=== PATIENT | female | born 1930 | race Caucasian/White ===

== ENCOUNTER 2017-12-16 02:53 | Emergency (ER) | payer OTHER ==
[~2017-12-16] VITALS: Ht 157.5 cm; Wt 58.1 kg
--- NOTE | 2017-12-16 03:31 | ED HEAD/FACIAL INJ COMPLAINT ---
History of Present Illness General Chief Complaint: Fall Stated Complaint: DIZZINESS,NOSE BLEEDING S/P FALL Source: patient, family, old records Exam Limitations: no limitations Vital Signs & Intake/Output Vital Signs & Intake/Output Vital Signs Date Time Temp Pulse Resp B/P B/P Pulse O2 O2 Flow FiO2 Mean Ox Delivery Rate 12/16 0600 97.3 82 18 122/70 97 Room Air 12/16 0303 98.2 97 18 155/74 Allergies Coded Allergies: NO KNOWN ALLERGIES (04/10/11) Reconcile Medications Meclizine HCl 25 MG TABLET 1 TAB PO Q8P PRN DIZZINESS Ondansetron (Zofran Odt) 4 MG TAB.RAPDIS 1 TAB SL TID PRN NAUSEA Triage Nurses Notes Reviewed? yes HPI: Patient got out of bed to go to the bathroom when she lost her balance and fell forward. Patient denies loss of consciousness. Patient hit her head on the floor. Positive nosebleed. Bleeding resolved prior to arrival. The patient went back to bed she began to develop room spinning dizziness with nausea. Patient comes in for evaluation. Patient denies any hip pain. Patient is able to ambulate without difficulty. There is no shoulder pain. There is no chest or abdominal pain. There is no shortness of breath. Past History Travel History Traveled to [place] past 21 day No Medical History Any Pertinent Medical History? see below for history Cardiovascular: hypertension, hyperlipidemia Musculoskeletal: osteoarthritis Surgical History Surgical History: non-contributory Psychosocial History Tobacco Use: Never used ETOH Use: denies use Illicit Drug Use: denies illicit drug use Family History Hx Contributory? No Review of Systems Review of Systems Constitutional: Reports: no symptoms. EENTM: Reports: see HPI, epistaxis. Respiratory: Reports: no symptoms. Cardiovascular: Reports: no symptoms. GI: Reports: no symptoms. Genitourinary: Reports: no symptoms. Musculoskeletal: Reports: no symptoms. Skin: Reports: no symptoms. Neurological/Psychological: Reports: no symptoms. Hematologic/Endocrine: Reports: no symptoms. Immunologic/Allergic: Reports: no symptoms. All Other Systems: Reviewed and Negative Physical Exam Physical Exam General Appearance: well developed/nourished, mild distress Head: normal appearance Eyes: Bilateral: PERRL, EOMI. Ears, Nose, Throat: normal pharynx, normal ENT inspection, hearing grossly normal, NO SEPTAL HEMATOMA Neck: normal inspection, supple Respiratory: normal breath sounds Cardiovascular: regular rate/rhythm Gastrointestinal: soft, non-tender Back: normal inspection Extremities: normal inspection, normal range of motion, no edema Psychiatric: awake, alert, oriented x 3 Cranial Nerves: normal hearing, normal speech, PERRL Coordination/Gait: normal gait Motor/Sensory: no motor/sensory deficits Skin: intact, normal color, warm/dry Lymphatic: no anterior cervical harvey Progress Differential Diagnosis: c-spine injury, facial fracture, ICH, skull fracture Plan of Care: Current Medications Sig/Rose Marie Start time Last Medication Dose Stop Time Status Admin Meclizine HCl 12.5 MG ONCE ONE 12/16 399 UNVr (Antivert) 12/16 400 Diagnostic Imaging: Viewed by Me: CT Scan. Discussed w/RAD: CT Scan. Radiology Impression: PATIENT: DORIS RESENDEZ PRESENT AGE: 87 PATIENT ACCOUNT NO: [id number] : 30 LOCATION: [facility] ORDERING PHYSICIAN: Morgan Castillo MD SERVICE DATE: 12/16/17 EXAM TYPE: CAT - CT CERV SPINE WO IV CONTRAST; CT HEAD WO IV CONTRAST; CT MAXILLOFACIAL W/O CON EXAMINATION: CT HEAD WITHOUT CONTRAST CT FACIAL BONES WITHOUT CONTRAST CT CERVICAL SPINE WITHOUT CONTRAST CLINICAL INFORMATION: Fall. Pain. COMPARISON: None. TECHNIQUE: Imaging was performed from the skull base to vertex without intravenous administration of contrast. In addition, helical noncontrast CT imaging was acquired through the cervical spine and facial bones and source images were reviewed along with axial reconstructions and sagittal and coronal MPRs. DLP: 1787.78 mGy-cm FINDINGS: HEAD: No intracranial mass, hemorrhage, or midline shift is visualized. There is atrophy with prominence of the ventricles and the sulci and hypodensity of the periventricular white matter due to chronic small vessel ischemic disease. There is vascular calcifications of the internal carotid arteries bilaterally. No extra-axial collections are identified. FACIAL BONES: There is no evidence of an acute facial bone fracture. The paranasal sinuses are well aerated. No significant dental disease is visualized. The orbits are unremarkable in appearance. CERVICAL SPINE: There is no evidence of acute cervical spine fracture. Vertebral bodies have normal height and alignment. No fracture. There is degenerative spondylosis. Multilevel advanced degenerative disc height narrowing and endplate spurring and facet joint arthrosis. No pre- or paravertebral soft tissue abnormality is identified. Limited assessment of the lung apices is unremarkable. IMPRESSION: 1. No acute intracranial process or discrete facial bone fracture. 2. No acute cervical spine fracture or traumatic subluxation. DICTATED BY: Johnathan Casey MD DATE/TIME DICTATED:12/16/17338 PROJECT COORDINATOR RN:YANY DATE/TIME TRANSCRIBED:338 CONFIDENTIAL, DO NOT COPY WITHOUT APPROPRIATE AUTHORIZATION. < Electronically signed in Other Vendor System> SIGNED BY: Johnathan Casey MD 351 Departure Departure Disposition: HOME OR SELF CARE Condition: Stable Clinical Impression Primary Impression: Head injury Secondary Impressions: Vertigo Referrals: Zoran Lainez MD (PCP/Family) Departure Forms: Customer Survey General Discharge Information Prescriptions: Current Visit Scripts Meclizine HCl 1 TAB PO Q8P PRN DIZZINESS #30 TAB Ondansetron (Zofran Odt) 1 TAB SL TID PRN NAUSEA #10 TAB
--- NOTE | 2017-12-16 03:52 | CT SCAN REPORT ---
EXAMINATION: CT HEAD WITHOUT CONTRAST CT FACIAL BONES WITHOUT CONTRAST CT CERVICAL SPINE WITHOUT CONTRAST CLINICAL INFORMATION: Fall. Pain. COMPARISON: None. TECHNIQUE: Imaging was performed from the skull base to vertex without intravenous administration of contrast. In addition, helical noncontrast CT imaging was acquired through the cervical spine and facial bones and source images were reviewed along with axial reconstructions and sagittal and coronal MPRs. DLP: 1787.78 mGy-cm FINDINGS: HEAD: No intracranial mass, hemorrhage, or midline shift is visualized. There is atrophy with prominence of the ventricles and the sulci and hypodensity of the periventricular white matter due to chronic small vessel ischemic disease. There is vascular calcifications of the internal carotid arteries bilaterally. No extra-axial collections are identified. FACIAL BONES: There is no evidence of an acute facial bone fracture. The paranasal sinuses are well aerated. No significant dental disease is visualized. The orbits are unremarkable in appearance. CERVICAL SPINE: There is no evidence of acute cervical spine fracture. Vertebral bodies have normal height and alignment. No fracture. There is degenerative spondylosis. Multilevel advanced degenerative disc height narrowing and endplate spurring and facet joint arthrosis. No pre- or paravertebral soft tissue abnormality is identified. Limited assessment of the lung apices is unremarkable. IMPRESSION: 1. No acute intracranial process or discrete facial bone fracture. 2. No acute cervical spine fracture or traumatic subluxation.
[2017-12-16] MEDS ORDERED: ZOFRAN ODT4 M1 SL (04:34)
[2017-12-16] MEDS ORDERED: MECLIZINE HCL25 MG PO (04:34)
[2017-12-16 06:00] VITALS: BP 122/70
== END 2017-12-16 06:02 ==
LOC: ERH 02:53
DX: S09.90XA Unspecified injury of head, initial encounter (principal); R42 Dizziness and giddiness; R04.0 Epistaxis; W19.XXXA Unspecified fall, initial encounter; Y93.89 Activity, other specified; Y92.9 Unspecified place or not applicable
CPT/HCPCS: J3101

== ENCOUNTER 2018-03-06 16:59 | Inpatient (IN) | payer OTHER ==
[~2018-03-06] VITALS: Ht 157.5 cm; Wt 58.5 kg
[~2018-03-06 16:59] MED LIST: ALENDRONATE SOD70 M2 PO; HYDROCHLOROTH12.5 M3 PO; MECLIZINE HCL25 MG PO; ZETIA10 M1 PO; ZOFRAN ODT4 M1 SL
--- NOTE | 2018-03-06 17:50 | ED INFLUENZA/URI COMPLAINT ---
History of Present Illness General Chief Complaint: General Adult Stated Complaint: +N, PAIN UPON INSPIRATION, WEAKNESS Source: patient, family, old records Exam Limitations: no limitations Vital Signs & Intake/Output Vital Signs & Intake/Output Vital Signs Date Time Temp Pulse Resp B/P B/P Pulse O2 O2 Flow FiO2 Mean Ox Delivery Rate 03/06 1729 Room Air 03/06 1716 98.1 100 22 130/88 98 Allergies Coded Allergies: NO KNOWN ALLERGIES (04/10/11) Reconcile Medications Alendronate Sodium 70 MG TABLET 1 TAB PO QW VITAMIN SUPPORT (Reported) in the morning, at least 30 minutes before the first food, beverage, or medication of the day Ezetimibe (Zetia) 10 MG TABLET 1 TAB PO DAILY HIGH CHOLESTROL (Reported) Hydrochlorothiazide 12.5 MG CAPSULE 1 CAP PO DAILY HIGH BLOOD PRESSURE ( Reported) Meclizine HCl 25 MG TABLET 1 TAB PO Q8P PRN DIZZINESS Ondansetron (Zofran Odt) 4 MG TAB.RAPDIS 1 TAB SL TID PRN NAUSEA Triage Note: 87F SAW PMD YESTERDAY FOR SUBSTERNAL CHEST/GASTRIC PAIN WORSE WITH BREATHING AND HAD XRAY DONE. +N AND POOR APPETITE X2-3 DAYS. REPORTS SUBECTIVE FEVERS, AFEBRILE IN TRIAGE. WHITE PRODUCTIVE COUGH FOR A COUPLE WEEKS. Triage Nurses Notes Reviewed? yes HPI: 87F PMH HLD, HTN presenting with a several week history of cough and weakness which has worsened acutely over the past few days. She has no appetite, is very weak and having trouble getting around. She has a productive cough with thick white sputum and is dyspneic with exertion. No sick contacts or recent travel. She is breathing comfortably at rest and speaking in complete sentences. Former smoker 40 pack-year, quit >10 years ago. She also reports nausea. She denies chills, vomiting, chest pain, abdominal pain, diarrhea, dysuria. Past History Travel History Traveled to [place] past 21 day No Medical History Any Pertinent Medical History? see below for history Neurological: NONE EENT: NONE Cardiovascular: hypertension, hyperlipidemia Respiratory: NONE Gastrointestinal: NONE Hepatic: NONE Renal: NONE Musculoskeletal: osteoarthritis Psychiatric: NONE Endocrine: NONE Blood Disorders: NONE Cancer(s): NONE CREDIT CONTROL OFFICER/Reproductive: NONE Surgical History Surgical History: non-contributory Psychosocial History What is your primary language Uzbek Tobacco Use: Refused to answer Family History Hx Contributory? No Review of Systems Review of Systems Constitutional: Reports: no symptoms. EENTM: Reports: no symptoms. Respiratory: Reports: see HPI. Cardiovascular: Reports: no symptoms. GI: Reports: no symptoms. Genitourinary: Reports: no symptoms. Musculoskeletal: Reports: no symptoms. Skin: Reports: no symptoms. Neurological/Psychological: Reports: no symptoms. Hematologic/Endocrine: Reports: no symptoms. Immunologic/Allergic: Reports: no symptoms. All Other Systems: Reviewed and Negative Physical Exam Physical Exam General Appearance: well developed/nourished, mild distress Head: atraumatic, normal appearance Eyes: Bilateral: normal appearance. Ears, Nose, Throat: normal ENT inspection, hearing grossly normal Neck: normal inspection, supple, full range of motion Respiratory: rhonchi bilaterally L>R Cardiovascular: regular rate/rhythm Gastrointestinal: soft, non-tender Back: normal inspection, normal range of motion Extremities: normal inspection, normal capillary refill, normal range of motion Neurologic/Psych: awake, alert, oriented x 3, normal mood/affect Skin: intact, normal color, warm/dry Core Measures Sepsis Present: No Sepsis Focused Exam Completed? No Progress Differential Diagnosis: influenza, meningitis, neutropenia, otitis, pneumonia, pharyngitis, sinusitis Plan of Care: Orders Procedure Date/time Status RAPID VIRAL INFLUENZA A 03/06 1745 Complete LOWER RESPIRATORY CULTURE 03/06 1745 Active EKG 03/06 1703 Active Current Medications Sig/Rose Marie Start time Last Medication Dose Stop Time Status Admin Ondansetron HCl 4 MG ONCE ONE 03/06 1815 UNVr 03/06 (Zofran) 03/06 1816 1836 Azithromycin 500 MG ONCE ONE 03/06 1800 UNVr 03/06 (Zithromax) 03/06 1859 1836 Sodium Chloride 250 ML (Normal Saline 0.9%) Ceftriaxone Sodium 1,000 MG ONCE ONE 03/06 1800 UNVr 03/06 (Rocephin) 03/06 1801 1835 Microbiology 03/06 181 NASOPHARYN: Influenza Virus A & B Rapid Smear - COMP 03/06 174 LOWER RESP: Respiratory Culture - ORD 03/06 174 LOWER RESP: Gram Stain - ORD Initial ED EKG: normal sinus rhythm, no ST T wave changes Departure Departure Disposition: STILL A PATIENT Condition: Stable Clinical Impression Primary Impression: Left lower lobe pneumonia Referrals: Zoran Lainez MD (PCP/Family) Departure Forms: Customer Survey General Discharge Information Admission Note Spoke With: Sesar Carrasquillo MD Documentation of Exam: Documentation of any treatments & extenuating circumstances including Concerns Regarding Discharge (functional status, medication knowledge or non-compliance, living conditions, etc.) that warrant an admission rather than observation: left sided pneumonia, poor PO intake, weakness, failed outpatient antibiotics, will admit for IV antibiotics, pulmonary consult, cultures, nutrition evaluation, physical therapy.
[2018-03-06] MEDS ORDERED: DOXYCYCLINE HY100 M4 PO (18:57)
[2018-03-06] MEDS ORDERED: METOPROLOL TART50 M1 PO (18:58)
[2018-03-06] MEDS ORDERED: SIMVASTATIN40 M1 PO (18:58)
[2018-03-06] MEDS ORDERED: ACETAMINOPHEN500 M4 PO (18:59)
[2018-03-06] MEDS ORDERED: ASPIRIN EC81 M1 PO (19:00)
--- NOTE | 2018-03-06 19:35 | History & Physical ---
KyVasquez 03/06/181926: General Information and HPI MD Statement: I have seen and personally examined DORIS RESENDEZ and documented this H&P. The patient is a 87 year old F who presented with a patient stated chief complaint of cough, shortness breath, chest pain and weakness for last 3 weeks. []. Source of Information: patient, old records Exam Limitations: no limitations History of Present Illness: 87 YO F ex-smoker with PMH of HTN, HLD and osteoarthritis came to ED with chief complaint of cough, shortness of breath, chest pain and weakness for last 3 weeks. Patient reported that she was in her usual state of health 3 weeks back when she noticed having cough that's intermittent and also associated phlegm that's whitish in color, not foul-smelling or blood in it. Patient reported that her exertional dyspnea is progressively worsening. She also reported the her cough is also worsening. She also developed having chest pain, sharp, 5/10 aggravated with deep breath, cough and no relieving factor. Patient also reported having orthopnea and she is using pillows and sleeping in recliner. Patient denied palpitations, lightheadedness, chills, fever, sick contact, trauma to the chest, vomiting, abdominal pain, diarrhea, constipation and dysuria. Patient also reported having nausea for last couple of weeks. Patient reported that she went to see Dr. Lainez for 3 days pack and she was started on antibiotics but she didn't get better so she decided to come to ED today. Patient was also using Mucinex for her cough. She is living at home with her daughter and taking care of herself. In December 2017 she fell down and passed out, after that she started to use a walker for walking. ED course: Vitals: Temperature 98.1, pulse 100, respiratory rate 22, blood pressure 130/88, oxygen saturation 98% on room air Labs: WBC count 14.3, hemoglobin 11.7, hematocrit 35.3, platelet count 659, sodium 136, potassium 3.8, anion gap 16, BUN 17, creatinine 0.7, glucose 110, HbA1c 6.0, AST 30, ALT 62, troponin less than 0.01, direct bilirubin 0.5 Rapid flu test was negative and sputum cultures were obtained in ED. Allergies/Medications Allergies: Coded Allergies: NO KNOWN ALLERGIES (04/10/11) Home Med list Acetaminophen 500 MG TABLET 2 TAB PO Q4H PRN PAIN (Reported) Alendronate Sodium 70 MG TABLET 1 TAB PO QSUN OSTEOPOROSIS (Reported) in the morning, at least 30 minutes before the first food, beverage, or medication of the day Aspirin (Ecotrin*) 81 MG TABLET.DR 1 TAB PO DAILY HEART/BLOOD (Reported) Doxycycline Hyclate 100 MG TABLET 1 TAB PO BID ABX (Reported) Ezetimibe (Zetia) 10 MG TABLET 1 TAB PO DAILY HIGH CHOLESTROL (Reported) Hydrochlorothiazide 12.5 MG CAPSULE 1 CAP PO DAILY HIGH BLOOD PRESSURE ( Reported) Metoprolol Tartrate 50 MG TABLET 1 TAB PO BID HEART/BP (Reported) Simvastatin (Simvastatin*) 40 MG TABLET 1 TAB PO QHS CHOLESTEROL (Reported) Past History Travel History Traveled to [place] past 21 day No Medical History Neurological: NONE EENT: NONE Cardiovascular: hypertension, hyperlipidemia Respiratory: NONE Gastrointestinal: NONE Hepatic: NONE Renal: NONE Musculoskeletal: osteoarthritis Psychiatric: NONE Endocrine: NONE Blood Disorders: NONE Cancer(s): NONE HEAD GROWER/Reproductive: NONE Surgical History Surgical History: non-contributory Review of Systems Review of Systems Constitutional: Reports: weakness. Denies: chills, fever. EENTM: Reports: no symptoms. Cardiovascular: Reports: chest pain. Denies: palpitations, syncope. Respiratory: Reports: cough, orthopnea, short of breath, sputum production. Denies: wheezing. GI: Denies: abdominal pain, constipation, diarrhea, melena, nausea, bloody stool. Genitourinary: Reports: no symptoms. Musculoskeletal: Reports: no symptoms. Skin: Reports: no symptoms. Hematologic/Endocrine: Reports: no symptoms. Exam & Diagnostic Data Last 24 Hrs of Vital Signs/I&O Vital Signs Date Time Temp Pulse Resp B/P B/P Pulse O2 O2 Flow FiO2 Mean Ox Delivery Rate 03/06 1926 98.4 99 20 109/68 94 Nasal 2.0L Cannula 03/06 1729 Room Air 03/06 171 98.1 100 22 130/88 98 Physical Exam General Appearance Alert, Oriented X3, Cooperative Skin No Rashes Skin Temp/Moisture Exam: Warm/Dry Sepsis Skin Exam (color): Normal for Ethnicity HEENT Atraumatic, PERRLA, EOMI Neck Supple Cardiovascular Normal S1, Normal S2 Lungs crepitus on left side Abdomen Soft, No Tenderness Neurological Normal Speech, Strength at 5/5 X4 Ext, Normal Tone Extremities No Edema Last 24 Hrs of Labs/Michael: Microbiology 03/06 181 NASOPHARYN: Influenza Virus A & B Rapid Smear - COMP 03/06 1745 LOWER RESP: Respiratory Culture - ORD 03/06 1745 LOWER RESP: Gram Stain - ORD Assessment/Plan Assessment: 87 YO F ex-smoker with PMH of HTN, HLD and osteoarthritis came to ED with chief complaint of cough, shortness of breath, chest pain and weakness for last 3 weeks. We will admit the patient on general medicine floor to treat for following problems: Community-acquired pneumonia: -Continue to respond to outpatient treatment -Supplemental oxygen as needed to keep oxygen saturation above 92% -TRC nebulization as needed -Mucinex for cough -Continue ceftriaxone and azithromycin. day 1 -Follow blood cultures -Follow sputum cultures -Urine strep and Legionella antigen -Incentive spirometry -Chest physiotherapy Chest pain: -Probably due to pleurisy -We will check her troponin EKG History of hypertension: -Continue her home medications History of hyperlipidemia: -Continue Lipitor History of osteoarthritis: -Follow pain pathway DVT prophylaxis: Mechanical and subcutaneous Lovenox CODE STATUS: Full code As Ranked By This Provider Problem List: 1. Left lower lobe pneumonia Core Measures/Misc (07/27) Acute Coronary Syndrome ACS Diagnosis: No Congestive Heart Failure Congestive Heart Failure Diagnosis No Cerebrovascular Accident CVA/TIA Diagnosis: No VTE (View Protocol) VTE Risk Factors Age>40 No Mechanical VTE Prophylaxis d/t N/A MechProphylax Ordered No VTE Pharm Prophylaxis d/t NA PharmProphylax ordered Sepsis (View protocol) Sepsis Present: No Nita Everett 03/07/18 0151: Resident Review Statement Resident Statement: examined this patient, discussed with internal grinder, agreed with internal grinder, reviewed images, amended to note Other Findings: 87-year-old lady with past medical history of gallbladder removal, appendectomy, hypertension, osteoarthritis, hyperlipidemia came to the hospital for chief complaint of cough and not feeling well. Patient reported that she had an episode of fall and concussion about one months ago and since then she had episodes of nausea. About 3 weeks ago she started developing cough with white phlegm mostly exertional dyspnea which is getting worse. She developed pleuritic chest pain due to coug as well which is sharp, 5 out of 10 in getting worse with deep breathing and coughing sometimes gets resolved by Tylenol. She reports having orthopnea and using pillows while sleeping. Denies any nausea, vomiting, fevers, chills, sick contacts, abdominal pain, constipation, dysuria, palpitations at the moment. Patient saw her PCP yesterday and was prescribed Mucinex and doxycycline however she was not feeling good and came to the hospital. Vitals in ED, no fevers, normal blood pressures, pulse rate 100, respiratory 22, 92% O2 saturation on 2 L Labs are notable for WBC 14.3(being elevated since December), hemoglobin 11.7( dropped from 13 0), platelet 659, sodium 136, chloride 97, direct bilirubin 0.7, AST 69, ALT 75, alkaline phosphatase 236.7, CRP more than 9, BNP is 763, troponin within normal limits, acetaminophen level less than 10 CXR: New tiny left pleural effusion. EKG showed nonspecific ST-T changes, QTc 434, sinus tachycardia 111 Physical exam Patient is alert and oriented 3 on 2 L oxygen not in distress Chest left-sided crackles in the base Heart S1-S2 normal, mild tachycardia Abdomen not distended, no tenderness Lower extremities has trace bilateral edema Assessment Shortness of breath and possible History of hypertension History of hyperlipidemia Transaminitis Elevated CRP Mildly elevated BMP Plan Admit to general medicine floor Check LFTs in the morning and limited abdominal ultrasound to rule out any biliary pathology (DDX at the moment is sepsis, remains gallstones in the bile duct, ) Mild IV hydration with 50 cc/h for 10 hours Hold hydrochlorothiazide and continue metoprolol Continue IV ceftriaxone and azithromycin Check UA, coagulation panel, LDH, retic count, LFTs in am Patient may need echocardiogram to rule out new onset CHF Hold a statin and continue Zetia If patient is still remained tachycardic but should do CTA and also CT abdomen and pelvis to rule out any intra-abdominal pathology and pulmonary embolism since the patient was less active during this month Full code, Tylenol for pain, heart healthy diet, DVT prophylaxis is mechanical and subq Sesar Sanabria MD 03/07/18 1516: Attending MD Review Statement Attending Statement Attending MD Statement: examined this patient, discuss w/resident/PA/CITY SURVEYOR, discussed with family, reviewed EMR data (avail), amended to note Attending Assessment/Plan: Please see Attending Brief Note
[2018-03-06 20:18] VITALS: BP 124/66
[2018-03-07 06:07] VITALS: BP 114/68
--- NOTE | 2018-03-07 06:12 | PN- Housestaff ---
See Addendum Subjective Follow-up For: Community-acquired pneumonia Transaminitis Subjective: No overnight events. Patient remained afebrile. Seen and examined this morning. She denied any palpitation, nausea, vomiting, abdominal pain and dysuria. Patient reported having chest pain while taking deep breaths 10. She also reported having cough with whitish colored sputum. Patient is using 2 L of oxygen and maintaining saturation 92% Review of Systems Constitutional: Denies: chills, fever. EENTM: Reports: no symptoms. Cardiovascular: Denies: chest pain, palpitations. Respiratory: Reports: cough, sputum production. Denies: short of breath, wheezing. Gastrointestinal: Denies: abdominal pain, constipation, diarrhea, nausea. Genitourinary: Reports: no symptoms. Neurological/Psychological: Reports: no symptoms. Objective Last 24 Hrs of Vital Signs/I&O Vital Signs Date Time Temp Pulse Resp B/P B/P Pulse O2 O2 Flow FiO2 Mean Ox Delivery Rate 03/07 0607 97.7 94 20 114/68 87 03/07 0126 124/66 03/07 0000 92 Nasal 2.0L Cannula 03/06 2018 97.5 107 19 124/66 92 Room Air 2.0L 03/06 2018 92 Nasal 2.0L Cannula 03/06 1926 98.4 99 20 109/68 94 Nasal 2.0L Cannula 03/06 1729 Room Air 03/06 1716 98.1 100 22 130/88 98 Intake & Output 03/07 0800 03/07 0000 03/06 1600 Intake Total 270 335 Output Total Balance 270 335 Intake, IV 150 275 Intake, Oral 120 60 Patient 128 lb Weight Weight Bed scale Measurement Method Physical Exam General Appearance: Alert, Oriented X3, Cooperative Skin Temp/Moisture Exam: Warm/Dry Sepsis Skin Exam (color): Normal for Ethnicity HEENT: Atraumatic, PERRLA, EOMI Neck: Supple Cardiovascular: Normal S1, Normal S2 Lungs: Clear to Auscultation Abdomen: Soft, No Tenderness Neurological: Normal Speech, Strength at 5/5 X4 Ext, Normal Tone Extremities: No Edema Assessment/Plan Assessment: 87 YO F ex-smoker with PMH of HTN, HLD and osteoarthritis came to ED with chief complaint of cough, shortness of breath, chest pain and weakness for last 3 weeks. We are following the patient for following problems: Community-acquired pneumonia: -Continue to respond to outpatient treatment -Supplemental oxygen as needed to keep oxygen saturation above 92% -TRC nebulization as needed -Mucinex for cough -Continue ceftriaxone and azithromycin. day 2 -Follow blood cultures -Follow sputum cultures -Urine strep and Legionella antigen -Incentive spirometry -Chest physiotherapy Chest pain: -Probably due to pleurisy -Her troponin and EKGs are negative for any ischemic cardiac injury. Transaminitis: -Possibly drug-induced. -Follow-up LFTs History of hypertension: -Continue her home medications History of hyperlipidemia: -Continue Lipitor History of osteoarthritis: -Follow pain pathway DVT prophylaxis: Mechanical and subcutaneous Lovenox CODE STATUS: Full code Problem List: 1. Left lower lobe pneumonia Pain Ratin Pain Location: none Pain Goal: Remain pain free Pain Plan: pain pathway Tomorrow's Labs & Rationales: cbc/bep/LFTs
--- NOTE | 2018-03-07 08:39 | ULTRASOUND REPORT ---
EXAMINATION: ABDOMINAL ULTRASOUND LIMITED CLINICAL INFORMATION: Elevated LFTs. COMPARISON: None. TECHNIQUE: Real-time imaging of the right upper quadrant abdominal viscera. FINDINGS: PANCREAS: The visualized pancreatic head and body are normal in appearance. The remainder of the pancreas is obscured from visualization by the overlying bowel gas. LIVER: The liver is of normal size and echogenicity without focal lesions nor intrahepatic biliary ductal dilation. GALLBLADDER: The patient is status post cholecystectomy. COMMON BILE DUCT: Normal in caliber measuring 0.8 cm in diameter. RIGHT KIDNEY: Normal. No hydronephrosis. No renal calculi or focal parenchymal lesions. The kidney measures 9.8 cm in maximum dimension. FREE FLUID: None. IMPRESSION: Unremarkable limited right upper quadrant ultrasound status post cholecystectomy.
[2018-03-07 10:23] LABS: PT 14.1 SEC (9.4-12.5); PTT 28 SEC (25-37)
[2018-03-07 10:43] LABS: ABSOLUTE BASOPHIL COUNT 0 /CUMM (0.0-0.2); ABSOLUTE EOSINOPHIL COUNT 0 /CUMM (0.0-0.7); ABSOLUTE GRANULOCYTE CT 12.3 /CUMM (1.4-6.5); ABSOLUTE LYMPH COUNT 1.3 /CUMM (1.2-3.4); ABSOLUTE MONOCYTE COUNT 0.9 /CUMM (0.10-0.60); BASOPHIL % 0 % (0.0-2.0); EOSINOPHIL % 0.2 % (0-5); GRANULOCYTE % 84.3 % (42.2-75.2); MEAN CORPUSCULAR HGB 28.9 PG (27.0-31.0); MEAN CORPUSCULAR HGB CONC 33.5 G/DL (33.0-37.0); MEAN CORPUSCULAR VOLUME 86.4 FL (81.0-99.0); MEAN PLATELET VOLUME 7.2 FL (7.4-10.4); PLATELET COUNT 600 /CUMM (130-400); RBC DISTRIBUTION WIDTH 14.8 % (11.5-14.5); RED BLOOD CELL CT 3.51 /CUMM (4.20-5.40)
[2018-03-07 12:07] LABS: HEMATOCRIT 30.3 % (37-47); WHITE BLOOD CELL COUNT 14.6 /CUMM (4.8-10.8)
--- NOTE | 2018-03-07 12:47 | CT SCAN REPORT ---
EXAMINATION: CT ANGIOGRAM OF THE CHEST WITH CONTRAST (CT PULMONARY ANGIOGRAM FOR PE) CLINICAL INFORMATION: Tachycardia. Elevated d-dimer. Evaluate for pulmonary embolism. COMPARISON: Chest CT from 12/20/2017. TECHNIQUE: Prior to contrast administration, noncontrast localization images were obtained. Subsequently, multidetector volumetric imaging was performed from the thoracic inlet to below the diaphragms following the administration of 80 mL of Optiray 320 intravenous contrast. No contrast reaction reported. Sagittal, coronal, and MIP oblique sagittal reformatted images were obtained on the CT workstation, uploaded to PACS, and reviewed. DLP: Total exam dose-length product 252 mGy-cm FINDINGS: QUALITY OF STUDY/CONTRAST BOLUS: Satisfactory. PULMONARY ARTERIES: Pulmonary arteries are normal in size. No embolic filling defects are identified within the main, lobar or segmental vessels. THORACIC AORTA: Mild atherosclerotic calcification of the thoracic aorta without aneurysm or dissection. LUNGS AND PLEURA: Trachea and central airways are widely patent and normal in caliber. There is wall calcification of the bronchial tree - relatively common finding in elderly patients. Uqpulftf-ux-moscxj centrilobular emphysema. Small bilateral pleural effusions with compressive atelectasis in lower lobes are new findings compared to 12/20/2017. Mild atelectasis in inferior lingula and medial segment of middle lobe, as well. CARDIOVASCULAR: The heart size is normal. There is mild atherosclerotic calcification of coronary arteries. No inward bowing of the interventricular septum. Xihkt-fz-vucaygeb pericardial effusion is new compared to 12/20/2017. MEDIASTINUM: The esophagus has normal wall thickness. Thyroid gland is atrophied. No mediastinal mass. LYMPHATICS: No internal mammary, axillary or hilar lymphadenopathy. Multiple small lymph nodes of < 1 cm short axis dimension are present in the mediastinum, not pathologic on the basis of size criteria. UPPER ABDOMEN: Gallbladder is surgically absent. No reflux of contrast into the IVC. OSSEOUS STRUCTURES: No aggressive osseous lesions. IMPRESSION: 1. No evidence of pulmonary embolism. 2. Centrilobular pulmonary emphysema. 3. Cfspf-zq-szpjpjaa pericardial effusion is new compared to 12/20/2017; consider possibility of pericarditis. 4. New, small pleural effusions and bibasilar atelectasis.
[2018-03-07 13:33] VITALS: BP 122/70
--- NOTE | 2018-03-07 13:36 | Event Note ---
Event Note Event Note: Patient presented with pleuritic chest pain and nonspecific ST/T-wave changes on EKG. CTA was performed for d-dimer elevation, hypoxia, and tachycardia out of concern of pulmonary embolism. CTA was negative for pulmonary embolism but did show signs of pericarditis with a new small to moderate pericardial effusion. After speaking to Dr. Carrasquillo and Dr. Crouch, we will transfer the patient to telemetry for further management and closer monitoring. I will get a repeat troponin and an echocardiogram. I will also start the patient on ibuprofen 600 mg 3 times daily and omeprazole 40mg QD for GI prophylaxis.
[2018-03-07 14:42] VITALS: BP 104/62
--- NOTE | 2018-03-07 15:12 | PN- Att Addend ---
Attending Addendum Attending Brief Note Mrs. Mann was interviewed and examined. Her EMR was reviewed. Her history and past medical history also reviewed reviewed. T 98.0 P 132 R 20 BP 122/70 SaO2 94% (4 L nasal cannula) telemetry sinus tach She is in no acute distress and alert and oriented 3. There is no JVD Pulmonary exam shows mildly decreased breath sounds with bilateral bibasilar fine inspiratory rales Cardiac exam is notable for tachyarrhythmia. There is a rub heard at the left sternal border. Abdomen is soft and nontender. Lower extremities are benign CBC shows WBC of 14,600, H&H of 10.1/30.3, and platelets of 600,000. Electrolytes showed mild hyponatremia/hypochloremia. Renal function is intact. Mild elevations in her LFTs are trending downward. Serial troponin are negative. EKG showing tachyarrhythmia with diffuse ST-T changes which are similar to a previous EKG with normal rate. CTA showing moderate to severe central emphysema with small bilateral pleural effusions. There is a new small to moderate sized pericardial effusion. Problems: -Pericardial effusion and an elderly female was noted progressive dyspnea and central pleuritic chest pain after an initial presumed viral illness -No evidence of infiltrate on CTA -Hypertension -Dyslipidemia -Osteoporosis -Mild hyponatremia, borderline hypokalemia -Resolving related LFTs Plan: -Patient initially admitted to [facility] but will now be transferred to telemetry -Patient will need echocardiogram -Serial troponin and EKG -follow LFT's -Hold HCTZ -Potassium supplementation -Continue beta kane and statin -indomethcin or ibuprofen -Cardiology consultation -discontinue azithromycin/ceftriaxone Case discussed with ED physician last evening again with resident this AM.
--- NOTE | 2018-03-07 15:23 | Cons- Cardiology ---
General Information and HPI Consulting Request Date of Consult: 03/07/18 Requested By: Sesar Carrasquillo MD Reason for Consult: Chest discomfort; probable pericarditis Source of Information: patient, family Exam Limitations: no limitations History of Present Illness: The patient is a pleasant 87-year-old female who is followed by Dr. Berger for her cardiac related issues. Her past medical history is remarkable for hypertension, hyperlipidemia, and osteoarthritis. The patient is admitted via the emergency room with 3 weeks of increasing shortness of breath, cough, and pleuritic/positional chest discomfort. The patient's story began in December where she had a syncopal episode and fall. Subsequently, she was seen in the emergency room twice in August for chest discomfort and nonspecific symptoms. She has now had worsening cough/shortness of breath/pleuritic chest discomfort over the last few weeks with a recent onset of nausea and anorexia. She has also noted worsening of her exertional dyspnea, per the patient. The patient was admitted yesterday via the emergency room to the nonmonitored floor for possible pneumonia, however, today, due to persistent tachycardia and chest discomfort she was moved to telemetry for closer monitoring. Allergies/Medications Allergies: Coded Allergies: NO KNOWN ALLERGIES (04/10/11) Home Med List: Acetaminophen 500 MG TABLET 2 TAB PO Q4H PRN PAIN (Reported) Alendronate Sodium 70 MG TABLET 1 TAB PO QSUN OSTEOPOROSIS (Reported) in the morning, at least 30 minutes before the first food, beverage, or medication of the day Aspirin (Ecotrin*) 81 MG TABLET.DR 1 TAB PO DAILY HEART/BLOOD (Reported) Doxycycline Hyclate 100 MG TABLET 1 TAB PO BID ABX (Reported) Ezetimibe (Zetia) 10 MG TABLET 1 TAB PO DAILY HIGH CHOLESTROL (Reported) Hydrochlorothiazide 12.5 MG CAPSULE 1 CAP PO DAILY HIGH BLOOD PRESSURE ( Reported) Metoprolol Tartrate 50 MG TABLET 1 TAB PO BID HEART/BP (Reported) Simvastatin (Simvastatin*) 40 MG TABLET 1 TAB PO QHS CHOLESTEROL (Reported) Current Medications: Current Medications Sig/Rose Marie Start time Last Medication Dose Route Stop Time Status Admin Acetaminophen 325 MG Q6P PRN 03/07 2345 CAN PO Acetaminophen 650 MG Q6P PRN 03/07 0145 AC 03/07 PO 0619 Acetaminophen 650 MG ONCE ONE 03/06 2315 DC 03/06 PO 03/06 2316 2333 Albuterol Sulfate 3 ML Q4P PRN 03/07 0800 AC 03/07 INH 0752 Aspirin Buffered 81 MG DAILY 03/07 0900 AC 03/07 PO 0918 Atorvastatin Calcium 20 MG 1700 03/07 1700 CAN PO Azithromycin 500 MG DAILY 03/07 1800 AC Sodium Chloride 250 ML IV Azithromycin 500 MG ONCE ONE 03/06 1800 DC 03/06 Sodium Chloride 250 ML IV 03/06 1859 1836 Benzonatate 100 MG TID PRN 03/07 0900 AC PO Ceftriaxone Sodium 1,000 MG DAILY 03/07 1800 AC IV Ceftriaxone Sodium 0 .STK-MED ONE 03/06 1832 DC .ROUTE Ceftriaxone Sodium 1,000 MG ONCE ONE 03/06 1800 DC 03/06 IV 03/06 1801 1835 Enoxaparin Sodium 40 MG DAILY 03/08 0900 AC SC Enoxaparin Sodium 40 MG DAILY 03/07 0900 DC SC Enoxaparin Sodium 30 MG DAILY 03/07 0900 DC SC Enoxaparin Sodium 30 MG DAILY 03/07 0900 DC 03/07 SC 0919 Ezetimibe 10 MG DAILY 03/07 0900 AC 03/07 PO 0918 Guaifenesin 10 ML Q4P PRN 03/06 2345 AC PO Ibuprofen 600 MG TID 03/07 1400 AC 03/07 PO 1316 Melatonin 3 MG ONCE ONE 03/07 2245 CAN PO 03/07 2246 Melatonin 3 MG AT BEDTIME 03/07 2100 DC PO Melatonin 3 MG ONCE ONE 03/06 2315 DC 03/06 PO 03/06 2316 2332 Metoprolol Tartrate 50 MG ONCE ONE 03/06 2345 DC 03/07 PO 03/06 2346 0126 Omeprazole 40 MG DAILY AC 03/07 1300 AC 03/07 PO 1316 Ondansetron HCl 0 .STK-MED ONE 03/06 1831 DC .ROUTE Ondansetron HCl 4 MG ONCE ONE 03/06 1815 DC 03/06 IV 03/06 1816 1836 Sodium Chloride 1,000 ML Q20H 03/07 0145 CAN IV 03/07 2144 Sodium Chloride 500 ML BOLUS ONE 03/07 0145 DC 03/07 IV 03/07 1144 0311 Past History Travel History Traveled to [place] past 21 day No Medical History Blood Transfusion Hx: Yes Neurological: NONE EENT: NONE Cardiovascular: hypertension, hyperlipidemia Respiratory: NONE Gastrointestinal: NONE Hepatic: NONE Renal: NONE Musculoskeletal: osteoarthritis Psychiatric: NONE Endocrine: NONE Blood Disorders: NONE Cancer(s): NONE RESERVATIONS SPECIALIST/Reproductive: NONE Surgical History Surgical History: CHOLECYSTECTOMY HERNIA Psychosocial History Where Do You Live? Home Smoking Status: Former Smoker Exam & Diagnostic Data Vital Signs and I&O Vital Signs Date Time Temp Pulse Resp B/P B/P Pulse O2 O2 Flow FiO2 Mean Ox Delivery Rate 03/07 1442 98.9 118 20 104/62 93 Nasal 4.0L Cannula 03/07 1333 98.0 132 20 122/70 94 Nasal Cannula 03/07 1108 Nasal 4.0L Cannula 03/07 0800 91 Nasal 4.0L Cannula 03/07 0607 97.7 94 20 114/68 87 03/07 0126 124/66 03/07 0000 92 Nasal 2.0L Cannula 03/06 2018 97.5 107 19 124/66 92 Room Air 2.0L 03/06 2018 92 Nasal 2.0L Cannula 03/06 1926 98.4 99 20 109/68 94 Nasal 2.0L Cannula 03/06 1729 Room Air 03/06 1716 98.1 100 22 130/88 98 Intake & Output 03/07 1600 03/07 0800 03/07 0000 03/06 1600 03/06 0800 03/06 0000 Intake Total 500 270 335 Output Total 350 Balance 150 270 335 Intake, IV 100 150 275 Intake, Oral 400 120 60 Output, Urine 350 Patient 128 lb Weight Weight Bed scale Measurement Method Physical Exam: General Appearance: well developed/nourished, elderly female, alert, awake, oriented, blood pressure 100/60, pulses paradoxus 10 mmHg, heart rate 106 Head: normal HEENT: Normal Neck: supple, JVP normal, carotid upstrokes normal bilaterally, no masses or thyromegaly Respiratory: chest non-tender, clear to auscultation and percussion bilaterally Cardiovascular: regular rate/rhythm, normal S1, S2, 2/6 systolic murmur left mid to lower sternal border Abdomen: normal bowel sounds, soft, non-tender Extremities: normal inspection, no edema Vascular: Pulses are 2+ and equal bilaterally Neurologic: Grossly normal/nonfocal Labs/Michael Results: Laboratory Tests 03/07 03/07 0806 0805 Chemistry Sodium (137 - 145 mmol/L) 131 L Potassium (3.5 - 5.1 mmol/L) 3.6 Chloride (98 - 107 mmol/L) 95 L Carbon Dioxide (22 - 30 mmol/L) 22 Anion Gap (5 - 16) 14 BUN (7 - 17 mg/dL) 12 Creatinine (0.5 - 1.0 mg/dL) 0.7 Estimated GFR (>60 ml/min) > 60 BUN/Creatinine Ratio (7 - 25 %) 17.1 Total Bilirubin (0.2 - 1.3 mg/dL) 0.7 Direct Bilirubin (< 0.4 mg/dL) 0.6 H AST (14 - 36 U/L) 40 H ALT (9 - 52 U/L) 49 Alkaline Phosphatase (<127 U/L) 187 H Troponin I (< 0.11 ng/ml) < 0.01 Total Protein (6.3 - 8.2 g/dL) 6.1 L Albumin (3.5 - 5.0 g/dL) 3.0 L Coagulation PT (9.4 - 12.5 SEC) 14.1 H INR (0.90 - 1.19) 1.29 H APTT (25 - 37 SEC) 28 D-Dimer High Sensitivty (0 - 243 ng/ml) 3944 H Hematology CBC w Diff NO MAN DIFF REQ WBC (4.8 - 10.8 /CUMM) 14.6 H RBC (4.20 - 5.40 /CUMM) 3.51 L Hgb (12.0 - 16.0 G/DL) 10.1 L Hct (37 - 47 %) 30.3 L MCV (81.0 - 99.0 FL) 86.4 MCH (27.0 - 31.0 PG) 28.9 MCHC (33.0 - 37.0 G/DL) 33.5 RDW (11.5 - 14.5 %) 14.8 H Plt Count (130 - 400 /CUMM) 600 H MPV (7.4 - 10.4 FL) 7.2 L Gran % (42.2 - 75.2 %) 84.3 H Lymphocytes % (20.5 - 51.1 %) 9.1 L Monocytes % (1.7 - 9.3 %) 6.4 Eosinophils % (0 - 5 %) 0.2 Basophils % (0.0 - 2.0 %) 0 Absolute Granulocytes (1.4 - 6.5 /CUMM) 12.3 H Absolute Lymphocytes (1.2 - 3.4 /CUMM) 1.3 Absolute Monocytes (0.10 - 0.60 /CUMM) 0.9 H Absolute Eosinophils (0.0 - 0.7 /CUMM) 0 Absolute Basophils (0.0 - 0.2 /CUMM) 0 Retic Count (0.5 - 2.0 %) 2.51 H Urines Urinalysis LIGHT H Urine Color (YEL,AMB,STR) BELINDA Urine Clarity (CLEAR) CLEAR Urine pH (5.0 - 8.0) 6.0 Ur Specific [place] (1.001 - 1.035) 1.025 Urine Protein (NEG,<30 MG/DL) NEG Urine Ketones (NEG) NEG Urine Nitrite (NEG) NEG Urine Bilirubin (NEG) NEG Urine Urobilinogen (0.1 - 1.0 EU/dl) 0.2 Ur Leukocyte Esterase (NEG) NEG Ur Microscopic SEDIMENT EXAMINED Urine RBC (0 - 5 /HPF) 1-3 Urine WBC (0 - 2 /HPF) 3-5 H Ur Epithelial Cells (NONE,FEW) OCCAS Urine Bacteria (NEG/NONE) FEW H Hyaline Casts (0/LPF) 10-15 H Granular Casts (NONE /LPF) 10-15 H Urine Mucus (FEW,NONE) FEW Urine Hemoglobin (NEG) TRACE-INTACT Urine Glucose (N MG/DL) NEG 03/060 Chemistry Total Bilirubin (0.2 - 1.3 mg/dL) 0.7 Direct Bilirubin (< 0.4 mg/dL) 0.7 H AST (14 - 36 U/L) 69 H ALT (9 - 52 U/L) 75 H Alkaline Phosphatase (<127 U/L) 235 H Lactate Dehydrogenase (313 - 618 U/L) 599 Troponin I (< 0.11 ng/ml) < 0.01 C-Reactive Prot, Quant (<1.0 mg/dL) > 9.0 H Tis-B-Yozswqqopzr Pept (<125 pg/mL) 763 H Total Protein (6.3 - 8.2 g/dL) 6.9 Albumin (3.5 - 5.0 g/dL) 3.5 Toxicology Acetaminophen (10.0 - 30.0 ug/mL) < 10.0 L Diagnostic Data EKG Results Sinus tachycardia with nonspecific ST-T changes. No change from prior EKG except for rate Other Results CTA chest: IMPRESSION: 1. No evidence of pulmonary embolism. 2. Centrilobular pulmonary emphysema. 3. Itujs-xe-cvikvtek pericardial effusion is new compared to 12/20/2017; consider possibility of pericarditis. 4. New, small pleural effusions and bibasilar atelectasis. Assessment/Plan Assessment/Plan Assessment: 1. Pleuritic/positional chest discomfort with pericardial effusion noted on chest CT; probable pericarditis; mild leukocytosis 1 a. 2/6 to 3/6 systolic murmur, possible pericardial rub, possible mitral insufficiency 2. History of syncope with possible chest trauma in December 3. Hypertension 4. Hyperlipidemia 5. Mild hyponatremia 6. Elevated liver function tests-improving Recommendations: -Monitor on telemetry -IV fluid hydration at 100 cc/h -Start nonsteroidal anti-inflammatory agents as discussed -Echocardiogram tomorrow -Please make sure that sed rate, proBNP, TSH, etc. have all been checked -In the absence of any overt infectious process, discontinue antibiotics -Hold diuretics -Follow-up labs in a.m. -Full cultures, including blood cultures to rule out occult issue such as endocarditis, etc. Consult Acknowledgment - Thank you for your consult request.
[2018-03-07 21:00] VITALS: BP 98/62
[2018-03-07 23:00] VITALS: BP 98/62
[2018-03-08 07:00] VITALS: BP 104/62
--- NOTE | 2018-03-08 08:40 | PN- Housestaff ---
Subjective Follow-up For: chest pain cough Tele-Events Since Last Visit: sinus rhythm 1st degree block HR 70s80s Subjective: patient continues to complain of persistent nonproductive cough, chest pain and weakness Review of Systems Constitutional: Reports: see HPI. Objective Last 24 Hrs of Vital Signs/I&O Vital Signs Date Time Temp Pulse Resp B/P B/P Pulse O2 O2 Flow FiO2 Mean Ox Delivery Rate 03/08 1816 100.7 03/08 1418 97.9 115 20 112/70 93 Nasal 3.0L Cannula 03/08 0847 92 Nasal 3.0L Cannula 03/08 0800 Nasal 4.0L Cannula 03/08 0700 97.7 91 20 104/62 92 03/08 0000 Nasal 4.0L Cannula 03/07 2300 97.5 88 18 98/62 95 03/07 2100 97.5 88 18 98 95 Intake & Output 03/08 1600 03/08 0800 03/08 0000 Intake Total 1250 800 360 Output Total Balance 1250 800 360 Intake, IV 800 700 300 Intake, Oral 450 100 60 Physical Exam General Appearance: Alert, Oriented X3, Cooperative, No Acute Distress Cardiovascular: Regular Rate, Normal S1, Normal S2, tachycardic Lungs: Clear to Auscultation, Normal Air Movement Abdomen: Normal Bowel Sounds, Soft, No Tenderness, No Masses Extremities: No Clubbing, No Cyanosis, No Edema, Normal Pulses Current Medications: Current Medications Sig/Rose Marie Start time Last Medication Dose Route Stop Time Status Admin Acetaminophen 650 MG Q6P PRN 03/07 0145 AC 03/08 PO 1816 Albuterol Sulfate 3 ML Q4P PRN 03/07 0800 AC 03/07 INH 0752 Aspirin Buffered 81 MG DAILY 03/07 09 AC 03/08 PO 0748 Azithromycin 500 MG DAILY 03/07 1800 AC 03/08 Sodium Chloride 250 ML IV 0740 Benzonatate 100 MG TID PRN 03/07 09 AC 03/08 PO 1651 Ceftriaxone Sodium 1,000 MG DAILY 03/07 1800 AC 03/08 IV 0740 Dextrose/Sodium 1,000 ML Q10H 03/07 1545 AC 03/08 Chloride IV 1738 Enoxaparin Sodium 40 MG DAILY 03/08 09 AC 03/08 SC 0748 Ezetimibe 10 MG DAILY 03/07 09 AC 03/08 PO 0748 Guaifenesin 600 MG Q12 03/08 2100 AC PO Guaifenesin 10 ML Q4P PRN 03/06 2345 AC PO Ibuprofen 600 MG TID 03/07 1400 AC 03/08 PO 0748 Omeprazole 40 MG DAILY AC 03/07 1300 AC 03/08 PO 0532 Potassium Chloride 40 MEQ ONCE ONE 03/08 1800 DC PO 03/08 1801 Last 24 Hrs of Lab/Michael Results Last 24 Hrs of Labs/Mics: Laboratory Tests 03/08/18 0600: IRVING Titer Pending, Anti-Nuclear Antibody Pending 03/08/18 0345: Anion Gap 12, Estimated GFR > 60, BUN/Creatinine Ratio 18.6, Total Bilirubin 0.3 , Direct Bilirubin 0.3, AST 27, ALT 41, Alkaline Phosphatase 172 H, Troponin I < 0.01, Total Protein 6.1 L, Albumin 2.9 L, Rheum Factor Semi-Quant 17.4 H 03/08/18 0316: Troponin I Cancelled 03/08/18 0136: Troponin I Cancelled Microbiology 03/08 1815 URINE ROUT: Urine Culture - COLB 03/08 1815 BLOOD: Blood Culture - COLB 03/08 1815 BLOOD: Blood Culture - COLB Assessment/Plan Assessment: 87 year old female with history of smoking, HTN, and HLD minimally productive cough, shortness of breath, chest pain and weakness for last 3 weeks. Community-acquired pneumonia: -Continue to respond to outpatient treatment -Supplemental oxygen as needed to keep oxygen saturation above 92% -TRC nebulization as needed -Mucinex for cough -Continue ceftriaxone and azithromycin -Follow blood cultures -Follow sputum cultures -Urine strep and Legionella antigen influenza all negative -Incentive spirometry -Chest physiotherapy Pleuritic chest pain: Negative troponins continue NSAIDs pericardial effusion on imaging ESR/CRP elevated Cardiology consulted, appreciate recommendations Check echocardiogram History of hypertension: -Continue her home medications History of hyperlipidemia: -Continue Lipitor heart healthy diet DVT ppx-Lovenox Full code Problem List: 1. Dehydration 2. Weakness Pain Ratin Pain Location: chest Pain Goal: Pain 4 or less Pain Plan: prn Tomorrow's Labs & Rationales: bep
[2018-03-08 14:18] VITALS: BP 112/70
--- NOTE | 2018-03-08 14:23 | PN- Att Addend ---
Attending Addendum Attending Brief Note Mrs. Mann was interviewed and examined. Her EMR was reviewed. She notes marked decrease in her chest pain. Tmax 98.9 P 91 RR 20 BP 104/62 telemetry short run of SVT overnight NAD BSE clear to A&P Regular rate and rhythm 2/6 CHOLO LLSB ESR 118 K+ 3.4 preliminary echo report showing slightly increased pericardial fluid Most likely pericarditis after a viral syndrome Heart rate and blood pressure stable post hydration Hypokalemia I would continue IV fluids and her ibuprofen at 600 mg orally every 8 hours Need to correct her potassium Continue on telemetry given her episode of arrhythmia Follow-up CBC in the a.m. along with her electrolytes.
--- NOTE | 2018-03-08 15:24 | PN- Cardiology ---
Subjective Subjective: The patient is feeling clinically better today. Less discomfort, less short of breath, less GI symptoms. Objective Vital Signs and I&Os Vital Signs Date Time Temp Pulse Resp B/P B/P Pulse O2 O2 Flow FiO2 Mean Ox Delivery Rate 03/08 1418 97.9 115 20 112/70 93 Nasal 3.0L Cannula 03/08 0847 92 Nasal 3.0L Cannula 03/08 0800 Nasal 4.0L Cannula 03/08 0700 97.7 91 20 104/62 92 03/08 0000 Nasal 4.0L Cannula 03/07 2300 97.5 88 18 98/62 95 03/07 2100 97.5 88 18 98/62 95 Intake & Output 03/08 1600 03/08 0800 03/08 0000 03/07 1600 03/07 0800 03/07 0000 Intake Total 1250 800 360 500 270 335 Output Total 350 Balance 1250 800 360 150 270 335 Intake, IV 800 700 300 100 150 275 Intake, Oral 450 100 60 400 120 60 Output, Urine 350 Patient 128 lb Weight Weight Bed scale Measurement Method Physical Exam: General Appearance: well developed/nourished, elderly female, alert, awake, oriented, blood pressure 100/60, pulses paradoxus 10 mmHg, heart rate 106 Head: normal HEENT: Normal Neck: supple, JVP normal, carotid upstrokes normal bilaterally, no masses or thyromegaly Respiratory: chest non-tender, clear to auscultation and percussion bilaterally Cardiovascular: regular rate/rhythm, normal S1, S2, 2/6 systolic murmur left mid to lower sternal border Abdomen: normal bowel sounds, soft, non-tender Extremities: normal inspection, no edema Vascular: Pulses are 2+ and equal bilaterally Neurologic: Grossly normal/nonfocal Current Medications: Current Medications Sig/Rose Marie Start time Last Medication Dose Route Stop Time Status Admin Acetaminophen 650 MG Q6P PRN 03/07 0145 AC 03/07 PO 0619 Albuterol Sulfate 3 ML Q4P PRN 03/07 0803/07 INH 0752 Aspirin Buffered 81 MG DAILY 03/07 09 AC 03/08 PO 0748 Azithromycin 500 MG DAILY 03/07 1800 03/08 Sodium Chloride 250 ML IV 0740 Benzonatate 100 MG TID PRN 03/07 09 AC PO Ceftriaxone Sodium 1,000 MG DAILY 03/07 1800 03/08 IV 0740 Dextrose/Sodium 1,000 ML Q10H 03/07 1545 AC 03/08 Chloride IV 0500 Enoxaparin Sodium 40 MG DAILY 03/08 0900 AC 03/08 SC 0748 Ezetimibe 10 MG DAILY 03/07 0900 AC 03/08 PO 0748 Guaifenesin 10 ML Q4P PRN 03/06 2345 AC PO Ibuprofen 600 MG TID 03/07 1400 AC 03/08 PO 0748 Omeprazole 40 MG DAILY AC 03/07 1300 AC 03/08 PO 0532 Results Last 48 Hrs of Labs/Mics: Laboratory Tests 03/08/18 0600: IRVING Titer Pending, Anti-Nuclear Antibody Pending 03/08/18 0345: Anion Gap 12, Estimated GFR > 60, BUN/Creatinine Ratio 18.6, Total Bilirubin 0.3 , Direct Bilirubin 0.3, AST 27, ALT 41, Alkaline Phosphatase 172 H, Troponin I < 0.01, Total Protein 6.1 L, Albumin 2.9 L, Rheum Factor Semi-Quant 17.4 H 03/08/18 0316: Troponin I Cancelled 03/08/18 0136: Troponin I Cancelled 03/07/18 1625: ESR Westergren 118 H 03/07/18 0806: Urinalysis LIGHT H, Urine Color BELINDA, Urine Clarity CLEAR, Urine pH 6.0, Ur Specific [place] 1.025, Urine Protein NEG, Urine Ketones NEG, Urine Nitrite NEG, Urine Bilirubin NEG, Urine Urobilinogen 0.2, Ur Leukocyte Esterase NEG, Ur Microscopic SEDIMENT EXAMINED, Urine RBC 1-3, Urine WBC 3-5 H, Ur Epithelial Cells OCCAS, Urine Bacteria FEW H, Hyaline Casts 10-15 H, Granular Casts 10-15 H, Urine Mucus FEW, Urine Hemoglobin TRACE-INTACT, Urine Glucose NEG 03/07/18 0805: Anion Gap 14, Estimated GFR > 60, BUN/Creatinine Ratio 17.1, Total Bilirubin 0.7 , Direct Bilirubin 0.6 H, AST 40 H, ALT 49, Alkaline Phosphatase 187 H, Troponin I < 0.01, Total Protein 6.1 L, Albumin 3.0 L, TSH 4.020, Free T4 2.31 H, PT 14.1 H, INR 1.29 H, APTT 28, D-Dimer High Sensitivty 3944 H, CBC w Diff NO MAN DIFF REQ, RBC 3.51 L, MCV 86.4, MCH 28.9, MCHC 33.5, RDW 14.8 H, MPV 7.2 L, Gran % 84.3 H, Lymphocytes % 9.1 L, Monocytes % 6.4, Eosinophils % 0.2, Basophils % 0, Absolute Granulocytes 12.3 H, Absolute Lymphocytes 1.3, Absolute Monocytes 0.9 H, Absolute Eosinophils 0, Absolute Basophils 0, Retic Count 2.51 H 03/06/18 2210: Total Bilirubin 0.7, Direct Bilirubin 0.7 H, AST 69 H, ALT 75 H, Alkaline Phosphatase 235 H, Lactate Dehydrogenase 599, Troponin I < 0.01, C-Reactive Prot, Quant > 9.0 H, [id number]-[id number] Pept 763 H, Total Protein 6.9, Albumin 3.5, Acetaminophen < 10.0 L Microbiology 03/07 806 URINE ROUT: Legionella Antigen - COMP 03/07 806 URINE ROUT: Streptococcus pneumoniae Antigen (M - COMP 03/06 1813 NASOPHARYN: Influenza Virus A & B Rapid Smear - COMP Assessment/Plan Assessment/Plan Assessment: 1. Pleuritic/positional chest discomfort with pericardial effusion noted on chest CT; probable pleural / pericarditis; mild leukocytosis-patient feels significantly better, though not at baseline, after IV fluid hydration and institution of nonsteroidal anti-inflammatory medications. 1 a. 2/6 to 3/6 systolic murmur, possible pericardial rub, possible mitral insufficiency 2. History of syncope with possible chest trauma in December 3. Hypertension 4. Hyperlipidemia 5. Mild hyponatremia 6. Elevated liver function tests-improving 7. Brief nonsustained SVT versus paroxysmal atrial fibrillation Recommendations: -Monitor on telemetry -IV fluid hydration at 100 cc/h -Start nonsteroidal anti-inflammatory agents as discussed -Echocardiogram shows mild aortic sclerosis, minimal mitral insufficiency, very small circumferential pericardial effusion, a small left pleural effusion, and mild to moderate tricuspid insufficiency with mild pulmonary hypertension. -Markedly elevated sed rate and CRP noted -In the absence of any overt infectious process, discontinue antibiotics -Hold diuretics -Follow-up labs in a.m. -Full cultures, including blood cultures to rule out occult issue such as endocarditis, etc. -Continue current management and supportive care for now. Out of bed as tolerated. Continue telemetry? Yes
[2018-03-08 22:42] VITALS: BP 116/74; BP 150/86
[2018-03-09 06:52] VITALS: BP 116/70
[2018-03-09 08:26] LABS: ABSOLUTE BASOPHIL COUNT 0 /CUMM (0.0-0.2); ABSOLUTE EOSINOPHIL COUNT 0.5 /CUMM (0.0-0.7); ABSOLUTE GRANULOCYTE CT 8.5 /CUMM (1.4-6.5); ABSOLUTE LYMPH COUNT 1.5 /CUMM (1.2-3.4); ABSOLUTE MONOCYTE COUNT 0.5 /CUMM (0.10-0.60); BASOPHIL % 0.4 % (0.0-2.0); EOSINOPHIL % 4.4 % (0-5); GRANULOCYTE % 77.4 % (42.2-75.2); HEMATOCRIT 29.5 % (37-47); MEAN CORPUSCULAR HGB 29.4 PG (27.0-31.0); MEAN CORPUSCULAR VOLUME 86.4 FL (81.0-99.0); MEAN PLATELET VOLUME 7.8 FL (7.4-10.4); PLATELET COUNT 561 /CUMM (130-400); RBC DISTRIBUTION WIDTH 14.8 % (11.5-14.5); RED BLOOD CELL CT 3.41 /CUMM (4.20-5.40); WHITE BLOOD CELL COUNT 10.9 /CUMM (4.8-10.8)
--- NOTE | 2018-03-09 08:40 | PN- Housestaff ---
Subjective Follow-up For: chest pain cough weakness Complaints: no complaints Tele-Events Since Last Visit: Normal sinus rhythm 80-92 a short run of SVT overnight Subjective: Patient seen and examined. She states that she did not sleep well last night. Patient denies any chest pain during interview. She is on 4 L of oxygen, does not require any oxygen at home, no chronic lung issues. Patient had a MAXIMUM TEMPERATURE yesterday of 100.7. Vitals overnight were stable other than the increased oxygen requirement. Review of Systems Constitutional: Reports: no symptoms. Cardiovascular: Reports: no symptoms. Respiratory: Reports: cough. Gastrointestinal: Reports: no symptoms. Genitourinary: Reports: no symptoms. Musculoskeletal: Reports: no symptoms. Skin: Reports: no symptoms. Objective Last 24 Hrs of Vital Signs/I&O Vital Signs Date Time Temp Pulse Resp B/P B/P Pulse O2 O2 Flow FiO2 Mean Ox Delivery Rate 03/09 1450 97.8 94 18 110/60 93 Nasal 2.0L Cannula 03/09 1421 94 Nasal 4.0L Cannula 03/09 0850 95 Nasal 4.0L Cannula 03/09 0652 97.7 100 28 116/70 95 Nasal 4.0L Cannula 03/09 0000 Nasal 4.0L Cannula 03/08 2242 98.3 99 28 116/74 95 03/08 2012 98.9 03/08 1915 100.7 03/08 1913 100.7 03/08 1911 100.7 03/08 1820 100.7 03/08 1816 100.7 03/08 1600 93 Nasal 4.0L Cannula Intake & Output 03/09 1600 03/09 0800 03/09 0000 Intake Total 930 272 1386 Output Total 600 300 Balance 100 850 880 Intake, IV 300 800 600 Intake, Oral 400 50 580 Output, Urine 600 300 Patient 137 lb Weight Physical Exam General Appearance: Alert, Oriented X3, Cooperative, No Acute Distress Skin: No Rashes, No Breakdown, No Significant Lesion Skin Temp/Moisture Exam: Warm/Dry Sepsis Skin Exam (color): Normal for Ethnicity HEENT: Atraumatic, PERRLA, EOMI, Mucous Membr. moist/pink Neck: Supple, No JVD Cardiovascular: Regular Rate, Normal S1, Normal S2, No Murmurs Lungs: lower lung friction rub appreciated Abdomen: Normal Bowel Sounds, Soft, No Tenderness Neurological: Normal Speech Extremities: No Clubbing, No Cyanosis, No Edema Vascular: Normal Pulses, Pulses Symmetrical Current Medications: Current Medications Sig/Rose Marie Start time Last Medication Dose Route Stop Time Status Admin Acetaminophen 650 MG .STK-MED ONE 03/09 0616 DC PO 03/09 0617 Acetaminophen 650 MG .STK-MED ONE 03/08 1814 DC PO 03/08 1815 Acetaminophen 650 MG Q6P PRN 03/07 0145 DC 03/09 PO 0616 Albuterol Sulfate 3 ML Q4P PRN 03/07 0800 AC 03/07 INH 0752 Aspirin Buffered 81 MG DAILY 03/07 0900 DC 03/09 PO 0802 Azithromycin 500 MG DAILY 03/07 1800 AC 03/09 Sodium Chloride 250 ML IV 0801 Benzonatate 100 MG TID PRN 03/07 0900 AC 03/08 PO 1651 Ceftriaxone Sodium 1,000 MG DAILY 03/07 1800 AC 03/09 IV 0802 Dextrose/Sodium 1,000 ML Q10H 03/07 1545 DC 03/09 Chloride IV 0353 Enoxaparin Sodium 40 MG DAILY 03/08 0900 AC 03/09 SC 0801 Ezetimibe 10 MG DAILY 03/07 0900 AC 03/09 PO 0801 Guaifenesin 600 MG Q12 03/08 2100 AC 03/09 PO 0802 Guaifenesin 10 ML Q4P PRN 03/06 2345 AC PO Ibuprofen 600 MG TID 03/07 1400 AC 03/09 PO 1309 Melatonin 5 MG AT BEDTIME 03/08 2100 AC 03/08 PO 2034 Omeprazole 40 MG DAILY AC 03/07 1300 AC 03/09 PO 0613 Potassium Chloride 40 MEQ ONCE ONE 03/08 1800 DC 03/08 PO 03/08 1801 1902 Ramelteon 8 MG ONCE ONE 03/08 2330 DC 03/08 PO 03/08 2331 2332 Last 24 Hrs of Lab/Michael Results Last 24 Hrs of Labs/Mics: Laboratory Tests 03/09/18 1350: ANCA Pending 03/09/18 1317: HIV 1&2 Ab Western Blot Cancelled 03/09/18 0630: Anion Gap 11, Estimated GFR > 60, BUN/Creatinine Ratio 6.7 L, CBC w Diff NO MAN DIFF REQ, RBC 3.41 L, MCV 86.4, MCH 29.4, MCHC 34.0, RDW 14.8 H, MPV 7.8, Gran % 77.4 H, Lymphocytes % 13.5 L, Monocytes % 4.3, Eosinophils % 4.4, Basophils % 0.4, Absolute Granulocytes 8.5 H, Absolute Lymphocytes 1.5, Absolute Monocytes 0.5, Absolute Eosinophils 0.5, Absolute Basophils 0, Hepatitis A IgM Ab NONREACTIVE, Hep Bs Antigen NONREACTIVE, Hep B Core IgM Ab Conf NONREACTIVE, Hepatitis C Antibody NONREACTIVE 03/09/18 0600: Cyclic Citrull Peptide Pending 03/08/18 2000: Urine Color YEL, Urine Clarity CLEAR, Urine pH 6.0, Ur Specific [place] 1.020, Urine Protein NEG, Urine Ketones NEG, Urine Nitrite NEG, Urine Bilirubin NEG, Urine Urobilinogen 0.2, Ur Leukocyte Esterase NEG, Ur Microscopic SEDIMENT EXAMINED, Urine RBC RARE, Urine WBC RARE, Ur Epithelial Cells RARE, Urine Bacteria RARE H, Urine Hemoglobin SMALL H, Urine Glucose NEG Microbiology 03/08 2000 URINE ROUT: Urine Culture - RES 03/08 1835 BLOOD: Blood Culture - RES 03/08 182 BLOOD: Blood Culture - RES Assessment/Plan Assessment: 87 year old female with history of smoking, HTN, and HLD minimally productive cough, shortness of breath, chest pain and weakness for last 3 weeks. Of note, the patient and her family states that since she fell in December, a drop attack with loss of consciousness, things have not been the same. Her admission from December was examined and no etiology was found. -Chest pain and cough: Could be secondary to pneumonia, no evidence on CTA but temperature 100.7 yesterday. The patient is currently on azithromycin and ceftriaxone. CTA ruled out pulmonary embolism. A small to moderate pericardial effusion that was new compared to her December reading was seen and could potentially be pericarditis. Today her ESR is found to be elevated at 120, CRP as well. RF was found to be positive. Also interestingly, patient does not use oxygen outpatient but has required 4 L here. No chest x-ray was done on admission but CTA did not show any significant pathology other than a moderate pericardial effusion and small pleural effusions. On physical exam, there was a cardiac rub noted by previous examiners. We did appreciate a pleural rub in the lower lung bowen bilaterally. Patient did have troponins and EKGs that were normal. -Continue to dose antibiotics ceftriaxone 1 g daily and azithromycin and ibuprofen 600 mg 3 times a day for potential pericarditis with a PPI 40 milligrams by mouth daily for gastric protection -Follow up IRVING -Repeat chest x-ray, depending on what that shows, ABG. -TRC nebulization as needed -Mucinex for cough -Follow blood cultures -Follow sputum cultures -Urine strep and Legionella antigen influenza all negative -Incentive spirometry -Chest physiotherapy -Cardiology consulted, appreciate recommendations Echocardiogram results: 1. Normal EF of 70%. 2. Mild tricuspid regurgitation. 3. Trace aortic regurgitation. 4. Mild pulmonary hypertension. 5. Trace pericardial effusion. -Hold diuretics and blood pressure medications as patient is between low to normal blood pressures. History of hyperlipidemia: -Continue Lipitor -Elevated liver function tests: Right upper quadrant ultrasound was normal status post cholecystectomy -Monitor heart healthy diet DVT ppx-Lovenox Full code Problem List: 1. Weakness 2. Pericardial effusion Pain Ratin Pain Location: na Pain Goal: Remain pain free Pain Plan: prn Tomorrow's Labs & Rationales: cbc bep
--- NOTE | 2018-03-09 09:13 | ECHOCARDIOGRAM REPORT ---
DORIS RESENDEZ Age: 87 : 1930 Gender: F Exam Date: 03/08/2018 10:20 Exam Location: [address] Ht (in): 62 Wt (lb): 128 BSA: 1.60 BP: 104 / 62 Ordering Physician: Reza Nielsen MD Referring Physician: Brody Berger MD, PhD Technologist: Vanessa Valentine [facility] Room Number: [id number] Indications: PERICARDIAL EFFUSION Rhythm: Sinus Technical Quality: good FINDINGS Left Ventricle Normal left ventricular size, wall thickness and systolic function with no obvious regional wall motion abnormalities. Normal left ventricular diastolic filling pattern for age. The ejection fraction is visually estimated at 70%. Right Ventricle The right ventricle is normal in size and function. Right Atrium The right atrium is normal in size. Left Atrium The left atrium is normal in size. The interatrial septum is intact. Mitral Valve The mitral valve is normal in structure and function. There is no mitral regurgitation. Aortic Valve Structurally normal aortic valve without significant sclerosis or stenosis. There is trace aortic regurgitation. Tricuspid Valve The tricuspid valve is normal in structure and function. There is mild tricuspid regurgitation. Pulmonary artery systolic pressure is mildly elevated. Pulmonic Valve Structurally normal pulmonic valve. There is no pulmonic regurgitation. Pericardium Normal pericardium with trace effusion. No pleural effusion. Great Vessels Normal aortic root dimension. The aortic arch and great vessels are well seen and are normal. CONCLUSIONS 1. Normal EF of 70%. 2. Mild tricuspid regurgitation. 3. Trace aortic regurgitation. 4. Mild pulmonary hypertension. 5. Trace pericardial effusion. Brody Berger M.D. (Electronically Signed) Final Date: 09 March 2018 09:13 MEASUREMENTS (Male / Female) Normal Values 2D ECHO LV Diastolic Diameter PLAX 3.8 cm 4.2 - 5.9 / 3.9 - 5.3 cm LV Systolic Diameter PLAX 2.4 cm 2.1 - 4.0 cm LV Fractional Shortening PLAX 36.8 % 25 - 46 % LV Ejection Fraction 2D Teich 67.5 % IVS Diastolic Thickness 1.1 cm LVPW Diastolic Thickness 1.0 cm LV Relative Wall Thickness 0.6 RV Internal Dim ED PLAX 2.1 cm 1.9 - 3.8 cm LVOT Diameter 1.8 cm Aortic Root Diameter 2.8 cm LA Systolic Diameter LX 3.3 cm 3.0 - 4.0 / 2.7 - 3.8 cm LA Volume 28.0 cm 18 - 58 / 22 - 52 cm Ascending Aorta Diameter 3.0 cm DOPPLER AV Peak Velocity 128.0 cm/s AV Peak Gradient 6.6 mmHg AV Mean Velocity 84.2 cm/s AV Mean Gradient 3.0 mmHg AV Velocity Time Integral 22.1 cm LVOT Peak Velocity 103.0 cm/s LVOT Peak Gradient 4.2 mmHg LVOT Mean Velocity 66.9 cm/s LVOT Mean Gradient 2.0 mmHg LVOT Velocity Time Integral 18.3 cm LVOT Stroke Volume 46.6 cm AV Area Cont Eq vti 2.1 cm AV Area Cont Eq pk 2.0 cm MV Peak Velocity 115.0 cm/s MV Peak Gradient 5.3 mmHg MV Mean Velocity 73.1 cm/s MV Mean Gradient 3.0 mmHg Mitral E Point Velocity 87.4 cm/s Mitral A Point Velocity 93.8 cm/s Mitral E to A Ratio 0.9 MV PHT Velocity 112.0 cm/s MV Deceleration Edgar 1167.0 cm/s MV Pressure Half Time 28.8 ms MV Area PHT 7.6 cm MV Deceleration Time 206.0 ms TR Peak Velocity 307.0 cm/s TR Peak Gradient 37.7 mmHg Right Atrial Pressure 5.0 mmHg Pulmonary Artery Systolic Pressu 42.7 mmHg Right Ventricular Systolic Press 42.7 mmHg PV Peak Velocity 85.1 cm/s PV Peak Gradient 2.9 mmHg PV Mean Velocity 49.0 cm/s PV Mean Gradient 1.0 mmHg PV Velocity Time Integral 10.4 cm LV E' Lateral Velocity 9.5 cm/s Mitral E to LV E' Lateral Ratio 9.2 LV E' Septal Velocity 9.2 cm/s Mitral E to LV E' Septal Ratio 9.5
--- NOTE | 2018-03-09 13:35 | PN- Att Addend ---
Attending Addendum Attending Brief Note Events over the weekend noted per patient on telemetry patient's at the bedside. Patient feels a little better was still weak, still wearing the oxygen. Temp max 100.7. Down this morning. No new changes on physical chest x-ray and echocardiogram noted. Will follow cardiology's recommendations. To get out of bed the PT evaluation. Intake & Output 03/09 040 Intake Total 850 1180 2050 360 770 335 Output Total 300 350 Balance 566 958 4540 360 420 335 Intake, IV 496 145 7457 300 250 275 Intake, Oral 50 580 550 60 520 60 Output, Urine 300 350 Patient 137 lb 128 lb Weight Weight Bed scale Measurement Method Laboratory Tests 03/09/18 1317: HIV 1&2 Ab Western Blot Cancelled 03/09/18 0630: Anion Gap 11, Estimated GFR > 60, BUN/Creatinine Ratio 6.7 L, CBC w Diff NO MAN DIFF REQ, RBC 3.41 L, MCV 86.4, MCH 29.4, MCHC 34.0, RDW 14.8 H, MPV 7.8, Gran % 77.4 H, Lymphocytes % 13.5 L, Monocytes % 4.3, Eosinophils % 4.4, Basophils % 0.4, Absolute Granulocytes 8.5 H, Absolute Lymphocytes 1.5, Absolute Monocytes 0.5, Absolute Eosinophils 0.5, Absolute Basophils 0, Hepatitis A IgM Ab Pending, Hep Bs Antigen Pending, Hep B Core IgM Ab Conf Pending, Hepatitis C Antibody Pending 03/09/18 06: Cyclic Citrull Peptide Pending 03/08/18 2000: Urine Color YEL, Urine Clarity CLEAR, Urine pH 6.0, Ur Specific [place] 1.020, Urine Protein NEG, Urine Ketones NEG, Urine Nitrite NEG, Urine Bilirubin NEG, Urine Urobilinogen 0.2, Ur Leukocyte Esterase NEG, Ur Microscopic SEDIMENT EXAMINED, Urine RBC RARE, Urine WBC RARE, Ur Epithelial Cells RARE, Urine Bacteria RARE H, Urine Hemoglobin SMALL H, Urine Glucose NEG 03/08/18 0600: IRVING Titer ND, Anti-Nuclear Antibody NEG 1:40 IFA ASSAY 03/08/18 0345: Anion Gap 12, Estimated GFR > 60, BUN/Creatinine Ratio 18.6, Total Bilirubin 0.3 , Direct Bilirubin 0.3, AST 27, ALT 41, Alkaline Phosphatase 172 H, Troponin I < 0.01, Total Protein 6.1 L, Albumin 2.9 L, Rheum Factor Semi-Quant 17.4 H 03/08/18 0316: Troponin I Cancelled 03/08/18 0136: Troponin I Cancelled 03/07/18 1625: ESR Westergren 118 H 03/07/18 0806: Urinalysis LIGHT H, Urine Color BELINDA, Urine Clarity CLEAR, Urine pH 6.0, Ur Specific [place] 1.025, Urine Protein NEG, Urine Ketones NEG, Urine Nitrite NEG, Urine Bilirubin NEG, Urine Urobilinogen 0.2, Ur Leukocyte Esterase NEG, Ur Microscopic SEDIMENT EXAMINED, Urine RBC 1-3, Urine WBC 3-5 H, Ur Epithelial Cells OCCAS, Urine Bacteria FEW H, Hyaline Casts 10-15 H, Granular Casts 10-15 H, Urine Mucus FEW, Urine Hemoglobin TRACE-INTACT, Urine Glucose NEG 03/07/18 0805: Anion Gap 14, Estimated GFR > 60, BUN/Creatinine Ratio 17.1, Total Bilirubin 0.7 , Direct Bilirubin 0.6 H, AST 40 H, ALT 49, Alkaline Phosphatase 187 H, Troponin I < 0.01, Total Protein 6.1 L, Albumin 3.0 L, TSH 4.020, Free T4 2.31 H, PT 14.1 H, INR 1.29 H, APTT 28, D-Dimer High Sensitivty 3944 H, CBC w Diff NO MAN DIFF REQ, RBC 3.51 L, MCV 86.4, MCH 28.9, MCHC 33.5, RDW 14.8 H, MPV 7.2 L, Gran % 84.3 H, Lymphocytes % 9.1 L, Monocytes % 6.4, Eosinophils % 0.2, Basophils % 0, Absolute Granulocytes 12.3 H, Absolute Lymphocytes 1.3, Absolute Monocytes 0.9 H, Absolute Eosinophils 0, Absolute Basophils 0, Retic Count 2.51 H 03/06/18 2210: Total Bilirubin 0.7, Direct Bilirubin 0.7 H, AST 69 H, ALT 75 H, Alkaline Phosphatase 235 H, Lactate Dehydrogenase 599, Troponin I < 0.01, C-Reactive Prot, Quant > 9.0 H, [id number]-Mjjjywhfhiu Pept 763 H, Total Protein 6.9, Albumin 3.5, Acetaminophen < 10.0 L Microbiology 03/08 2000 URINE ROUT: Urine Culture - RES 03/08 1835 BLOOD: Blood Culture - RES 03/08 1828 BLOOD: Blood Culture - RES 03/07 1327 UPPER RESP: Surveillance Culture - CAN Cancelled: SPECIMEN NOT RECEIVED IN LABORATORY 03/07 1327 GI: Surveillance Culture - CAN Cancelled: SPECIMEN NOT RECEIVED IN LABORATORY 03/07 0806 URINE ROUT: Legionella Antigen - COMP 03/07 0806 URINE ROUT: Streptococcus pneumoniae Antigen (M - COMP 03/06 2210 BLOOD: Blood Culture - RES 03/06 2210 BLOOD: Blood Culture - RES 03/06 1813 NASOPHARYN: Influenza Virus A & B Rapid Smear - COMP 03/06 1745 LOWER RESP: Respiratory Culture - CAN Cancelled: SPECIMEN NOT RECEIVED IN LABORATORY 03/06 1745 LOWER RESP: Gram Stain - CAN Cancelled: SPECIMEN NOT RECEIVED IN LABORATORY Microbiology 03/08 2000 URINE ROUT: Urine Culture - RES 03/08 1835 BLOOD: Blood Culture - RES 03/08 1828 BLOOD: Blood Culture - RES 03/07 1327 UPPER RESP: Surveillance Culture - CAN Cancelled: SPECIMEN NOT RECEIVED IN LABORATORY 03/07 1327 GI: Surveillance Culture - CAN Cancelled: SPECIMEN NOT RECEIVED IN LABORATORY 03/07 0806 URINE ROUT: Legionella Antigen - COMP 03/07 0806 URINE ROUT: Streptococcus pneumoniae Antigen (M - COMP 03/06 2210 BLOOD: Blood Culture - RES 03/06 2210 BLOOD: Blood Culture - RES 03/06 1813 NASOPHARYN: Influenza Virus A & B Rapid Smear - COMP 03/06 1745 LOWER RESP: Respiratory Culture - CAN Cancelled: SPECIMEN NOT RECEIVED IN LABORATORY 03/06 1745 LOWER RESP: Gram Stain - CAN Cancelled: SPECIMEN NOT RECEIVED IN LABORATORY Vital Signs Date Time Temp Pulse Resp B/P B/P Pulse O2 O2 Flow FiO2 Mean Ox Delivery Rate 03/09 0850 95 Nasal 4.0L Cannula 03/09 0652 97.7 100 28 116/70 95 Nasal 4.0L Cannula 03/09 0000 Nasal 4.0L Cannula 03/08 2242 98.3 99 28 116/74 95 03/08 2012 98.9 03/08 1915 100.7 03/08 1913 100.7 03/08 1911 100.7 03/08 1820 100.7 03/08 181 100.7 03/08 1600 93 Nasal 4.0L Cannula 03/08 1418 97.9 115 20 112/70 93 Nasal 3.0L Cannula
[2018-03-09 14:50] VITALS: BP 110/60
--- NOTE | 2018-03-09 15:51 | PN- Cardiology ---
Subjective Subjective: * Patient feels improved. * sinus rhythm * minimal to trace pericardial effusion with normal EF of her echo. * increased free T4 Objective Vital Signs and I&Os Vital Signs Date Time Temp Pulse Resp B/P B/P Pulse O2 O2 Flow FiO2 Mean Ox Delivery Rate 03/09 1450 97.8 94 18 110/60 93 Nasal 2.0L Cannula 03/09 1421 94 Nasal 4.0L Cannula 03/09 0850 95 Nasal 4.0L Cannula 03/09 0652 97.7 100 28 116/70 95 Nasal 4.0L Cannula 03/09 0000 Nasal 4.0L Cannula 03/08 2242 98.3 99 28 116/74 95 03/08 2012 98.9 03/08 1915 100.7 03/08 1913 100.7 03/08 1911 100.7 03/08 1820 100.7 03/08 1816 100.7 03/08 1600 93 Nasal 4.0L Cannula Intake & Output 03/09 1600 03/09 0800 03/09 0000 03/08 1600 03/08 0800 03/08 0000 Intake Total 478 874 6488 1250 800 360 Output Total 600 300 Balance 100 966 186 4415 800 360 Intake, IV 300 800 600 800 700 300 Intake, Oral 400 50 580 450 100 60 Output, Urine 600 300 Patient 137 lb Weight Physical Exam: General: WD/WN female in NAD; alert and oriented x 3 HEENT: NC/AT, PERRL, EOMI Neck: no JVD, no carotid bruit Heart: RRR with 2/6 systolic murmur at the apex Lungs: no crackles or wheezing Abdomen: soft, NT, +ve bowel sounds Extremties: no edema Assessment/Plan Assessment/Plan * This patient has chest discofort that is only in the setting of a cough. There is no exertional or positional chest discomfort. She does have a cough with increased WBC count and a fever. I suspect she has a bronchitis with muscle soreness from coughing. Her pericardial effusion is trace. In considertion of all the above, my suspicion of pericarditis is low. It may be that her pericardial effusion has decreased since the CT due to NSAIDS. It is reasonable to continue NSAIDS for three weeks but I would continue to treat with antibiotics for a bronchitic exacerbation of COPD which is my highest suspicion. Continue telemetry? Yes
[2018-03-09 18:34] VITALS: BP 104/76
[2018-03-09 22:11] VITALS: BP 124/88
--- NOTE | 2018-03-09 22:55 | RADIOLOGY REPORT ---
EXAMINATION: XR CHEST CLINICAL INFORMATION: Increased oxygen requirement. Presumptive diagnosis of question pleural effusion. COMPARISON: Several prior chest x-rays, most recent of which is dated 03/05/2018. CTA of the chest dated 03/07/2018. TECHNIQUE: AP sitting and lateral views of the chest were obtained. FINDINGS: The cardiomediastinal silhouette is within normal limits in size. Calcification of the aortic arch is seen. Small bilateral pleural effusions are seen with associated bibasilar opacities, unchanged from recent CT scan and likely due to subsegmental atelectasis. Superimposed or evolving pneumonia cannot be excluded. There is underlying obstructive lung disease. Diffuse osteopenia is seen. Upper abdominal jasbir in place, consistent with prior cholecystectomy. IMPRESSION: Small bilateral pleural effusions and associated bibasilar opacities are unchanged from CTA of the chest from 03/07/2018, but progressive compared to chest x-ray from 03/05/2018.
[2018-03-10 07:05] VITALS: BP 124/70
[2018-03-10 07:57] LABS: ABSOLUTE BASOPHIL COUNT 0 /CUMM (0.0-0.2); ABSOLUTE EOSINOPHIL COUNT 0.6 /CUMM (0.0-0.7); ABSOLUTE GRANULOCYTE CT 6.7 /CUMM (1.4-6.5); ABSOLUTE LYMPH COUNT 1.2 /CUMM (1.2-3.4); ABSOLUTE MONOCYTE COUNT 0.4 /CUMM (0.10-0.60); BASOPHIL % 0.4 % (0.0-2.0); EOSINOPHIL % 6.6 % (0-5); GRANULOCYTE % 74.4 % (42.2-75.2); MEAN CORPUSCULAR HGB 28.5 PG (27.0-31.0); MEAN CORPUSCULAR HGB CONC 32.6 G/DL (33.0-37.0); MEAN CORPUSCULAR VOLUME 87.5 FL (81.0-99.0); MEAN PLATELET VOLUME 7.1 FL (7.4-10.4); PLATELET COUNT 685 /CUMM (130-400); RBC DISTRIBUTION WIDTH 14.3 % (11.5-14.5); RED BLOOD CELL CT 3.43 /CUMM (4.20-5.40)
--- NOTE | 2018-03-10 08:03 | PN- Housestaff ---
Subjective Follow-up For: ?pericarditis bronchitis Complaints: no complaints Tele-Events Since Last Visit: nsr 77-101 first degree AVB Subjective: Patient reports that she slept well last night. No complaints, denies chest pain or shortness of breath. No headache, in good spirits. Review of Systems Constitutional: Reports: no symptoms. EENTM: Reports: no symptoms. Cardiovascular: Reports: no symptoms. Respiratory: Reports: no symptoms. Gastrointestinal: Reports: no symptoms. Genitourinary: Reports: no symptoms. Musculoskeletal: Reports: no symptoms. Skin: Reports: no symptoms. Neurological/Psychological: Reports: no symptoms. Objective Last 24 Hrs of Vital Signs/I&O Vital Signs Date Time Temp Pulse Resp B/P B/P Pulse O2 O2 Flow FiO2 Mean Ox Delivery Rate 03/10 1411 97.7 103 20 122/60 93 Room Air 03/10 1342 92 Room Air 03/10 1338 92 Room Air 03/10 1325 100 126/70 03/10 0705 101 16 124/70 94 Nasal 2.0L Cannula 03/09 2211 98.5 102 22 124/88 93 03/09 2044 Nasal 1.0L Cannula 03/09 1834 98.8 80 16 104/76 97 03/09 1604 93 Nasal 2.0L Cannula Intake & Output 03/10 1600 03/10 0800 03/10 0000 Intake Total 300 280 Output Total Balance 300 280 Intake, Oral 300 280 Number 1 Bowel Movements Patient 131 lb Weight Physical Exam General Appearance: Alert, Oriented X3, Cooperative, No Acute Distress Skin: No Rashes, No Breakdown, No Significant Lesion Skin Temp/Moisture Exam: Warm/Dry Sepsis Skin Exam (color): Normal for Ethnicity Neck: Supple, No JVD Cardiovascular: Regular Rate, Normal S1, Normal S2, No Murmurs, no rubs appreciated Lungs: Clear to Auscultation, Normal Air Movement Abdomen: Normal Bowel Sounds, Soft, No Tenderness Neurological: Normal Speech Current Medications: Current Medications Sig/Rose Marie Start time Last Medication Dose Route Stop Time Status Admin Acetaminophen 650 MG ONCE ONE 03/10 1215 DC 03/10 PO 03/10 1216 1209 Acetaminophen 325 MG ONCE ONE 03/10 0630 DC 03/10 PO 03/10 0631 0630 Albuterol Sulfate 3 ML Q4P PRN 03/07 0800 DC 03/07 INH 0752 Azithromycin 500 MG DAILY 03/11 900 CAN Sodium Chloride 250 ML IV Azithromycin 500 MG DAILY 03/07 1800 DC 03/10 Sodium Chloride 250 ML IV 0802 Benzonatate 100 MG TID PRN 03/07 0900 AC 03/09 PO 203 Ceftriaxone Sodium 1,000 MG DAILY 03/11 0900 CAN IV Ceftriaxone Sodium 1,000 MG DAILY 03/07 1800 DC 03/10 IV 0802 Enoxaparin Sodium 40 MG DAILY 03/08 0900 AC 03/10 SC 0802 Ezetimibe 10 MG DAILY 03/07 0900 AC 03/10 PO 0802 Guaifenesin 600 MG Q12 03/08 2100 AC 03/10 PO 0802 Guaifenesin 10 ML Q4P PRN 03/06 2345 AC PO Ibuprofen 600 MG TID 03/07 1400 AC 03/10 PO 1322 Melatonin 10 MG AT BEDTIME 03/09 2100 AC 03/09 PO 203 Metoprolol Tartrate 12.5 MG BID 03/10 1217 AC 03/10 PO 1325 Omeprazole 40 MG DAILY AC 03/07 1300 AC 03/10 PO 0552 Last 24 Hrs of Lab/Michael Results Last 24 Hrs of Labs/Mics: Laboratory Tests 03/10/1830: Anion Gap 11, Estimated GFR > 60, BUN/Creatinine Ratio 10.0, CBC w Diff NO MAN DIFF REQ, RBC 3.43 L, MCV 87.5, MCH 28.5, MCHC 32.6 L, RDW 14.3, MPV 7.1 L, Gran % 74.4, Lymphocytes % 13.7 L, Monocytes % 4.9, Eosinophils % 6.6 H, Basophils % 0.4, Absolute Granulocytes 6.7 H, Absolute Lymphocytes 1.2, Absolute Monocytes 0.4, Absolute Eosinophils 0.6, Absolute Basophils 0 Assessment/Plan Assessment: 87 year old female with history of smoking, HTN, and HLD minimally productive cough, shortness of breath, chest pain and weakness for last 3 weeks. Of note, the patient and her family states that since she fell in December, a drop attack with loss of consciousness, things have not been the same. Her admission from December was examined and no etiology was found. -Chest pain and cough: Could be secondary to pneumonia, no evidence on CTA but temperature Tmax was 100.7 two days back. The patient is currently on azithromycin and ceftriaxone for potential pneumonia. CTA ruled out pulmonary embolism. A small to moderate pericardial effusion that was new compared to her December reading was seen and could potentially be pericarditis. Today her ESR is found to be elevated at 120, CRP as well. RF was found to be positive. Also interestingly, patient does not use oxygen outpatient but has required 4 L here. No chest x-ray was done on admission but CTA did not show any significant pathology other than a moderate pericardial effusion and small pleural effusions. On physical exam, there was a cardiac rub noted by previous examiners, not noted today. We did appreciate a pleural rub in the lower lung bowen bilaterally yesterday as well but did not notice this today. Patient did have troponins and EKGs that were normal. -Continue to dose antibiotics ceftriaxone 1 g daily and azithromycin for one more day for potential pneumonia (may be bronchitis) and ibuprofen 600 mg 3 times a day for total three weeks for potential pericarditis with a PPI 40 milligrams by mouth daily for gastric protection -IRVING negative, follow up ANCA -Chest x-ray shows no change from CTA -TRC nebulization as needed -Mucinex for cough -Follow blood cultures -Follow sputum cultures -Urine strep and Legionella antigen influenza all negative -Incentive spirometry -Chest physiotherapy -Cardiology consulted, appreciate recommendations Echocardiogram results: 1. Normal EF of 70%. 2. Mild tricuspid regurgitation. 3. Trace aortic regurgitation. 4. Mild pulmonary hypertension. 5. Trace pericardial effusion. -Hold diuretics and blood pressure medications as patient is between low to normal blood pressures. History of hyperlipidemia: -Continue Lipitor -Elevated liver function tests: Right upper quadrant ultrasound was normal status post cholecystectomy -Monitor heart healthy diet DVT ppx-Lovenox Full code Problem List: 1. Pericardial effusion 2. Left lower lobe pneumonia 3. Bronchitis Pain Ratin Pain Location: na Pain Goal: Remain pain free Pain Plan: na Tomorrow's Labs & Rationales: cbc
--- NOTE | 2018-03-10 11:43 | Patient Discharge Instructions ---
Discharge Instructions General Discharge Information You were seen/treated for: 1. possible pericarditis 2. bronchitis You had these procedures: echocardiogram Special Instructions: 1. please follow up with your PCP in one week and discuss follow up testing for elevated rheumatic factor. Follow up ANCA level. 2. please follow up with your student finance specialist in one week 3. please take the full course of ibuprofen 600mg three times daily until the night of February 26. 4. please take with the omeprazole for gastric protection. Diet Continue normal diet: Yes Activity Full Activity/No Limits: Yes (as tolerated) Acute Coronary Syndrome Inclusion Criteria At DC or during hospital stay patient has or had the following: ACS DIAGNOSIS No Discharge Core Measures Meds if any: Prescribed or Continued at Discharge Meds if any: NOT Prescribed or Continued at Discharge Congestive Heart Failure Inclusion Criteria At DC or during hospital stay patient has or had the following: CHF DIAGNOSIS No Discharge Core Measures Meds if any: Prescribed or Continued at Discharge Meds if any: NOT Prescribed or Continued at Discharge Cerebrovascular accident Inclusion Criteria At DC or during hospital stay patient has or had the following: CVA/TIA Diagnosis No Discharge Core Measures Meds if any: Prescribed or Continued at Discharge Meds if any: NOT Prescribed or Continued at Discharge Venous thromboembolism Inclusion Criteria VTE Diagnosis No VTE Type NONE VTE Confirmed by (Test) NONE Discharge Core Measures - Per Current guidelines, there needs to be overlap - treatment for the first 5 days of Warfarin therapy. - If discharged on Warfarin prior to 5 days of - overlap therapy, the patient will need to be - assessed for post discharge needs including - *Post discharge parental anticoagulation - *Warfarin and/or parental anticoagulation education - *Follow up date to check INR post discharge At least 5 days overlap therapy as Inpatient No Meds if any: Prescribed or Continued at Discharge Note: Overlap Therapy is Warfarin and Anticoagulant Meds if any: NOT Prescribed or Continued at Discharge
--- NOTE | 2018-03-10 12:14 | PN- Cardiology ---
Subjective Subjective: * No chest discomfort, shortness of breath or palpitations. She does complain of a dry cough and fatigue. * sinus tachycardia * normalized WBC count Objective Vital Signs and I&Os Vital Signs Date Time Temp Pulse Resp B/P B/P Pulse O2 O2 Flow FiO2 Mean Ox Delivery Rate 03/10 0705 101 16 124/70 94 Nasal 2.0L Cannula 03/09 2211 98.5 102 22 124/88 93 03/09 2044 Nasal 1.0L Cannula 03/09 1834 98.8 80 16 104/76 97 03/09 1604 93 Nasal 2.0L Cannula 03/09 1450 97.8 94 18 110/60 93 Nasal 2.0L Cannula 03/09 1421 94 Nasal 4.0L Cannula Intake & Output 03/10 0803/10 0000 03/09 1600 03/09 0800 03/09 0000 Intake Total 300 280 974 668 6486 Output Total 600 300 Balance 300 280 100 850 880 Intake, IV 300 800 600 Intake, Oral 300 280 400 50 580 Number 1 Bowel Movements Output, Urine 600 300 Patient 131 lb 137 lb Weight Physical Exam: General: WD/WN female in NAD; alert and oriented x 3 HEENT: NC/AT, PERRL, EOMI Neck: no JVD, no carotid bruit Heart: tachycardiac and regular with 2/6 systolic murmur at the apex Lungs: no crackles or wheezing Abdomen: soft, NT, +ve bowel sounds Extremties: no edema Assessment/Plan Assessment/Plan * This patient has chest discofort that is only in the setting of a cough. The chest discomfort has resolved although her cough persists. I suspect she has a bronchitis with muscle soreness from coughing which is improving but is not resolved. Her pericardial effusion is trace. Continue antibiotic therapy. Continue NSAIDS to complete three weeks. The patient does not need telemetry. * At baseline this patient was on Metoprolol which was stopped. As such, she has mild tachycardia. Would restart Metoprolol at 12.5mg BID. Stable for discharge from a cardiac standpoint. Follow up in the office in one week. Continue telemetry? No
--- NOTE | 2018-03-10 13:11 | PN- Att Addend ---
Attending Addendum Attending Brief Note Patient feeling better doesn't have a headache her collar is improved Vital signs are stable no fever and no major changes on physical White count 9000, BUN and creatinine back to normal latest blood cultures negative so far will continue the anti-inflammatories and continue traveling buyer recommendations. Get the patient out of bed and have a physical therapy evaluation. Intake & Output 03/10 1600 03/10 0400 03/09 1600 03/09 0400 03/08 1600 03/08 0400 Intake Total 360 718 5082 1180 2050 360 Output Total 600 300 Balance 300 280 330 798 9905 360 Intake, IV 3414 509 7692 300 Intake, Oral 300 280 450 580 550 60 Number 1 Bowel Movements Output, Urine 600 300 Patient 131 lb 137 lb Weight Current Medications Sig/Rose Marie Start time Last Medication Dose Route Stop Time Status Admin Acetaminophen 650 MG ONCE ONE 03/10 1215 DC 03/10 PO 03/10 1216 1209 Acetaminophen 325 MG ONCE ONE 03/10 06 DC 03/10 PO 03/10 0631 0630 Acetaminophen 650 MG Q6P PRN 03/07 0145 DC 03/09 PO 0616 Albuterol Sulfate 3 ML Q4P PRN 03/07 0800 AC 03/07 INH 0752 Aspirin Buffered 81 MG DAILY 03/07 0900 DC 03/09 PO 0802 Azithromycin 500 MG DAILY 03/11 09 CAN Sodium Chloride 250 ML IV Azithromycin 500 MG DAILY 03/07 1800 DC 03/10 Sodium Chloride 250 ML IV 0802 Benzonatate 100 MG TID PRN 03/07 0900 AC 03/09 PO 203 Ceftriaxone Sodium 1,000 MG DAILY 03/11 09 CAN IV Ceftriaxone Sodium 1,000 MG DAILY 03/07 1800 DC 03/10 IV 0802 Enoxaparin Sodium 40 MG DAILY 03/08 0900 AC 03/10 SC 0802 Ezetimibe 10 MG DAILY 03/07 0900 AC 03/10 PO 0802 Guaifenesin 600 MG Q12 03/08 2100 AC 03/10 PO 0802 Guaifenesin 10 ML Q4P PRN 03/06 2345 AC PO Ibuprofen 600 MG TID 03/07 1400 AC 03/10 PO 0802 Melatonin 10 MG AT BEDTIME 03/09 2100 AC 03/09 PO 203 Melatonin 5 MG AT BEDTIME 03/08 2100 DC 03/08 PO 203 Metoprolol Tartrate 12.5 MG BID 03/10 1217 AC PO Omeprazole 40 MG DAILY AC 03/07 1300 AC 03/10 PO 0552 Laboratory Tests 03/10/18 0630: Anion Gap 11, Estimated GFR > 60, BUN/Creatinine Ratio 10.0, CBC w Diff NO MAN DIFF REQ, RBC 3.43 L, MCV 87.5, MCH 28.5, MCHC 32.6 L, RDW 14.3, MPV 7.1 L, Gran % 74.4, Lymphocytes % 13.7 L, Monocytes % 4.9, Eosinophils % 6.6 H, Basophils % 0.4, Absolute Granulocytes 6.7 H, Absolute Lymphocytes 1.2, Absolute Monocytes 0.4, Absolute Eosinophils 0.6, Absolute Basophils 0 03/09/18 1350: ANCA Pending 03/09/18 1317: HIV 1&2 Ab Western Blot Cancelled 03/09/18 0630: Anion Gap 11, Estimated GFR > 60, BUN/Creatinine Ratio 6.7 L, CBC w Diff NO MAN DIFF REQ, RBC 3.41 L, MCV 86.4, MCH 29.4, MCHC 34.0, RDW 14.8 H, MPV 7.8, Gran % 77.4 H, Lymphocytes % 13.5 L, Monocytes % 4.3, Eosinophils % 4.4, Basophils % 0.4, Absolute Granulocytes 8.5 H, Absolute Lymphocytes 1.5, Absolute Monocytes 0.5, Absolute Eosinophils 0.5, Absolute Basophils 0, Hepatitis A IgM Ab NONREACTIVE, Hep Bs Antigen NONREACTIVE, Hep B Core IgM Ab Conf NONREACTIVE, Hepatitis C Antibody NONREACTIVE 03/09/18 0600: Cyclic Citrull Peptide <16 03/08/18 2000: Urine Color YEL, Urine Clarity CLEAR, Urine pH 6.0, Ur Specific [place] 1.020, Urine Protein NEG, Urine Ketones NEG, Urine Nitrite NEG, Urine Bilirubin NEG, Urine Urobilinogen 0.2, Ur Leukocyte Esterase NEG, Ur Microscopic SEDIMENT EXAMINED, Urine RBC RARE, Urine WBC RARE, Ur Epithelial Cells RARE, Urine Bacteria RARE H, Urine Hemoglobin SMALL H, Urine Glucose NEG 03/08/18 0600: IRVING Titer ND, Anti-Nuclear Antibody NEG 1:40 IFA ASSAY 03/08/18 0345: Anion Gap 12, Estimated GFR > 60, BUN/Creatinine Ratio 18.6, Total Bilirubin 0.3 , Direct Bilirubin 0.3, AST 27, ALT 41, Alkaline Phosphatase 172 H, Troponin I < 0.01, Total Protein 6.1 L, Albumin 2.9 L, Rheum Factor Semi-Quant 17.4 H 03/08/18 0316: Troponin I Cancelled 03/08/18 0136: Troponin I Cancelled 03/07/18 1625: ESR [place] 118 H Microbiology 03/08 2000 URINE ROUT: Urine Culture - COMP 03/08 1835 BLOOD: Blood Culture - RES 03/08 1828 BLOOD: Blood Culture - RES 03/07 1327 UPPER RESP: Surveillance Culture - CAN Cancelled: SPECIMEN NOT RECEIVED IN LABORATORY 03/07 1327 GI: Surveillance Culture - CAN Cancelled: SPECIMEN NOT RECEIVED IN LABORATORY Microbiology 03/08 2000 URINE ROUT: Urine Culture - COMP 03/08 1835 BLOOD: Blood Culture - RES 03/08 1828 BLOOD: Blood Culture - RES 03/077 UPPER RESP: Surveillance Culture - CAN Cancelled: SPECIMEN NOT RECEIVED IN LABORATORY 03/07 1327 GI: Surveillance Culture - CAN Cancelled: SPECIMEN NOT RECEIVED IN LABORATORY Vital Signs Date Time Temp Pulse Resp B/P B/P Pulse O2 O2 Flow FiO2 Mean Ox Delivery Rate 03/10 0705 101 16 124/70 94 Nasal 2.0L Cannula 03/09 221 98.5 102 22 124/88 93 03/09 2044 Nasal 1.0L Cannula 03/09 1834 98.8 80 16 104/76 97 03/09 1604 93 Nasal 2.0L Cannula 03/09 1450 97.8 94 18 110/60 93 Nasal 2.0L Cannula 03/09 1421 94 Nasal 4.0L Cannula
[2018-03-10 14:11] VITALS: BP 122/60
[2018-03-10 23:00] VITALS: BP 122/70
[2018-03-11 06:24] VITALS: BP 100/68
[2018-03-11 08:10] LABS: ABSOLUTE BASOPHIL COUNT 0 /CUMM (0.0-0.2); ABSOLUTE EOSINOPHIL COUNT 0.6 /CUMM (0.0-0.7); ABSOLUTE GRANULOCYTE CT 6.8 /CUMM (1.4-6.5); ABSOLUTE LYMPH COUNT 1.4 /CUMM (1.2-3.4); ABSOLUTE MONOCYTE COUNT 0.4 /CUMM (0.10-0.60); BASOPHIL % 0.4 % (0.0-2.0); EOSINOPHIL % 6.8 % (0-5); GRANULOCYTE % 73.8 % (42.2-75.2); HEMATOCRIT 30.1 % (37-47); MEAN CORPUSCULAR HGB 28.8 PG (27.0-31.0); MEAN CORPUSCULAR HGB CONC 33.3 G/DL (33.0-37.0); MEAN CORPUSCULAR VOLUME 86.5 FL (81.0-99.0); MEAN PLATELET VOLUME 6.9 FL (7.4-10.4); PLATELET COUNT 769 /CUMM (130-400); RBC DISTRIBUTION WIDTH 14.7 % (11.5-14.5); RED BLOOD CELL CT 3.48 /CUMM (4.20-5.40); WHITE BLOOD CELL COUNT 9.2 /CUMM (4.8-10.8)
[2018-03-11 08:25] VITALS: BP 100/68
--- NOTE | 2018-03-11 11:18 | PN- Housestaff ---
Subjective Follow-up For: possible pericarditis bronchitis Complaints: no complaints Tele-Events Since Last Visit: nsr with first degree heart block 80-117 Subjective: Patient reports that she slept well last night again. She has no complaints and is eager to leave, denies chest pain or shortness of breath. No headache. Continues to have nonproductive cough. Review of Systems Constitutional: Reports: no symptoms. Cardiovascular: Reports: no symptoms. Respiratory: Reports: cough. Gastrointestinal: Reports: no symptoms. Genitourinary: Reports: no symptoms. Musculoskeletal: Reports: no symptoms. Neurological/Psychological: Reports: no symptoms. Objective Last 24 Hrs of Vital Signs/I&O Vital Signs Date Time Temp Pulse Resp B/P B/P Pulse O2 O2 Flow FiO2 Mean Ox Delivery Rate 03/11 0825 111 100/68 03/11 0800 92 Room Air 03/11 0624 98.0 97 20 100/68 92 Room Air 03/10 2300 98.0 102 18 122/70 92 Room Air 03/10 2026 102 120/72 03/10 1600 Room Air Intake & Output 03/11 1600 03/11 0800 03/11 0000 Intake Total 260 240 Output Total Balance 260 240 Intake, Oral 260 240 Patient 129 lb Weight Weight Bed scale Measurement Method Physical Exam General Appearance: Alert, Oriented X3, Cooperative, No Acute Distress Skin: No Rashes HEENT: Atraumatic, EOMI, Mucous Membr. moist/pink Cardiovascular: Regular Rate, Normal S1, Normal S2, No Murmurs Lungs: Clear to Auscultation, Normal Air Movement Abdomen: Soft, No Tenderness Extremities: No Clubbing, No Cyanosis, No Edema Current Medications: Current Medications Sig/Rose Marie Start time Last Medication Dose Route Stop Time Status Admin Benzonatate 100 MG .STK-MED ONE 03/10 1641 DC PO 03/10 164 Benzonatate 100 MG TID PRN 03/07 09 DCD 03/10 PO 1642 Enoxaparin Sodium 40 MG DAILY 03/08 09 DCD 03/11 SC 0826 Ezetimibe 10 MG DAILY 03/07 0900 DCD 03/11 PO 0826 Guaifenesin 600 MG Q12 03/08 2100 DCD 03/11 PO 0826 Guaifenesin 10 ML Q4P PRN 03/06 2345 DCD PO Ibuprofen 600 MG TID 03/07 1400 DCD 03/11 PO 1408 Melatonin 10 MG AT BEDTIME 03/09 2100 DCD 03/10 PO 2117 Metoprolol Tartrate 12.5 MG BID 03/10 1217 DCD 03/11 PO 0825 Omeprazole 40 MG DAILY AC 03/07 1300 DCD 03/11 PO 0545 Patient Medication 1 ED ONE ONE 03/10 1845 [facility] Teaching ED 03/10 1846 Last 24 Hrs of Lab/Michael Results Last 24 Hrs of Labs/Mics: Laboratory Tests 03/11/18 0640: CBC w Diff NO MAN DIFF REQ, RBC 3.48 L, MCV 86.5, MCH 28.8, MCHC 33.3, RDW 14.7 H, MPV 6.9 L, Gran % 73.8, Lymphocytes % 15.0 L, Monocytes % 4.0, Eosinophils % 6.8 H, Basophils % 0.4, Absolute Granulocytes 6.8 H, Absolute Lymphocytes 1.4, Absolute Monocytes 0.4, Absolute Eosinophils 0.6, Absolute Basophils 0 Assessment/Plan Assessment: 87 year old female with history of smoking, HTN, and HLD minimally productive cough, shortness of breath, chest pain and weakness for last 3 weeks. Of note, the patient and her family states that since she fell in December, a drop attack with loss of consciousness, things have not been the same. Her admission from December was examined and no etiology was found. Chest pain and cough: Could be secondary to pneumonia, no evidence on CTA but temperature Tmax was 100.7 two days back which then resolved, has been afebrile since. The patient was on azithromycin and ceftriaxone for potential pneumonia BUT IT WAS STOPPED TODAY. CTA ruled out pulmonary embolism. A small to moderate pericardial effusion that was new compared to her December reading was seen and could be a possible pericarditis. Today her ESR is found to be elevated at 120, CRP as well. RF was found to be positive. Also interestingly, patient does not use oxygen outpatient but has required 4 L here, WAS WEANED FROM O2 AND IS SATURATING WELL. No chest x-ray was done on admission but CTA did not show any significant pathology other than a moderate pericardial effusion and small pleural effusions. On physical exam, there was a cardiac rub noted by previous examiners, not noted today. We did appreciate a pleural rub in the lower lung bowen bilaterally previously as well but did not notice this today. Patient did have troponins and EKGs that were normal. -Infection not suspected, DC'd antibiotics. Continue ibuprofen 600 mg 3 times a day for total three weeks for potential pericarditis with a PPI 40 milligrams by mouth daily for gastric protection -IRVING negative, follow up ANCA outpatient -Chest x-ray shows no change from CTA -TRC nebulization as needed -Mucinex for cough -Follow blood cultures -Follow sputum cultures -Urine strep and Legionella antigen influenza all negative -Incentive spirometry -Chest physiotherapy -Cardiology consulted, appreciate recommendations Echocardiogram results: 1. Normal EF of 70%. 2. Mild tricuspid regurgitation. 3. Trace aortic regurgitation. 4. Mild pulmonary hypertension. 5. Trace pericardial effusion. -We restarted HCTZ which was held for dehydration on admission, 12.5mg daily -We restarted metoprolol 12.5mg bid in hospital History of hyperlipidemia: -Continue Lipitor -Elevated liver function tests: Right upper quadrant ultrasound was normal status post cholecystectomy -Monitor heart healthy diet DVT ppx-Lovenox Full code Problem List: 1. Bronchitis 2. Chest pain Pain Ratin Pain Location: na Pain Goal: Remain pain free Pain Plan: na Tomorrow's Labs & Rationales: na
[2018-03-11] MEDS ORDERED: IBUPROFEN600 M1 PO (12:03)
[2018-03-11] MEDS ORDERED: METOPROLOL TART25 M1 PO (12:03)
[2018-03-11] MEDS ORDERED: OMEPRAZOLE20 M2 PO ×2 (13:00→13:19)
--- NOTE | 2018-03-11 14:17 | PN- Att Addend ---
Attending Addendum Attending Brief Note Patient overall feeling better. Had 2 or 3 loose bowel movements earlier. Vital signs are stable no fever no major changes on physical exam white count 9200 hemoglobin 10 hematocrit 31,, blood cultures negative so far urine cultures negative. Some of the cough persists, but the pain is better with anti-inflammatories. Will follow cardiology's recommendations regarding the anti-inflammatories patient is finished with antibiotics today will start disposition plans for the patient to go home and follow-up with myself in the specialists. Intake & Output 03/11 1600 03/10 04003/09 1600 03/09 0400 Intake Total [phone] 5231 1180 Output Total 600 300 Balance 260 240 300 280 950 880 Intake, IV 1100 600 Intake, Oral 260 240 300 280 450 580 Number 1 Bowel Movements Output, Urine 600 300 Patient 129 lb 131 lb 137 lb Weight Weight Bed scale Measurement Method Current Medications Sig/Rose Marie Start time Last Medication Dose Route Stop Time Status Admin Benzonatate 100 MG .STK-MED ONE 03/10 164 AL PO 03/10 164 Benzonatate 100 MG TID PRN 03/07 0900 03/10 PO 1642 Enoxaparin Sodium 40 MG DAILY 03/08 0900 AC 03/11 SC 0826 Ezetimibe 10 MG DAILY 03/07 0900 AC 03/11 PO 0826 Guaifenesin 600 MG Q12 03/08 2100 AC 03/11 PO 0826 Guaifenesin 10 ML Q4P PRN 03/06 2345 AC PO Ibuprofen 600 MG TID 03/07 1400 AC 03/11 PO 1408 Melatonin 10 MG AT BEDTIME 03/09 2100 03/10 PO 2117 Metoprolol Tartrate 12.5 MG BID 03/10 1217 AC 03/11 PO 0825 Omeprazole 40 MG DAILY AC 03/07 1300 AC 03/11 PO 0545 Patient Medication 1 ED ONE ONE 03/10 184 [facility] ED 03/10 184 Laboratory Tests 03/11/18 0640: CBC w Diff NO MAN DIFF REQ, RBC 3.48 L, MCV 86.5, MCH 28.8, MCHC 33.3, RDW 14.7 H, MPV 6.9 L, Gran % 73.8, Lymphocytes % 15.0 L, Monocytes % 4.0, Eosinophils % 6.8 H, Basophils % 0.4, Absolute Granulocytes 6.8 H, Absolute Lymphocytes 1.4, Absolute Monocytes 0.4, Absolute Eosinophils 0.6, Absolute Basophils 0 03/10/18 0630: Anion Gap 11, Estimated GFR > 60, BUN/Creatinine Ratio 10.0, CBC w Diff NO MAN DIFF REQ, RBC 3.43 L, MCV 87.5, MCH 28.5, MCHC 32.6 L, RDW 14.3, MPV 7.1 L, Gran % 74.4, Lymphocytes % 13.7 L, Monocytes % 4.9, Eosinophils % 6.6 H, Basophils % 0.4, Absolute Granulocytes 6.7 H, Absolute Lymphocytes 1.2, Absolute Monocytes 0.4, Absolute Eosinophils 0.6, Absolute Basophils 0 03/09/18 1350: ANCA Pending 03/09/18 1317: HIV 1&2 Ab Western Blot Cancelled 03/09/18 0630: Anion Gap 11, Estimated GFR > 60, BUN/Creatinine Ratio 6.7 L, CBC w Diff NO MAN DIFF REQ, RBC 3.41 L, MCV 86.4, MCH 29.4, MCHC 34.0, RDW 14.8 H, MPV 7.8, Gran % 77.4 H, Lymphocytes % 13.5 L, Monocytes % 4.3, Eosinophils % 4.4, Basophils % 0.4, Absolute Granulocytes 8.5 H, Absolute Lymphocytes 1.5, Absolute Monocytes 0.5, Absolute Eosinophils 0.5, Absolute Basophils 0, Hepatitis A IgM Ab NONREACTIVE, Hep Bs Antigen NONREACTIVE, Hep B Core IgM Ab Conf NONREACTIVE, Hepatitis C Antibody NONREACTIVE 03/09/18 0600: Cyclic Citrull Peptide <16 03/08/181999: Urine Color YEL, Urine Clarity CLEAR, Urine pH 6.0, Ur Specific [place] 1.020, Urine Protein NEG, Urine Ketones NEG, Urine Nitrite NEG, Urine Bilirubin NEG, Urine Urobilinogen 0.2, Ur Leukocyte Esterase NEG, Ur Microscopic SEDIMENT EXAMINED, Urine RBC RARE, Urine WBC RARE, Ur Epithelial Cells RARE, Urine Bacteria RARE H, Urine Hemoglobin SMALL H, Urine Glucose NEG Microbiology 03/08 2000 URINE ROUT: Urine Culture - COMP 03/08 1835 BLOOD: Blood Culture - RES 03/08 182 BLOOD: Blood Culture - RES Microbiology 03/08 2000 URINE ROUT: Urine Culture - COMP 03/08 1835 BLOOD: Blood Culture - RES 03/08 1828 BLOOD: Blood Culture - RES Vital Signs Date Time Temp Pulse Resp B/P B/P Pulse O2 O2 Flow FiO2 Mean Ox Delivery Rate 03/11 08 111 100/68 03/11 0800 92 Room Air 03/11 0624 98.0 97 20 100/68 92 Room Air 03/10 2300 98.0 102 18 122/70 92 Room Air 03/10 2026 102 120/72 03/10 1600 Room Air
--- NOTE | 2018-03-16 20:30 | Discharge Summary ---
Visit Information Visit Dates Admission Date: 03/06/18 Discharge Date: 03/11/18 Hospital Course Course Attending Physician: Zoran Lainez MD Primary Care Physician: Zoran Lainez MD Consulting Request: Consulting Specialty: Cardiology Consulting Physician: Dr. Berger Reason for Consult: chest pain shortness of breath more pleural effusions and small pericardia Hospital Course: 87-year-old active female with history of hypertension hyperlipidemia osteo arthritis for the last 3 weeks not feeling well I saw her in the office for what looks like a bronchitis but given antibiotics but she did not feel good she continued having some shortness of breath and some chest pain were worse with inspiration comes to the emergency room is evaluated and admitted next morning she was tachycardic transfer to telemetry had a cardiology consultation, the EKG had nonspecific ST-T abnormalities such she might have pericarditis that she had a CTA of the chest which shows no PE but small pericardial effusions and possible pericarditis with a tiny pericardial effusion or atelectasis. Her sedimentation rate was elevated liver function tests were slightly abnormal her white count was elevated to diuretics were put on hold the reevaluated her colitis is less possibility of pericarditis nonsteroidal anti-inflammatories moved improved she also was kept on antibiotics before discharge her metoprolol was restarted diuretics were on hold able for discharge Complications: None Allergies: Coded Allergies: NO KNOWN ALLERGIES (04/10/11) Significant Procedures: SERVICE DATE: 03/05/18 EXAM TYPE: RAD - XRY-CHEST XRAY, TWO VIEWS EXAMINATION: XR CHEST CLINICAL INFORMATION: Cough for 3 weeks. COMPARISON: 12/21/2017 TECHNIQUE: 2 views of the chest were obtained. FINDINGS: Since the prior study, a tiny left pleural effusion has developed. A definite infiltrate is not seen. The heart size is within normal limits and there is no evidence of CHF. No suspicious lung masses are seen. IMPRESSION: New tiny left pleural effusion. SERVICE DATE: 03/07/1806 EXAM TYPE: US - US-LIMITED ABDOMEN EXAMINATION: ABDOMINAL ULTRASOUND LIMITED CLINICAL INFORMATION: Elevated LFTs. COMPARISON: None. TECHNIQUE: Real-time imaging of the right upper quadrant abdominal viscera. FINDINGS: PANCREAS: The visualized pancreatic head and body are normal in appearance. The remainder of the pancreas is obscured from visualization by the overlying bowel gas. LIVER: The liver is of normal size and echogenicity without focal lesions nor intrahepatic biliary ductal dilation. GALLBLADDER: The patient is status post cholecystectomy. COMMON BILE DUCT: Normal in caliber measuring 0.8 cm in diameter. RIGHT KIDNEY: Normal. No hydronephrosis. No renal calculi or focal parenchymal lesions. The kidney measures 9.8 cm in maximum dimension. FREE FLUID: None. IMPRESSION: Unremarkable limited right upper quadrant ultrasound status post cholecystectomy. SERVICE DATE: 03/07/18 EXAM TYPE: CAT - CTA CHEST-PULMONARY EMBOLISM EXAMINATION: CT ANGIOGRAM OF THE CHEST WITH CONTRAST (CT PULMONARY ANGIOGRAM FOR PE) CLINICAL INFORMATION: Tachycardia. Elevated d-dimer. Evaluate for pulmonary embolism. COMPARISON: Chest CT from 12/20/2017. TECHNIQUE: Prior to contrast administration, noncontrast localization images were obtained. Subsequently, multidetector volumetric imaging was performed from the thoracic inlet to below the diaphragms following the administration of 80 mL of Optiray 320 intravenous contrast. No contrast reaction reported. Sagittal, coronal, and MIP oblique sagittal reformatted images were obtained on the CT workstation, uploaded to PACS, and reviewed. DLP: Total exam dose-length product 252 mGy-cm FINDINGS: QUALITY OF STUDY/CONTRAST BOLUS: Satisfactory. PULMONARY ARTERIES: Pulmonary arteries are normal in size. No embolic filling defects are identified within the main, lobar or segmental vessels. THORACIC AORTA: Mild atherosclerotic calcification of the thoracic aorta without aneurysm or dissection. LUNGS AND PLEURA: Trachea and central airways are widely patent and normal in caliber. There is wall calcification of the bronchial tree - relatively common finding in elderly patients. Ytqyfsze-xc-dybhjd centrilobular emphysema. Small bilateral pleural effusions with compressive atelectasis in lower lobes are new findings compared to 12/20/2017. Mild atelectasis in inferior lingula and medial segment of middle lobe, as well. CARDIOVASCULAR: The heart size is normal. There is mild atherosclerotic calcification of coronary arteries. No inward bowing of the interventricular septum. Melhd-jc-uelvhhma pericardial effusion is new compared to 12/20/2017. MEDIASTINUM: The esophagus has normal wall thickness. Thyroid gland is atrophied. No mediastinal mass. LYMPHATICS: No internal mammary, axillary or hilar lymphadenopathy. Multiple small lymph nodes of < 1 cm short axis dimension are present in the mediastinum, not pathologic on the basis of size criteria. UPPER ABDOMEN: Gallbladder is surgically absent. No reflux of contrast into the IVC. OSSEOUS STRUCTURES: No aggressive osseous lesions. IMPRESSION: 1. No evidence of pulmonary embolism. 2. Centrilobular pulmonary emphysema. 3. Eswii-gd-bbalqoaw pericardial effusion is new compared to 12/20/2017; consider possibility of pericarditis. 4. New, small pleural effusions and bibasilar atelectasis. SERVICE DATE: 03/09/18- EXAM TYPE: RAD - XRY-CHEST XRAY, TWO VIEWS EXAMINATION: XR CHEST CLINICAL INFORMATION: Increased oxygen requirement. Presumptive diagnosis of question pleural effusion. COMPARISON: Several prior chest x-rays, most recent of which is dated 03/05/2018. CTA of the chest dated 03/07/2018. TECHNIQUE: AP sitting and lateral views of the chest were obtained. FINDINGS: The cardiomediastinal silhouette is within normal limits in size. Calcification of the aortic arch is seen. Small bilateral pleural effusions are seen with associated bibasilar opacities, unchanged from recent CT scan and likely due to subsegmental atelectasis. Superimposed or evolving pneumonia cannot be excluded. There is underlying obstructive lung disease. Diffuse osteopenia is seen. Upper abdominal jasbir in place, consistent with prior cholecystectomy. IMPRESSION: Small bilateral pleural effusions and associated bibasilar opacities are unchanged from CTA of the chest from 03/07/2018, but progressive compared to chest x-ray from 03/05/2018. Pertinent Lab Results: 03/06/18 2210: Total Bilirubin 0.7, Direct Bilirubin 0.7 H, AST 69 H, ALT 75 H, Alkaline Phosphatase 235 H, Lactate Dehydrogenase 599, Troponin I < 0.01, C-Reactive Prot, Quant > 9.0 H, Nck-I-Ozsmyjxukij Pept 763 H, Total Protein 6.9, Albumin 3.5, Acetaminophen < 10.0 L 03/07/18 0805: Anion Gap 14, Estimated GFR > 60, BUN/Creatinine Ratio 17.1, Total Bilirubin 0.7 , Direct Bilirubin 0.6 H, AST 40 H, ALT 49, Alkaline Phosphatase 187 H, Troponin I < 0.01, Total Protein 6.1 L, Albumin 3.0 L, TSH 4.020, Free T4 2.31 H, PT 14.1 H, INR 1.29 H, APTT 28, D-Dimer High Sensitivty 3944 H, CBC w Diff NO MAN DIFF REQ, RBC 3.51 L, MCV 86.4, MCH 28.9, MCHC 33.5, RDW 14.8 H, MPV 7.2 L, Gran % 84.3 H, Lymphocytes % 9.1 L, Monocytes % 6.4, Eosinophils % 0.2, Basophils % 0, Absolute Granulocytes 12.3 H, Absolute Lymphocytes 1.3, Absolute Monocytes 0.9 H, Absolute Eosinophils 0, Absolute Basophils 0, Retic Count 2.51 H 03/07/18 1625: ESR Westergren 118 H 03/07/18 0806: Urinalysis LIGHT H, Urine Color BELINDA, Urine Clarity CLEAR, Urine pH 6.0, Ur Specific [place] 1.025, Urine Protein NEG, Urine Ketones NEG, Urine Nitrite NEG, Urine Bilirubin NEG, Urine Urobilinogen 0.2, Ur Leukocyte Esterase NEG, Ur Microscopic SEDIMENT EXAMINED, Urine RBC 1-3, Urine WBC 3-5 H, Ur Epithelial Cells OCCAS, Urine Bacteria FEW H, Hyaline Casts 10-15 H, Granular Casts 10-15 H, Urine Mucus FEW, Urine Hemoglobin TRACE-INTACT, Urine Glucose NEG 03/08/18 2000: Urine Color YEL, Urine Clarity CLEAR, Urine pH 6.0, Ur Specific [place] 1.020, Urine Protein NEG, Urine Ketones NEG, Urine Nitrite NEG, Urine Bilirubin NEG, Urine Urobilinogen 0.2, Ur Leukocyte Esterase NEG, Ur Microscopic SEDIMENT EXAMINED, Urine RBC RARE, Urine WBC RARE, Ur Epithelial Cells RARE, Urine Bacteria RARE H, Urine Hemoglobin SMALL H, Urine Glucose NEG 03/08/18 0600: IRVING Titer ND, Anti-Nuclear Antibody NEG 1:40 IFA ASSAY 03/08/18 0345: Anion Gap 12, Estimated GFR > 60, BUN/Creatinine Ratio 18.6, Total Bilirubin 0.3 , Direct Bilirubin 0.3, AST 27, ALT 41, Alkaline Phosphatase 172 H, Troponin I < 0.01, Total Protein 6.1 L, Albumin 2.9 L, Rheum Factor Semi-Quant 17.4 H 03/08/18 0316: Troponin I Cancelled Anion Gap 11, Estimated GFR > 60, BUN/Creatinine Ratio 6.7 L, CBC w Diff NO MAN DIFF REQ, RBC 3.41 L, MCV 86.4, MCH 29.4, MCHC 34.0, RDW 14.8 H, MPV 7.8, Gran % 77.4 H, Lymphocytes % 13.5 L, Monocytes % 4.3, Eosinophils % 4.4, Basophils % 0.4, Absolute Granulocytes 8.5 H, Absolute Lymphocytes 1.5, Absolute Monocytes 0.5, Absolute Eosinophils 0.5, Absolute Basophils 0, Hepatitis A IgM Ab NONREACTIVE, Hep Bs Antigen NONREACTIVE, Hep B Core IgM Ab Conf NONREACTIVE, Hepatitis C Antibody NONREACTIVE 03/09/18 0600: Cyclic Citrull Peptide <16 03/10/18 0630: 03/11/18 0640: CBC w Diff NO MAN DIFF REQ, RBC 3.48 L, MCV 86.5, MCH 28.8, MCHC 33.3, RDW 14.7 H, MPV 6.9 L, Gran % 73.8, Lymphocytes % 15.0 L, Monocytes % 4.0, Eosinophils % 6.8 H, Basophils % 0.4, Absolute Granulocytes 6.8 H, Absolute Lymphocytes 1.4, Absolute Monocytes 0.4, Absolute Eosinophils 0.6, Absolute Basophils 0 Anion Gap 11, Estimated GFR > 60, BUN/Creatinine Ratio 10.0, CBC w Diff NO MAN DIFF REQ, RBC 3.43 L, MCV 87.5, MCH 28.5, MCHC 32.6 L, RDW 14.3, MPV 7.1 L, Gran % 74.4, Lymphocytes % 13.7 L, Monocytes % 4.9, Eosinophils % 6.6 H, Basophils % 0.4, Absolute Granulocytes 6.7 H, Absolute Lymphocytes 1.2, Absolute Monocytes 0.4, Absolute Eosinophils 0.6, Absolute Basophils 0 Disposition Summary Disposition Principal Diagnosis: Acute bronchitis Acute pericarditis and small pleural effusions Additional Diagnosis: Hypertension Hyperlipidemia Osteoarthritis Discharge Disposition: home health services Discharge Instructions General Discharge Information Code Status: Full Code Patient's Diet: Healthy heart. Patient's Activity: Self-limited Follow-Up Instructions/Appts: Follow-up with Dr. Migel Berger Medications at Discharge Discharge Medications: Stop taking the following medications: Doxycycline Hyclate (Doxycycline Hyclate) 100 MG TABLET ORAL TWICE DAILY Qty = 20 Metoprolol Tartrate (Metoprolol Tartrate) 50 MG TABLET ORAL TWICE DAILY Qty = 180 Continue taking these medications: Hydrochlorothiazide (Hydrochlorothiazide) 12.5 MG CAPSULE 1 Capsule ORAL DAILY Qty = 90 Comments: Last Taken: NOT GIVEN IN HOSPTIAL Time: Ezetimibe (Zetia) 10 MG TABLET 1 Tablet ORAL DAILY Qty = 30 Comments: Last Taken: 03/11/18 Time: 8:30 AM Alendronate Sodium (Alendronate Sodium) 70 MG TABLET 1 Tablet ORAL EVERY FRIDAY Qty = 12 Instructions: in the morning, at least 30 minutes before the first food, beverage, or medication of the day Comments: Last Taken: NOT GIVEN IN HOSPITAL Time: Simvastatin (Simvastatin*) 40 MG TABLET 1 Tablet ORAL TAKE AT BEDTIME Qty = 90 Comments: Last Taken: NOT GIVEN IN HOSPITAL Time: Aspirin (Ecotrin*) 81 MG TABLET.DR 1 Tablet ORAL DAILY Comments: Last Taken: 03/09/18 Time: 8:00 AM Start taking the following new medications: Omeprazole (Omeprazole) 20 MG CAPSULE.DR 2 Tablet ORAL DAILY Qty = 60 No Refills Comments: Last Taken: 03/11/18 Time: 5:45 AM Ibuprofen (Ibuprofen) 600 MG TABLET 1 Tablet ORAL THREE TIMES DAILY Qty = 54 No Refills Instructions: TAKE UNTIL 03/28 NIGHT Comments: Last Taken: 03/11/18 Time: 8:30 AM Metoprolol Tartrate (Metoprolol Tartrate) 25 MG TABLET 12.5 Milligram ORAL TWICE DAILY Qty = 30 No Refills Instructions: PLEASE SPLIT TABLET AND TAKE .5 TWICE DAILY Comments: Last Taken: 03/11/18 Time: 8:30 AM Copies To: Zoran Lainez MD; Celine VIRK PHD,Brody Ball MD Review Statement Documenting Attending: Zoran Lainez MD
== END 2018-03-11 14:25 | DRG 194 ==
LOC: ERH 16:59 → ERHI 18:49 → 1NO 18:49 → EDBEDREQ 19:29 → ENRESERV 19:49 → ENTRNSPT 20:10 → 1NO 20:15 → EDTRNSPTSTS 20:17 → 2NB 20:19 → CMPTRNSPT 20:36 → DELTRNSPT 20:51 → 1NO 03-07 14:11 → ENPENDDIS 03-11 13:55 → ENTRNSPT 03-11 14:11 → EDTRNSPT 03-11 14:13 → EDTRNSPTSTS 03-11 14:13 → CMPTRNSPT 03-11 14:21 → 1NO 03-11 14:25
PROVIDERS: Internal Medicine; Preventive Medicine Public Health & General Preventive Medicine; Student in an Organized Health Care Education/Training Program
DX: J18.9 Pneumonia, unspecified organism (principal); I31.9 Disease of pericardium, unspecified; E87.1 Hypo-osmolality and hyponatremia; I31.3 Pericardial effusion (noninflammatory); E86.0 Dehydration; R09.1 Pleurisy; R74.0 Nonspecific elevation of levels of transaminase and lactic acid dehydrogenase [LDH]; E87.6 Hypokalemia; E78.5 Hyperlipidemia, unspecified; I10 Essential (primary) hypertension; M19.90 Unspecified osteoarthritis, unspecified site; Z90.49 Acquired absence of other specified parts of digestive tract; R00.0 Tachycardia, unspecified; M81.0 Age-related osteoporosis without current pathological fracture; I44.0 Atrioventricular block, first degree; J40 Bronchitis, not specified as acute or chronic
CPT/HCPCS: 1NP; 2NBP; 86021; 86200; 36415; 36592; 71046; 81001; 82436; 86431; 87040; 87070; 87086; 87389; 87449; 87450; 87804; 87804-59; 93005; 93010; 93306; 96374; 96375; G0480; J0456; J0696; J1650; J2405; J3010; J7040; J7042

== ENCOUNTER 2018-03-17 09:17 | Observation (INO) | payer OTHER ==
[~2018-03-17] VITALS: Ht 157.5 cm; Wt 58.1 kg
[~2018-03-17 09:17] MED LIST changes: +ACETAMINOPHEN500 M4 PO; +ASPIRIN EC81 M1 PO; +DOXYCYCLINE HY100 M4 PO; +IBUPROFEN600 M1 PO; +METOPROLOL TART25 M1 PO; +METOPROLOL TART50 M1 PO; +OMEPRAZOLE20 M2 PO; +SIMVASTATIN40 M1 PO
--- NOTE | 2018-03-17 09:30 | ED GENERAL ADULT ---
History of Present Illness General Chief Complaint: Dyspnea (COPD, CHF, Other) Stated Complaint: SOB/CP Source: patient, family Exam Limitations: no limitations Vital Signs & Intake/Output Vital Signs & Intake/Output Vital Signs Date Time Temp Pulse Resp B/P B/P Pulse O2 O2 Flow FiO2 Mean Ox Delivery Rate 03/17 1934 Nasal 4.0L Cannula 03/17 1837 93 Nasal 3.0L Cannula 03/17 1832 96.2 96 18 110/62 93 Nasal 3.0L Cannula 03/17 1704 97.5 99 20 112/64 92 Nasal 3.0L Cannula 03/17 1439 97.6 91 18 96/53 92 Nasal 2.0L Cannula 03/17 1314 98.0 94 20 96/53 93 Nasal 2.0L Cannula 03/17 1220 119 108/57 03/17 1146 98.6 03/17 1139 98.6 119 20 108/57 91 Nasal 2.0L Cannula 03/17 1124 99.1 03/17 1102 99.1 122 16 92 Room Air 03/17 1038 91 03/17 0933 91 Room Air 03/17 0923 99.0 120 20 122/73 90 Room Air Allergies Coded Allergies: NO KNOWN ALLERGIES (04/10/11) Reconcile Medications Alendronate Sodium 70 MG TABLET 1 TAB PO QSUN OSTEOPOROSIS (Reported) in the morning, at least 30 minutes before the first food, beverage, or medication of the day Aspirin (Ecotrin*) 81 MG TABLET.DR 1 TAB PO DAILY HEART/BLOOD (Reported) Cholecalciferol (Vitamin D3) (Vitamin D3) 2,000 UNIT TABLET 1 TAB PO DAILY VITAMIN SUPPORT (Reported) Ezetimibe (Zetia) 10 MG TABLET 1 TAB PO DAILY HIGH CHOLESTROL (Reported) Hydrochlorothiazide 12.5 MG CAPSULE 1 CAP PO DAILY HIGH BLOOD PRESSURE ( Reported) Levothyroxine Sodium 125 MCG TABLET 0.5 TAB PO DAILY AC THYROID (Reported) Metoprolol Tartrate 25 MG TABLET 1 TAB PO BID HEART (Reported) Simvastatin (Simvastatin*) 40 MG TABLET 1 TAB PO QHS CHOLESTEROL (Reported) Triage Note: PER PT COUGH, SOB X 3 WEEKS PT INPT X 5 DAYS 10 DAYS AGO FOR SAME,. CO CP ASSOC WITH INSPIRATION NOT COUGHING UP SPUTUM Triage Nurses Notes Reviewed? yes Onset: Abrupt Duration: day(s): Timing: recent history HPI: 03/17/18 11 AM 87-year-old female presents to the emergency department complaining of difficulty breathing. According to the patient she has been having intermittent difficulty breathing really since discharge. She has a persistent cough. She denies fever. She also admits to pleuritic chest pain only when she coughs. Past History Travel History Traveled to [place] past 21 day No Medical History Any Pertinent Medical History? see below for history Neurological: NONE EENT: NONE Cardiovascular: hypertension, hyperlipidemia Respiratory: NONE Gastrointestinal: NONE Hepatic: NONE Renal: NONE Musculoskeletal: osteoarthritis Psychiatric: NONE Endocrine: NONE Blood Disorders: NONE Cancer(s): NONE INTERNAL CONTROLS SPECIALIST/Reproductive: NONE History of MRSA: No History of VRE: No History of CDIFF: No Influenza Vaccine: 08/09/17 Surgical History Surgical History: CHOLECYSTECTOMY HERNIA Psychosocial History Who do you live with Daughter What is your primary language Slovenian Tobacco Use: Never used Family History Hx Contributory? No Review of Systems Review of Systems Constitutional: Denies: fever. EENTM: Reports: no symptoms. Respiratory: Reports: cough, short of breath. Cardiovascular: Reports: see HPI. GI: Denies: abdominal pain. Genitourinary: Reports: no symptoms. Musculoskeletal: Reports: no symptoms. Skin: Denies: rash. Neurological/Psychological: Reports: no symptoms. Hematologic/Endocrine: Reports: no symptoms. Immunologic/Allergic: Reports: no symptoms. Physical Exam Physical Exam General Appearance: well developed/nourished, alert, awake, anxious Head: atraumatic, normal appearance Eyes: Bilateral: normal appearance, PERRL, EOMI. Ears, Nose, Throat: normal pharynx, normal ENT inspection Neck: normal inspection, supple, full range of motion Respiratory: decreased breath sounds Cardiovascular: regular rate/rhythm Peripheral Pulses: 4+ radial (R), 4+ radial (L) Gastrointestinal: soft, non-tender Back: normal range of motion Extremities: normal inspection, normal range of motion Neurologic/Psych: no motor/sensory deficits, awake, alert, oriented x 3 Skin: intact, normal color, warm/dry Core Measures ACS in differential dx? No CVA/TIA Diagnosis: No Sepsis Present: No Sepsis Focused Exam Completed? No Progress Differential Diagnoses I considered the following diagnoses in my evaluation of the patient: [Pneumonia , pneumothorax, COPD, asthma, pulmonary embolism and CHF] Plan of Care: Orders Procedure Date/time Status CBC WITHOUT DIFFERENTIAL 03/19 600 Active BASIC ELECTROLYTES PLUS BUN&CR 03/19 06 Active EKG 03/18 06 Active Regular Diet 05 D Active RT: Evaluation 03/17 1933 Active Vital Signs 03/17 1813 Active Teach/Educate 03/17 1813 Active Pain Treatment and Response 03/17 181 Active Nutritional Intake, Monitor 03/17 181 Active Isolation 03/17 181 Active Intake & Output 03/17 181 Active Patient Care Conference 03/17 181 Active Activity/Ambulation 03/17 1813 Active Patient Data 03/17 1644 Active TRC EVALUATION (GEN) 03/17 1553 Complete RAPID VIRAL INFLUENZA A 03/17 1544 Complete CULTURE,URINE 03/17 1544 Active STREP PNEUMO URINARY ANTIGEN 03/17 1544 Complete LEGIONELLA URINARY ANTIGEN 03/17 1544 Complete BLOOD CULTURE 03/17 1544 Active URINALYSIS 03/17 1544 Complete PT Evaluate & Treat 03/17 1538 Active Pathway - chart 03/17 1538 Active House Staff 03/17 1538 Active Code Status 03/17 1538 Active ED Holding Orders 03/17 1534 Active Vital Signs 03/17 1534 Active Code Status 03/17 1534 Complete Add-on Test (ER Only) 03/17 1508 Active Add-on Test (ER Only) 03/[address] in observation 03/17 1430 Active Saline Lock 03/17 1030 Active TROPONIN LEVEL 03/17 1030 Complete D-DIMER 03/17 1030 Complete COMPREHENSIVE METABOLIC PANEL 03/17 1030 Complete CBC WITHOUT DIFFERENTIAL 03/17 1030 Complete B-TYPE NATRIURETIC PEP (BNP) 03/17 1030 Complete EKG 03/17 0924 Active THERAPIST ORDERS 03/17 UNK Complete Lab Add-on Test 03/17 UNK Active VTE Mechanical Prophylaxis 03/17 UNK Active Intake & Output 03/17 UNK Active Current Medications Sig/Rose Marie Start time Last Medication Dose Stop Time Status Admin Aspirin Buffered 81 MG DAILY 03/18 900 AC (Ecotrin) Cholecalciferol 1,000 IU DAILY 03/18 900 AC (Vitamin D) Enoxaparin Sodium 40 MG DAILY 03/18 900 AC (Lovenox) Ezetimibe 10 MG DAILY 03/18 900 AC (Zetia) Hydrochlorothiazide 12.5 MG DAILY 03/18 900 CAN (Hydrodiuril) Levothyroxine Sodium 0.0625 MG DAILY AC 03/18 700 AC (Synthroid) Omeprazole 40 MG DAILY AC 03/18 700 AC (Prilosec) Albuterol Sulfate 3 ML BID 03/17 2100 AC 03/17 (Proventil) 1943 Ibuprofen 600 MG TID 03/17 2100 AC (Motrin) Methylprednisolone 40 MG Q12 03/17 2100 AC (Solumedrol) Metoprolol Tartrate 25 MG BID 03/17 2100 AC (Lopressor) Azithromycin 500 MG DAILY 03/17 155 AC 03/17 (Zithromax) 03/21 959 163 Sodium Chloride 250 ML (Normal Saline 0.9%) Laboratory Tests 03/17/18 163: Urinalysis LIGHT H, Urine Color YEL, Urine Clarity CLEAR, Urine pH 6.0, Ur Specific [place] 1.020, Urine Protein NEG, Urine Ketones NEG, Urine Nitrite NEG, Urine Bilirubin NEG, Urine Urobilinogen 0.2, Ur Leukocyte Esterase NEG, Ur Microscopic SEDIMENT EXAMINED, Urine RBC 1-3, Urine WBC 1-3 H, Ur Epithelial Cells FEW, Urine Bacteria FEW H, Hyaline Casts RARE H, Urine Mucus MOD H, Urine Hemoglobin SMALL H, Urine Glucose NEG 03/17/18 1030: Anion Gap 15, Estimated GFR > 60, BUN/Creatinine Ratio 17.5, Glucose 96, Calcium 9.1, Total Bilirubin 0.6, AST 20, ALT 31, Alkaline Phosphatase 121, Troponin I < 0.01, Rhy-P-Pinvddphmeq Pept 710 H, Total Protein 7.0, Albumin 3.7, Globulin 3.3, Albumin/Globulin Ratio 1.1, D-Dimer High Sensitivty 2663 H, CBC w Diff MAN DIFF ORDERED, RBC 4.00 L, MCV 85.8, MCH 27.9, MCHC 32.5 L, RDW 15.2 H, MPV 7.0 L, Gran % 87.9 H, Lymphocytes % 6.4 L, Monocytes % 5.4, Eosinophils % 0.1 , Basophils % 0.2, Absolute Granulocytes 17.1 H, Segmented Neutrophils 87 H, Absolute Lymphocytes 1.2, Lymphocytes 10 L, Monocytes 3, Absolute Monocytes 1.0 H, Absolute Eosinophils 0, Absolute Basophils 0, Platelet Estimate INCREASED, Normocytic RBCs VERIFIED, Normochromic RBCs VERIFIED Microbiology 03/17 1630 URINE ROUT: Legionella Antigen - COMP 03/17 1630 URINE ROUT: Streptococcus pneumoniae Antigen (M - COMP 03/17 1630 URINE ROUT: Urine Culture - RECD 03/17 1625 BLOOD: Blood Culture - RECD 03/17 1620 BLOOD: Blood Culture - RECD 03/17 1615 NASOPHARYN: Influenza Virus A & B Rapid Smear - COMP Initial ED EKG: SINUS TACHYCARDIA , NO CHANGE Prior EKG: unchanged Departure Departure Disposition: STILL A PATIENT Condition: Stable Clinical Impression Primary Impression: Dyspnea Secondary Impressions: Hypoxia Referrals: Zoran Lainez MD (PCP/Family) Departure Forms: Customer Survey General Discharge Information Observation Note Spoke With: Zoran Lainez MD Physician Advisor Notified: COREY HSIEH DO Place Patient In: Non-ED OBS Care Area Rationale for Observation: My rational for observation is as follows [the patient needs observation for repeat CAT scan imaging, pulmonary consultation, likely IV steroids and IV antibiotics, oxygen therapy]. Critical Care Note Critical Care Note Critical Care Time: non-applicable
[2018-03-17] MEDS ORDERED: METOPROLOL TART25 M1 PO (10:21)
[2018-03-17] MEDS ORDERED: VITAMIN D32000 UNI1 PO (10:22)
[2018-03-17] MEDS ORDERED: LEVOTHYROXINE125 MCG PO (10:22)
[2018-03-17 10:58] LABS: ABSOLUTE BASOPHIL COUNT 0 /CUMM (0.0-0.2); ABSOLUTE EOSINOPHIL COUNT 0 /CUMM (0.0-0.7); ABSOLUTE GRANULOCYTE CT 17.1 /CUMM (1.4-6.5); ABSOLUTE LYMPH COUNT 1.2 /CUMM (1.2-3.4); BASOPHIL % 0.2 % (0.0-2.0); EOSINOPHIL % 0.1 % (0-5); GRANULOCYTE % 87.9 % (42.2-75.2); HEMATOCRIT 34.3 % (37-47); MEAN CORPUSCULAR HGB 27.9 PG (27.0-31.0); MEAN CORPUSCULAR HGB CONC 32.5 G/DL (33.0-37.0); MEAN CORPUSCULAR VOLUME 85.8 FL (81.0-99.0); PLATELET COUNT 970 /CUMM (130-400); RBC DISTRIBUTION WIDTH 15.2 % (11.5-14.5)
[2018-03-17 10:59] LABS: WHITE BLOOD CELL COUNT 19.4 /CUMM (4.8-10.8)
--- NOTE | 2018-03-17 11:43 | RADIOLOGY REPORT ---
EXAMINATION: XR PORTABLE CHEST CLINICAL INFORMATION: Shortness of breath COMPARISON: Chest radiograph from 03/09/2018. CTA chest 03/07/2018 TECHNIQUE: Portable frontal view of the chest was obtained. FINDINGS: Improving aeration of the left lung base with mild atelectasis or small effusion persisting. Cardiac silhouette is not well assessed due to technique but appears prominent. No pneumothorax. No acute osseous abnormality. IMPRESSION: Improving aeration of the left lung base with mild atelectasis or small effusion persisting.
--- NOTE | 2018-03-17 14:54 | History & Physical ---
See Addendum Gaby Armas MD 03/17/18 9424: General Information and HPI MD Statement: I have seen and personally examined DORIS RESENDEZ and documented this H&P. The patient is a 87 year old F who presented with a patient stated chief complaint of [difficulty in breathing]. Source of Information: patient, family Exam Limitations: no limitations History of Present Illness: 87-year-old lady with past medical history of hypothyroidism, hypertension, hyperlipidemia, osteoarthritis, treated for pericarditis in 2 weeks ago came to [place] ER with complaints of cough, chest pain, shortness of breath for the past 1 week.Patient recently admitted in February 2018 for shortness of breath. Patient was discharged on 03/11/2018 with ibuprofen for her pericarditis. Initially she felt okay, but later she developed cough with white sputum production. The cough got worse which was associated with 10 x 10 chest pain with no radiation. Chest pain got relieved when the cough subsided.She said her chest pain got better with heating pad. She also endorses this chest pain was similar to the one she had last admission. She saw Dr. Berger for her pericarditis who suggested to continue ibuprofen until March 28. He also reduced her metoprolol dose from 50-25 mg. No history of any chills, fever, nausea, vomiting, abdominal pain, blood in urine, bloody bowel movement, headache, weakness, fall. At baseline patient sleeps with 3 pillow in her bed but lately she has been using couch and recliner because of her cough and difficulty in breathing. She ambulates with walker at home. She felt more winded recently. Patient had fall in December 2017. During last admission patient was Initially treated for pneumonia but eventually discontinued antibiotics. CT ruled out pulmonary ball this him. She also had elevated ESR and C-reactive protein during the same admission. Her rheumatoid factor was found to be positive. She also had pericardial rub. She was not on any home oxygen but during the last admission she required 4 L and eventually wean her off. Patient was treated for potential pericarditis with ibuprofen. She also had elevated liver enzymes [postcholecystectomy]. Allergies/Medications Allergies: Coded Allergies: NO KNOWN ALLERGIES (04/10/11) Home Med list Alendronate Sodium 70 MG TABLET 1 TAB PO QSUN OSTEOPOROSIS (Reported) in the morning, at least 30 minutes before the first food, beverage, or medication of the day Aspirin (Ecotrin*) 81 MG TABLET.DR 1 TAB PO DAILY HEART/BLOOD (Reported) Cholecalciferol (Vitamin D3) (Vitamin D3) 2,000 UNIT TABLET 1 TAB PO DAILY VITAMIN SUPPORT (Reported) Ezetimibe (Zetia) 10 MG TABLET 1 TAB PO DAILY HIGH CHOLESTROL (Reported) Hydrochlorothiazide 12.5 MG CAPSULE 1 CAP PO DAILY HIGH BLOOD PRESSURE ( Reported) Levothyroxine Sodium 125 MCG TABLET 0.5 TAB PO DAILY AC THYROID (Reported) Metoprolol Tartrate 25 MG TABLET 1 TAB PO BID HEART (Reported) Simvastatin (Simvastatin*) 40 MG TABLET 1 TAB PO QHS CHOLESTEROL (Reported) Compliance With Home Meds: GOOD Past History Travel History Traveled to [place] past 21 day No Medical History Neurological: NONE EENT: NONE Cardiovascular: hypertension, hyperlipidemia Respiratory: NONE Gastrointestinal: NONE Hepatic: NONE Renal: NONE Musculoskeletal: osteoarthritis Psychiatric: NONE Endocrine: NONE Blood Disorders: NONE Cancer(s): NONE 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 BROTHER (Myocardial infarction). Psychosocial History Where do you live? Home Who Do You Live With? self Services at Home: None Primary Language: Luxembourger Smoking Status: Former Smoker ETOH Use: denies use Functional Ability ADLs Independent: dressing, eating, toileting, bathing. Ambulation: walker IADLs Independent: housework, finances, telephone, medication admin. Needs Assist: shopping, transportation. Review of Systems Review of Systems Constitutional: Reports: no symptoms. Cardiovascular: Reports: chest pain. Respiratory: Reports: cough, short of breath. GI: Reports: no symptoms. Genitourinary: Reports: no symptoms. Musculoskeletal: Reports: no symptoms. Skin: Reports: no symptoms. Exam & Diagnostic Data Last 24 Hrs of Vital Signs/I&O Vital Signs Date Time Temp Pulse Resp B/P B/P Pulse O2 O2 Flow FiO2 Mean Ox Delivery Rate 03/17 1704 97.5 99 20 112/64 92 Nasal 3.0L Cannula 03/17 1439 97.6 91 18 96/53 92 Nasal 2.0L Cannula 03/17 1314 98.0 94 20 96/53 93 Nasal 2.0L Cannula 03/17 1220 119 108/57 03/17 1146 98.6 03/17 1139 98.6 119 20 108/57 91 Nasal 2.0L Cannula 03/17 1124 99.1 03/17 1102 99.1 122 16 92 Room Air 03/17 1038 91 03/17 0933 91 Room Air 03/17 0923 99.0 120 20 122/73 90 Room Air Intake & Output 03/17 1600 03/17 0800 03/17 0000 Intake Total Output Total Balance Patient 128 lb Weight Physical Exam General Appearance Alert, Oriented X3, Cooperative, No Acute Distress Skin face bilateral rash Neck Supple, No JVD, No thryomegaly, +2 Carotid Pulse wo Bruit Cardiovascular Regular Rate, Normal S1, Normal S2, No Murmurs Lungs increased breath sounds on the right side Abdomen Soft, No Tenderness, No Hepatospenomegaly Neurological Normal Speech, Strength at 5/5 X4 Ext, Normal Tone, Sensation Intact Diagnostic Data EKG Results Tachycardia MI prolongation 188 CXR Results Chest x-ray Improving aeration of the left lung base with mild atelectasis or small effusion persisting Assessment/Plan Assessment: 87 YO F ex-smoker with PMH of HTN, HLD and osteoarthritis came to ED with chief complaint of cough, shortness of breath chest pain., Admission vitals Pulse rate 119---> 91, temperature 90.8, blood pressure 108/57, on 2 L of oxygen via nasal cannula, saturation 93 Admission labs WBC 19.4, granulocytes 87.9, hemoglobin 11.1, platelet count 970 Chest x-ray Improving aeration of the left lung base with mild atelectasis or small effusion persisting Chest CT 03/07/2018 New small pleural effusion with bibasilar atelectasis [id number] pericardial effusion new Centrilobular pulmonary emphysema [place] Echocardiogram 03/07/2018 EF 70% with no obvious regional wall motion abnormality. Assessment and plan 1. Cough, shortness of breath, chest pain-possible differential continuing pericarditis, emphysema [former smoker] pneumonia, influenza, neoplastic [ patient has high platelet count], autoimmune disease [RA, SLE], drug-induced, and hypothyroidism. Patient responded to steroids. Previous echo negative for any heart failure. Ejection fraction 70% with no regional wall motion abnormality. Patient though responding to ibuprofen she still has chest pain while coughing. No history of any recent infection. Patient was treated with antibiotics last time in view of suspected pneumonia. Of note patient was positive for rheumatoid factor and had elevated ESR and C-reactive protein last admission. We will order proBNP, AMA, anti-smooth antibodies, ESR, C-reactive protein, CT chest, troponin, blood culture, urine culture. Off note patient feels comfortable after starting on 2 L of nasal oxygen. Cardiology and pulmonology consult. We will continue ibuprofen, methylprednisone, Synthyroid, aspirin. As Ranked By This Provider Problem List: 1. Chest pain 2. Pericardial effusion 3. Pneumonia Core Measures/Misc (07/27) Acute Coronary Syndrome ACS Diagnosis: No Congestive Heart Failure Congestive Heart Failure Diagnosis No Cerebrovascular Accident CVA/TIA Diagnosis: No VTE (View Protocol) VTE Risk Factors Age>40 No Mechanical VTE Prophylaxis d/t Other No VTE Pharm Prophylaxis d/t Other Sepsis (View protocol) Sepsis Present: No Vik Russell 03/17/18 1615: Resident Review Statement Resident Statement: examined this patient, discussed with test engineering intern, agreed with test engineering intern, discussed with family, reviewed images, amended to note Other Findings: 87 year old woman with recent diagnosis of pericarditis discharged on NSAID (03/11) with some initial improvement, subsequently developed cough, persistent pleuritic chest pain, worsening shortness of breathchest tightness. 1. Pleuritic/positional chest discomfort with pericardial effusion noted on chest CT done on last admission; marked leukocytosis. Cont Ibuprofen. Repeat CT scan chest to follow up on infection/effusion - pleural and pericardiac. Check another troponin and EKG in am. ProBNP checked, no evidence of HF on exam and bnp >500 is highly non specific for a cardiac decompensation. Her ESR and CRP from previous visit are concerning for connective tissue disorder (her age makes it less likely), especially in the setting of a new facial rash. This may represent a drug induced photosensitivity (from Doxycycline), 03/05/18. ?Pleurisy related to rheumatological process. CT evidence of centrilobular emphysema (last visit), today sxs responding to steroids and breathing treatment. IV steroids as ordered, TRC. Pulkaren bae. Recent hospitalization, ?HCAP, will await CT results. 2. ?HCTZ induced subacute cutaneous lupus erythematous. Not uncommon for HCTZ to cause this. Recommend discontinuing HCTZ. Check anti-histone antibodies. Rheumtology evaluation as an outpatient. Highly doubt adult onset Still's disease; especially in the setting of no peripheral rash and no athralgia. May add Ferritin and TIBC to labs. 3. Marked leukocytosis. Rule out infectious etiologies. 4. Hypertension. Hold HCTZ. Hold other meds for low BP. 5. Hyperlipidemia. Discontinue Simvastatin in a 87 year old woman for risk of non CK elevation myopathy in elderly. Controversial benefit of statins in individuals > 75 years. Consults- Cardio Pulmonary Full code Lovenox for DVT ppx Regular diet
--- NOTE | 2018-03-17 16:55 | CT SCAN REPORT ---
EXAMINATION: CT ANGIOGRAM OF THE CHEST WITH CONTRAST (CT PULMONARY ANGIOGRAM FOR PE) CLINICAL INFORMATION: 87-year-old female with shortness of breath. Reevaluate for pulmonary embolism and follow-up pericardial effusion. Persistent pleuritic chest pain. Evaluate for pulmonary consolidation. COMPARISON: Chest CT from 03/07/2018 and 12/20/2017 TECHNIQUE: Prior to contrast administration, noncontrast localization images were obtained. Subsequently, multidetector volumetric imaging was performed from the thoracic inlet to below the diaphragms following the administration of 95 mL Optiray 320 intravenous contrast. No contrast reaction reported. Sagittal, coronal, and MIP oblique sagittal reformatted images were obtained on the CT workstation, uploaded to PACS, and reviewed. DLP: Total exam dose-length product 229 mGy-cm FINDINGS: QUALITY OF STUDY/CONTRAST BOLUS: Satisfactory. PULMONARY ARTERIES: Pulmonary arteries are normal in size. No embolic filling defects are identified within the main, lobar or segmental vessels. THORACIC AORTA: Mild atherosclerotic calcification of the thoracic aorta without aneurysm or dissection. LUNGS AND PLEURA: Again noted is [id number] centrilobular emphysema. No evidence of pulmonary edema or pneumothorax. Within the posterior segment of the right upper lobe, there is a new region of subtle patchy groundglass opacity and peribronchial reticular opacity. Trace bilateral pleural effusions have decreased in size compared to 03/07/2018. Persistent atelectasis in the dependent aspect of each lower lobe. CARDIOVASCULAR: The heart size is normal. There is mild atherosclerotic calcification of coronary arteries. No inward bowing of the interventricular septum. Small pericardial effusion, decreased compared to 03/07/2018. MEDIASTINUM: The esophagus has normal wall thickness. Thyroid gland is atrophied. No mediastinal mass. LYMPHATICS: No pathologic sized axillary, hilar or mediastinal lymph nodes. UPPER ABDOMEN: No acute findings. Gallbladder is surgically absent. No reflux of contrast into the inferior vena cava. OSSEOUS STRUCTURES: No acute findings in the degenerated T-spine. Bones appear diffusely osteoporotic. No aggressive osseous lesions. IMPRESSION: - No evidence of pulmonary embolism. - Lowycgnl-uw-tiwhgy centrilobular emphysema. - Within the posterior segment of the right upper lobe, there is a new region of subtle, patchy groundglass opacity and peribronchiolar reticular opacity suspicious for a mild pneumonia. - Interval decreased size of bilateral pleural effusions and of the pericardial effusion compared to 03/07/2018.
--- NOTE | 2018-03-17 17:12 | PN- Att Addend ---
Attending Addendum Attending Brief Note Pleasant 87 year old white female just discharged recently from the hospital , once at home continued with some SOB and a cough that got progressively worse making her chest hurt, returns to the ER after treatment and IV steroids feels better, will keep in observation monitor breathing and oxygen saturations C pulmonary consultation. Current Medications Sig/Rose Marie Start time Last Medication Dose Route Stop Time Status Admin Acetaminophen 1,000 MG ONCE ONE 03/17 1115 DC 03/17 IV 03/17 1116 1124 Acetaminophen 0 .STK-MED ONE 03/17 1107 DC IV Albuterol Sulfate 3 ML ONCE ONE 03/17 1030 DC 03/17 INH 03/17 1031 1038 Aspirin Buffered 81 MG DAILY 03/18 900 AC PO Azithromycin 500 MG DAILY 03/17 1552 AC 03/17 Sodium Chloride 250 ML IV 03/21 959 1632 Cholecalciferol 1,000 IU DAILY 03/18 900 AC PO Enoxaparin Sodium 40 MG DAILY 03/18 900 UNVr SC Ezetimibe 10 MG DAILY 03/18 900 AC PO Hydrochlorothiazide 12.5 MG DAILY 03/18 900 CAN PO Ibuprofen 600 MG TID 03/17 2100 UNVr PO Ipratropium [place] 2.5 ML ONCE ONE 03/17 1030 DC 03/17 INH 03/17 1031 1038 Levothyroxine Sodium 0.0625 MG DAILY AC 03/18 700 AC PO Methylprednisolone 40 MG Q12 03/17 2100 AC IV Methylprednisolone 0 .STK-MED ONE 03/17 1041 DC .ROUTE Methylprednisolone 125 MG ONCE ONE 03/17 1030 DC 03/17 IV 03/17 1031 1049 Metoprolol Tartrate 25 MG BID 03/17 2100 AC PO Metoprolol Tartrate 25 MG ONCE ONE 03/17 1200 DC / PO 03/17 1201 1220 Laboratory Tests 03/17/18 1630: Urinalysis LIGHT H, Urine Color YEL, Urine Clarity CLEAR, Urine pH 6.0, Ur Specific [place] 1.020, Urine Protein NEG, Urine Ketones NEG, Urine Nitrite NEG, Urine Bilirubin NEG, Urine Urobilinogen 0.2, Ur Leukocyte Esterase NEG, Ur Microscopic SEDIMENT EXAMINED, Urine RBC 1-3, Urine WBC 1-3 H, Ur Epithelial Cells FEW, Urine Bacteria FEW H, Hyaline Casts RARE H, Urine Mucus MOD H, Urine Hemoglobin SMALL H, Urine Glucose NEG 03/17/18 1030: Anion Gap 15, Estimated GFR > 60, BUN/Creatinine Ratio 17.5, Glucose 96, Calcium 9.1, Total Bilirubin 0.6, AST 20, ALT 31, Alkaline Phosphatase 121, Troponin I < 0.01, Pme-I-Dlzwsonbjuu Pept 710 H, Total Protein 7.0, Albumin 3.7, Globulin 3.3, Albumin/Globulin Ratio 1.1, D-Dimer High Sensitivty 2663 H, CBC w Diff MAN DIFF ORDERED, RBC 4.00 L, MCV 85.8, MCH 27.9, MCHC 32.5 L, RDW 15.2 H, MPV 7.0 L, Gran % 87.9 H, Lymphocytes % 6.4 L, Monocytes % 5.4, Eosinophils % 0.1 , Basophils % 0.2, Absolute Granulocytes 17.1 H, Segmented Neutrophils 87 H, Absolute Lymphocytes 1.2, Lymphocytes 10 L, Monocytes 3, Absolute Monocytes 1.0 H, Absolute Eosinophils 0, Absolute Basophils 0, Platelet Estimate INCREASED, Normocytic RBCs VERIFIED, Normochromic RBCs VERIFIED Microbiology 03/17 1630 URINE ROUT: Legionella Antigen - COMP 03/17 163 URINE ROUT: Streptococcus pneumoniae Antigen (M - COMP 03/17 1615 NASOPHARYN: Influenza Virus A & B Rapid Smear - COMP Vital Signs Date Time Temp Pulse Resp B/P B/P Pulse O2 O2 Flow FiO2 Mean Ox Delivery Rate 03/17 1704 97.5 99 20 112/64 92 Nasal 3.0L Cannula 03/17 1439 97.6 91 18 96/53 92 Nasal 2.0L Cannula 03/17 1314 98.0 94 20 96/53 93 Nasal 2.0L Cannula 03/17 1220 119 108/57 03/17 1146 98.6 03/17 1139 98.6 119 20 108/57 91 Nasal 2.0L Cannula 03/17 1124 99.1 03/17 1102 99.1 122 16 92 Room Air 03/17 1038 91 03/17 0933 91 Room Air 03/17 0923 99.0 120 20 122/73 90 Room Air Intake & Output 03/17 1600 Intake Total Output Total Balance Patient 128 lb Weight patient white count high. will monitor.
[2018-03-17 18:32] VITALS: BP 110/62
--- NOTE | 2018-03-17 19:13 | PN- Student ---
Subjective Subjective: Mrs. Mann
--- NOTE | 2018-03-17 20:07 | Cons- Pulmonary ---
General Information and HPI Consulting Request Date of Consult: 03/17/18 Requested By: med team History of Present Illness: 87-year-old lady with past medical history of hypothyroidism, hypertension, hyperlipidemia, osteoarthritis, treated for pericarditis in 2 weeks ago came to [place] ER with complaints of cough, chest pain, shortness of breath for the past 1 week.Patient recently admitted in February 2018 for shortness of breath. Patient was discharged on 03/11/2018 with ibuprofen for her pericarditis. Initially she felt okay, but later she developed cough with white sputum production. The cough got worse which was associated with 10 x 10 chest pain with no radiation. Chest pain got relieved when the cough subsided.She said her chest pain got better with heating pad. She also endorses this chest pain was similar to the one she had last admission. She saw Dr. Berger for her pericarditis who suggested to continue ibuprofen until March 28. He also reduced her metoprolol dose from 50-25 mg. No history of any chills, fever, nausea, vomiting, abdominal pain, blood in urine, bloody bowel movement, headache, weakness, fall. At baseline patient sleeps with 3 pillow in her bed but lately she has been using couch and recliner because of her cough and difficulty in breathing. She ambulates with walker at home. She felt more winded recently. Patient had fall in December 2017. During last admission patient was Initially treated for pneumonia but eventually discontinued antibiotics. CT ruled out pulmonary emboli this him. She also had elevated ESR and C-reactive protein during the same admission. Her rheumatoid factor was found to be positive. She also had pericardial rub. She was not on any home oxygen but during the last admission she required 4 L and eventually wean her off. Patient was treated for potential pericarditis with ibuprofen. She also had elevated liver enzymes [postcholecystectomy]. Reports: no symptoms. Cardiovascular: Reports: chest pain. Respiratory: Reports: cough, short of breath. GI: Reports: no symptoms. Genitourinary: Reports: no symptoms. Musculoskeletal: Reports: no symptoms. Skin: Reports: no symptoms. Allergies/Medications Allergies: Coded Allergies: NO KNOWN ALLERGIES (04/10/11) Home Med List: Alendronate Sodium 70 MG TABLET 1 TAB PO QSUN OSTEOPOROSIS (Reported) in the morning, at least 30 minutes before the first food, beverage, or medication of the day Aspirin (Ecotrin*) 81 MG TABLET.DR 1 TAB PO DAILY HEART/BLOOD (Reported) Cefuroxime Axetil (Cefuroxime) 250 MG TABLET 500 MG PO Q12 pneumonitis Cholecalciferol (Vitamin D3) (Vitamin D3) 2,000 UNIT TABLET 1 TAB PO DAILY VITAMIN SUPPORT (Reported) Colchicine 0.6 MG TABLET 300 MCG PO BID heart Ezetimibe (Zetia) 10 MG TABLET 1 TAB PO DAILY HIGH CHOLESTROL (Reported) Hydrochlorothiazide 12.5 MG CAPSULE 1 CAP PO DAILY HIGH BLOOD PRESSURE ( Reported) Levothyroxine Sodium 125 MCG TABLET 0.5 TAB PO DAILY AC THYROID (Reported) Metoprolol Tartrate 25 MG TABLET 1 TAB PO BID HEART (Reported) Prednisone 10 MG TABLET 1 TAB PO DAILY heart .. Simvastatin (Simvastatin*) 40 MG TABLET 1 TAB PO QHS CHOLESTEROL (Reported) Review of Systems Review of Systems Constitutional: Reports: see HPI. 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 BROTHER (Myocardial infarction). Psychosocial History Where Do You Live? Home Who Do You Live With? self Services at Home: None Primary Language: Irish Smoking Status: Former Smoker ETOH Use: denies use Functional Ability ADLs Independent: dressing, eating, toileting, bathing. Ambulation: walker IADLs Independent: housework, finances, telephone, medication admin. Needs Assist: shopping, transportation. ECHO Results (as available) EF% 70 Exam & Diagnostic Data Last 24 Hrs of Vital Signs/I&O Vital Signs Date Time Temp Pulse Resp B/P B/P Pulse O2 O2 Flow FiO2 Mean Ox Delivery Rate 03/19 902 94 Room Air 03/19 08 80 110/68 03/19 08 94 Room Air Room Air 03/19 08 94 Room Air Room Air 03/19 0641 97.8 81 18 106/66 93 03/19 0000 Nasal 1.0L Cannula 03/18 2220 103 100/60 03/18 2210 97.6 103 20 100/60 93 Nasal 2.5L Cannula 03/18 1946 92 Nasal 2.0L Cannula 03/18 1639 97.8 03/18 1600 94 Nasal 1.0L Cannula 03/18 1359 97.4 91 18 100/60 94 Nasal 1.0L Cannula Last 48 Hrs of Labs/Michael: Laboratory Tests 03/19/18 0620: Anion Gap 12, Estimated GFR > 60, BUN/Creatinine Ratio 35.0 H, CBC w Diff NO MAN DIFF REQ, RBC 3.39 L, MCV 86.1, MCH 28.2, MCHC 32.7 L, RDW 15.2 H, MPV 7.4, Gran % 87.4 H, Lymphocytes % 7.6 L, Monocytes % 4.9, Eosinophils % 0.1, Basophils % 0, Absolute Granulocytes 11.7 H, Absolute Lymphocytes 1.0 L, Absolute Monocytes 0.7 H, Absolute Eosinophils 0, Absolute Basophils 0 03/18/18 1454: C-React Prot High Sens Cancelled, ESR [place] Cancelled 03/18/18 1120: Anion Gap 18 H, Estimated GFR 59 L, BUN/Creatinine Ratio 28.9 H, TIBC 300, Ferritin 151.0, Lactate Dehydrogenase 574, C-Reactive Prot, Quant > 9.0 H, C- React Prot High Sens > 15.0 H, Vitamin B12 718, Folate 13.6, CBC w Diff NO MAN DIFF REQ, RBC 3.66 L, MCV 85.9, MCH 28.2, MCHC 32.8 L, RDW 15.2 H, MPV 7.4, Gran % 91.0 H, Lymphocytes % 5.1 L, Monocytes % 3.7, Eosinophils % 0.1, Basophils % 0.1, Absolute Granulocytes 16.8 H, Absolute Lymphocytes 0.9 L, Absolute Monocytes 0.7 H, Absolute Eosinophils 0, Absolute Basophils 0, ESR [place] 40 H 03/18/18 0800: Haptoglobin Pending 03/18/18 0725: Ref Lab Test Result Pending 03/17/18 1630: Urinalysis LIGHT H, Urine Color YEL, Urine Clarity CLEAR, Urine pH 6.0, Ur Specific [place] 1.020, Urine Protein NEG, Urine Ketones NEG, Urine Nitrite NEG, Urine Bilirubin NEG, Urine Urobilinogen 0.2, Ur Leukocyte Esterase NEG, Ur Microscopic SEDIMENT EXAMINED, Urine RBC 1-3, Urine WBC 1-3 H, Ur Epithelial Cells FEW, Urine Bacteria FEW H, Hyaline Casts RARE H, Urine Mucus MOD H, Urine Hemoglobin SMALL H, Urine Glucose NEG Microbiology 03/17 1630 URINE ROUT: Legionella Antigen - COMP 03/17 1630 URINE ROUT: Streptococcus pneumoniae Antigen (M - COMP 03/17 1615 NASOPHARYN: Influenza Virus A & B Rapid Smear - COMP Assessment/Plan Impression/Plan: General Appearance Alert, Oriented X3, Cooperative, No Acute Distress Skin face bilateral rash Neck Supple, No JVD, No thryomegaly, +2 Carotid Pulse wo Bruit Cardiovascular Regular Rate, Normal S1, Normal S2, No Murmurs Lungs increased breath sounds on the right side Abdomen Soft, No Tenderness, No Hepatospenomegaly Neurological Normal Speech, Strength at 5/5 X4 Ext, Normal Tone, Sensation Intact CT chest IMPRESSION: - No evidence of pulmonary embolism. - [id number] centrilobular emphysema. - Within the posterior segment of the right upper lobe, there is a new region of subtle, patchy groundglass opacity and peribronchiolar reticular opacity suspicious for a mild pneumonia. - Interval decreased size of bilateral pleural effusions and of the pericardial effusion compared to 03/07/2018. DICTATED BY: Jonatan Garner MD DATE/TIME DICTATED:03/17/18 / 1641 This is a gentleman with radiological evidence suggestive of significant emphysema, recent chest discomfort and pain and clinical evidence suggestive of pericarditis with pericardial effusion recently treated with nonsteroidal anti- inflammatory, previous history of hypertension, hyperlipidemia, significant smoking, previous NSVT versus atrial fibrillation, markedly elevated CRP and ESR with clinical evidence suggestive of serositis, previous history of mildly elevated rheumatoid factor with no clinical evidence osteoarthritis, now has Shortness of breath with chest discomfort in those lady with previous history of smoking and significant COPD. Patient does not seem to be actively wheezing however mild COPD exacerbation cannot be ruled out Chest CT scan suggestive 01 segmental infiltrate suggestive of probable pneumonitis. Needs to be treated with antibiotics Recent pericardial effusion, pericarditis with thickened pericardium with elevated ESR and CRP with borderline high rheumatoid factor with no clinical evidence suggestive of rheumatoid arthritis. Significant serositis needs to be ruled out. Patient is now on anti-inflammatory. Slowly progressive thrombocytosis appears to be due to reactionary which needs to be followed RECOMMENDATIONS Continue steroids and reduce it to 60 mg daily can switch to by mouth prednisone Start ceftriaxone and Cipro for now Continue other medications as noted Start colchicine 0.6 mg twice a day Reduce ibuprofen to 400 mg twice a day Continue omeprazole Consider discontinuing NSAIDs Consult Acknowledgment - Thank you for your consult request.
[2018-03-17 22:30] VITALS: BP 104/62
[2018-03-18 05:57] VITALS: BP 112/64
[2018-03-18 09:45] VITALS: BP 112/60
[2018-03-18 12:31] LABS: ABSOLUTE BASOPHIL COUNT 0 /CUMM (0.0-0.2); ABSOLUTE EOSINOPHIL COUNT 0 /CUMM (0.0-0.7); ABSOLUTE GRANULOCYTE CT 16.8 /CUMM (1.4-6.5); ABSOLUTE LYMPH COUNT 0.9 /CUMM (1.2-3.4); ABSOLUTE MONOCYTE COUNT 0.7 /CUMM (0.10-0.60); BASOPHIL % 0.1 % (0.0-2.0); EOSINOPHIL % 0.1 % (0-5); HEMATOCRIT 31.5 % (37-47); MEAN CORPUSCULAR HGB 28.2 PG (27.0-31.0); MEAN CORPUSCULAR HGB CONC 32.8 G/DL (33.0-37.0); MEAN CORPUSCULAR VOLUME 85.9 FL (81.0-99.0); MEAN PLATELET VOLUME 7.4 FL (7.4-10.4); RBC DISTRIBUTION WIDTH 15.2 % (11.5-14.5); RED BLOOD CELL CT 3.66 /CUMM (4.20-5.40); WHITE BLOOD CELL COUNT 18.5 /CUMM (4.8-10.8)
[2018-03-18 13:01] LABS: PLATELET COUNT 926 /CUMM (130-400)
--- NOTE | 2018-03-18 13:42 | PN-Observation ---
Observation Note Observation Note _ I have personally examined DORIS RESENDEZ. her disposition is uncertain at this time. Before a determination can be made, she requires continued observation for the following reasons [pneumonia]. Assessment/Plan Medical Assessment: 87 YO F ex-smoker with PMH of HTN, HLD and osteoarthritis came to ED with chief complaint of cough, shortness of breath chest pain., Chest x-ray Improving aeration of the left lung base with mild atelectasis or small effusion persisting Chest CT 03/07/2018 New small pleural effusion with bibasilar atelectasis [id number] pericardial effusion new Centrilobular pulmonary emphysema [place] Echocardiogram 03/07/2018 EF 70% with no obvious regional wall motion abnormality. Assessment and plan 1. Pericarditis 2. Pneumonia 3. Reactive thrombocythemia 1. Cough, shortness of breath, chest pain- Patient has a new posterior segment of the right upper lobe groundglass opacity. We will treat her with antibiotics per pulmonology. Patient is on ceftriaxone and azithromycin we will switch that to Ceftin 500 twice a day. Patient is responding to steroids for her pericarditis and also will discontinue NSAIDs. Pt has reactive thrombocythemia, discussed with Dr. Hernandez over the phone who suggested outpt follow up. we will do anemia workup now. Previous echo negative for any heart failure. Ejection fraction 70% with no regional wall motion abnormality. We will repeat echocardiogram as per cardiology. No history of any recent infection. Patient was treated with antibiotics last time in view of suspected pneumonia. Of note patient was positive for rheumatoid factor and had elevated ESR and C-reactive protein last admission. We will order proBNP, AMA, anti-smooth antibodies, ESR, C-reactive protein, CT chest, troponin, blood culture, urine culture. Off note patient feels comfortable after starting on 2 L of nasal oxygen. We will wean off her oxygen. Cardiology consult. Pulmonology follow-up. We will continue colchicine, methylprednisone, Synthyroid, aspirin. Code-full code Diet-regular diet Problem List: 1. Pneumonia 2. Pericardial effusion DVT/Prophylaxis: mechanical, pharmacological Subjective Follow-up For: Pericarditis Pneumonia Complaints: no complaints Subjective: Patient seen and examined at bedside. No overnight events. She says she feels comfortable with the oxygen on. No more chest pain. She denies shortness of breath, weakness. Review of Systems Constitutional: Reports: no symptoms. Cardiovascular: Reports: no symptoms. Respiratory: Reports: no symptoms. Gastrointestinal: Reports: no symptoms. Genitourinary: Reports: no symptoms. Objective Last 24 Hrs of Vital Signs/I&O Vital Signs Date Time Temp Pulse Resp B/P B/P Pulse O2 O2 Flow FiO2 Mean Ox Delivery Rate 03/18 1359 97.4 91 18 100/60 94 Nasal 1.0L Cannula 03/18 1300 Nasal 1.0L Cannula 03/18 1143 95 Nasal 2.0L Cannula 03/18 1050 94 Nasal 3.0L Cannula 03/18 0945 96 20 112/60 95 Nasal 3.0L Cannula 03/18 0557 98.2 98 20 112/64 94 03/18 0000 Nasal 3.0L Cannula 03/17 2230 97.5 103 104/62 93 Room Air 03/17 2226 96 110/62 03/17 1934 Nasal 4.0L Cannula 03/17 1837 93 Nasal 3.0L Cannula 03/17 1832 96.2 96 18 110/62 93 Nasal 3.0L Cannula 03/17 1704 97.5 99 20 112/64 92 Nasal 3.0L Cannula Intake & Output 03/18 1600 03/18 0800 05 0000 Intake Total 580 300 240 Output Total 200 Balance 580 300 40 Intake, IV 20 Intake, Oral 560 300 240 Number 0 Bowel Movements Output, Urine 200 Patient 128 lb Weight Physical Exam General Appearance: Alert, Oriented X3, Cooperative, No Acute Distress Cardiovascular: Regular Rate, Normal S1, Normal S2, No Murmurs Lungs: Clear to Auscultation Abdomen: Soft, No Tenderness, No Hepatospenomegaly Neurological: Normal Speech, Strength at 5/5 X4 Ext, Normal Tone, Sensation Intact Extremities: No Cyanosis, No Edema, Normal Pulses Current Medications: Current Medications Sig/Rose Marie Start time Last Medication Dose Route Stop Time Status Admin Albuterol Sulfate 3 ML BID 03/17 2100 AC 03/18 INH 1050 Aspirin Buffered 81 MG DAILY 03/18 0900 AC 03/18 PO 0954 Azithromycin 500 MG Q24H 03/18 1630 CAN Sodium Chloride 250 ML IV 03/21 1729 Azithromycin 500 MG DAILY 03/17 1552 DC 03/17 Sodium Chloride 250 ML IV 03/21 0959 1632 Ceftriaxone Sodium 1,000 MG Q24H 03/19 0030 CAN IV Ceftriaxone Sodium 1,000 MG DAILY 03/17 2030 DC 03/18 IV 0022 Cefuroxime Sodium 500 MG Q12 03/18 2100 AC PO Cholecalciferol 1,000 IU DAILY 03/18 900 AC 03/18 PO 0956 Ciprofloxacin 500 MG BID 03/17 2100 DC 03/18 PO 03/2153 Colchicine 300 MCG TIDAC 03/18 1700 UNVr PO Colchicine 300 MCG DAILY 03/18 900 DC 03/18 PO 0954 Colchicine 600 MCG BID 03/17 2100 DC PO Enoxaparin Sodium 40 MG DAILY 03/18 900 AC 03/18 SC 0953 Ezetimibe 10 MG DAILY 03/18 900 AC 03/18 PO 0956 Hydrochlorothiazide 12.5 MG DAILY 03/18 900 CAN PO Ibuprofen 600 MG TID 03/17 2100 DC 03/17 PO 2224 Ibuprofen 400 MG BID 03/17 2100 DC 03/18 PO 0954 Levothyroxine Sodium 0.0625 MG DAILY AC 03/18 700 AC 03/18 PO 0526 Melatonin 3 MG AT BEDTIME 03/17 2215 AC 03/17 PO 2224 Methylprednisolone 40 MG Q12 03/17 2100 DC IV Methylprednisolone 20 MG ONCE ONE 03/17 2030 CAN IV 03/17 2031 Metoprolol Tartrate 25 MG BID 03/17 2100 AC 03/18 PO 0954 Omeprazole 40 MG DAILY AC 03/18 700 AC 03/18 PO 0525 Patient Medication 1 ED ONE ONE 03/185 DC 03/18 Teaching ED 03/18 1216 1217 Prednisone 20 MG DAILY 03/27 900 CAN PO 03/28 901 Prednisone 30 MG DAILY 03/25 900 CAN PO 03/26 901 Prednisone 40 MG DAILY 03/23 900 CAN PO 03/24 901 Prednisone 50 MG DAILY 03/21 900 CAN PO 03/22 901 Prednisone 60 MG DAILY 03/19 900 CAN PO 03/29 859 Prednisone 60 MG DAILY 03/19 900 AC PO 03/20 901 Prednisone 40 MG DAILY 03/19 900 AC PO Prednisone 60 MG DAILY 03/18 900 DC 03/18 PO 0956 Last 24 Hrs of Labs/Mics: Laboratory Tests 03/18/18 1120: Anion Gap 18 H, Estimated GFR 59 L, BUN/Creatinine Ratio 28.9 H, TIBC Pending , Ferritin Pending, Lactate Dehydrogenase 574, Vitamin B12 Pending, Folate Pending, CBC w Diff NO MAN DIFF REQ, RBC 3.66 L, MCV 85.9, MCH 28.2, MCHC 32.8 L, RDW 15.2 H, MPV 7.4, Gran % 91.0 H, Lymphocytes % 5.1 L, Monocytes % 3.7, Eosinophils % 0.1, Basophils % 0.1, Absolute Granulocytes 16.8 H, Absolute Lymphocytes 0.9 L, Absolute Monocytes 0.7 H, Absolute Eosinophils 0, Absolute Basophils 0 03/18/18 0800: Haptoglobin Pending 03/18/18 0725: Ref Lab Test Result Pending 03/17/18 1630: Urinalysis LIGHT H, Urine Color YEL, Urine Clarity CLEAR, Urine pH 6.0, Ur Specific [place] 1.020, Urine Protein NEG, Urine Ketones NEG, Urine Nitrite NEG, Urine Bilirubin NEG, Urine Urobilinogen 0.2, Ur Leukocyte Esterase NEG, Ur Microscopic SEDIMENT EXAMINED, Urine RBC 1-3, Urine WBC 1-3 H, Ur Epithelial Cells FEW, Urine Bacteria FEW H, Hyaline Casts RARE H, Urine Mucus MOD H, Urine Hemoglobin SMALL H, Urine Glucose NEG Microbiology 03/17 163 URINE ROUT: Legionella Antigen - COMP 03/17 163 URINE ROUT: Streptococcus pneumoniae Antigen (M - COMP 03/17 163 URINE ROUT: Urine Culture - RES GRAM POSITIVE COCCI 03/17 162 BLOOD: Blood Culture - RES 03/17 162 BLOOD: Blood Culture - RES 03/17 1615 NASOPHARYN: Influenza Virus A & B Rapid Smear - COMP
--- NOTE | 2018-03-18 13:46 | Cons- Cardiology ---
General Information and HPI Consulting Request Date of Consult: 03/18/18 Requested By: Zoran Lainez MD History of Present Illness: Mica is an 87 year old female who carries a history of hypertension and dyslipidemia. She has kept herself active and can engage in her housework without any symptoms of chest discomfort. She was recently admitted to the hospital with weakness and fatigue as well as chest discomfort with a cough. It was felt that the cough was due to a viral illness and caused a musculoskeletal discomfort in her chest. In consideration of a recurrent cough and shortness of breath this patient returned to the hospital. She reports chest discomfort only at the moment she is coughing and not with changes in position of physical activity. There is no definite orthopnea and no nausea or vomiting. It should be noted that her platelets are hightly elevated. Her last lipid profile is good with an LDL of 93, HDL of 74 and triglycerides of 89. Mica remains on Zetia for her dyslipidemia which is serving her well. On last visit this patient was noted to have slightly abnormal thyroid function tests which improved on latest evaluation. I initially saw this patient for intermittent right sided discomfort accompanied by risk factors and a family history of heart disease. In that setting she was initially risk stratified by a stress test which was negative for myocardial ischemia and showed an EF of 74%. The patient was noted to be tachycardic at times and I therefore started her on a beta kane which she continues to take. 70% with mild tricuspid, trace AI and mild pulmonary hypertension. Allergies/Medications Allergies: Coded Allergies: NO KNOWN ALLERGIES (04/10/11) Home Med List: Alendronate Sodium 70 MG TABLET 1 TAB PO QSUN OSTEOPOROSIS (Reported) in the morning, at least 30 minutes before the first food, beverage, or medication of the day Aspirin (Ecotrin*) 81 MG TABLET.DR 1 TAB PO DAILY HEART/BLOOD (Reported) Cholecalciferol (Vitamin D3) (Vitamin D3) 2,000 UNIT TABLET 1 TAB PO DAILY VITAMIN SUPPORT (Reported) Ezetimibe (Zetia) 10 MG TABLET 1 TAB PO DAILY HIGH CHOLESTROL (Reported) Hydrochlorothiazide 12.5 MG CAPSULE 1 CAP PO DAILY HIGH BLOOD PRESSURE ( Reported) Levothyroxine Sodium 125 MCG TABLET 0.5 TAB PO DAILY AC THYROID (Reported) Metoprolol Tartrate 25 MG TABLET 1 TAB PO BID HEART (Reported) Simvastatin (Simvastatin*) 40 MG TABLET 1 TAB PO QHS CHOLESTEROL (Reported) Review of Systems Review of Systems: A review of systems is unremarkable. 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 BROTHER (Myocardial infarction). Psychosocial History Where Do You Live? Home Who Do You Live With? self Services at Home: None Primary Language: Romansh Smoking Status: Former Smoker ETOH Use: denies use Functional Ability ADLs Independent: dressing, eating, toileting, bathing. Ambulation: walker IADLs Independent: housework, finances, telephone, medication admin. Needs Assist: shopping, transportation. ECHO Results (as available) EF% 70 Exam & Diagnostic Data Vital Signs and I&O Vital Signs Date Time Temp Pulse Resp B/P B/P Pulse O2 O2 Flow FiO2 Mean Ox Delivery Rate 03/18 1143 95 Nasal 2.0L Cannula 03/18 1050 94 Nasal 3.0L Cannula 03/18 0945 96 20 112/60 95 Nasal 3.0L Cannula 03/18 0557 98.2 98 20 112/64 94 03/18 0000 Nasal 3.0L Cannula 03/17 2230 97.5 103 104/62 93 Room Air 03/17 2226 96 110/62 03/17 1934 Nasal 4.0L Cannula 03/17 1837 93 Nasal 3.0L Cannula 03/17 1832 96.2 96 18 110/62 93 Nasal 3.0L Cannula 03/17 1704 97.5 99 20 112/64 92 Nasal 3.0L Cannula 03/17 1439 97.6 91 18 96/53 92 Nasal 2.0L Cannula Intake & Output 03/18 1600 03/18 0800 03/18 0000 03/17 1600 03/17 0800 03/17 0000 Intake Total 300 240 Output Total 200 Balance 300 40 Intake, Oral 300 240 Number 0 Bowel Movements Output, Urine 200 Patient 128 lb 128 lb Weight Physical Exam: General: WD/WN female in NAD; alert and oriented x 3 HEENT: NC/AT, PERRL, EOMI Neck: no JVD, no carotid bruit Heart: RRR with 2/6 systolic murmur at the apex Lungs: no crackles or wheezing Abdomen: soft, NT, +ve bowel sounds Extremties: no edema Assessment/Plan Assessment/Plan * This patient has chest discomfort that is only in the setting of a cough. The chest discomfort has resolved although her cough persists. I suspect she has a bronchitis with musculoskeletal soreness from coughing. I have a very low suspicion of pericarditis but completion of the standard three week course of NSAIDS was reasonable. Her pericardial effusion was trace on her recent prior echo although her CT scan on last visit reported it being larger. Yesterdays CT scan is more in line with the echo results. Please repeat an echo. She which is improving but is not resolved. Her pericardial effusion is trace. Continue antibiotic therapy. Continue NSAIDS to complete three weeks. It is noted that colchicine and steroids have been started which is not unreasonable as long as consideration is given to alternate causes for the patient's general feeling of ill being including fatigue and loss of appetite. 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 Check iron studies and serum haptoglobin and obtain a hematology consult. * Continue Metoprolol at 25mg BID. Consult Acknowledgment - Thank you for your consult request.
[2018-03-18 13:59] VITALS: BP 100/60
--- NOTE | 2018-03-18 19:42 | PN- Pulmonary ---
Subjective HPI/Critical Care Issues: Doing much better Chest pain seems to have resolved Afebrile Cough is improved Laboratory Tests 03/18 03/18 03/18 1454 1120 0800 Chemistry Sodium (137 - 145 mmol/L) 139 Potassium (3.5 - 5.1 mmol/L) 4.0 Chloride (98 - 107 mmol/L) 98 Carbon Dioxide (22 - 30 mmol/L) 23 Anion Gap (5 - 16) 18 H BUN (7 - 17 mg/dL) 26 H Creatinine (0.5 - 1.0 mg/dL) 0.9 Estimated GFR (>60 ml/min) 59 L BUN/Creatinine Ratio (7 - 25 %) 28.9 H TIBC (265 - 497 ug/dL) 300 Ferritin (11.1 - 264 ng/mL) 151.0 Lactate Dehydrogenase (313 - 618 U/L) 574 C-Reactive Prot, Quant (<1.0 mg/dL) > 9.0 H C-React Prot High Sens (1.0 - 3.0 mg/L) Cancelled > 15.0 H Vitamin B12 (239 - 931 pg/mL) 718 Folate (2.76 - 20.0 ng/mL) 13.6 Hematology CBC w Diff NO MAN DIFF REQ WBC (4.8 - 10.8 /CUMM) 18.5 H RBC (4.20 - 5.40 /CUMM) 3.66 L Hgb (12.0 - 16.0 G/DL) 10.3 L Hct (37 - 47 %) 31.5 L MCV (81.0 - 99.0 FL) 85.9 MCH (27.0 - 31.0 PG) 28.2 MCHC (33.0 - 37.0 G/DL) 32.8 L RDW (11.5 - 14.5 %) 15.2 H Plt Count (130 - 400 /CUMM) 926 H MPV (7.4 - 10.4 FL) 7.4 Gran % (42.2 - 75.2 %) 91.0 H Lymphocytes % (20.5 - 51.1 %) 5.1 L Monocytes % (1.7 - 9.3 %) 3.7 Eosinophils % (0 - 5 %) 0.1 Basophils % (0.0 - 2.0 %) 0.1 Absolute Granulocytes (1.4 - 6.5 /CUMM) 16.8 H Absolute Lymphocytes (1.2 - 3.4 /CUMM) 0.9 L Absolute Monocytes (0.10 - 0.60 /CUMM) 0.7 H Absolute Eosinophils (0.0 - 0.7 /CUMM) 0 Absolute Basophils (0.0 - 0.2 /CUMM) 0 ESR Westergren (0 - 20 MM) Cancelled Pending Haptoglobin Pending 03/18 03/17 0725 1630 Miscellaneous Ref Lab Test Result Pending Urines Urinalysis LIGHT H Urine Color (YEL,AMB,STR) YEL Urine Clarity (CLEAR) CLEAR Urine pH (5.0 - 8.0) 6.0 Ur Specific Brandon (1.001 - 1.035) 1.020 Urine Protein (NEG,<30 MG/DL) NEG Urine Ketones (NEG) NEG Urine Nitrite (NEG) NEG Urine Bilirubin (NEG) NEG Urine Urobilinogen (0.1 - 1.0 EU/dl) 0.2 Ur Leukocyte Esterase (NEG) NEG Ur Microscopic SEDIMENT EXAMINED Urine RBC (0 - 5 /HPF) 1-3 Urine WBC (0 - 2 /HPF) 1-3 H Ur Epithelial Cells (NONE,FEW) FEW Urine Bacteria (NEG/NONE) FEW H Hyaline Casts (0/LPF) RARE H Urine Mucus (FEW,NONE) MOD H Urine Hemoglobin (NEG) SMALL H Urine Glucose (N MG/DL) NEG 03/17 1030 Chemistry Sodium (137 - 145 mmol/L) 139 Potassium (3.5 - 5.1 mmol/L) 4.4 Chloride (98 - 107 mmol/L) 98 Carbon Dioxide (22 - 30 mmol/L) 25 Anion Gap (5 - 16) 15 BUN (7 - 17 mg/dL) 14 Creatinine (0.5 - 1.0 mg/dL) 0.8 Estimated GFR (>60 ml/min) > 60 BUN/Creatinine Ratio (7 - 25 %) 17.5 Glucose (65 - 99 mg/dL) 96 Calcium (8.4 - 10.2 mg/dL) 9.1 Total Bilirubin (0.2 - 1.3 mg/dL) 0.6 AST (14 - 36 U/L) 20 ALT (9 - 52 U/L) 31 Alkaline Phosphatase (<127 U/L) 121 Troponin I (< 0.11 ng/ml) < 0.01 [id number]-[id number] Pept (<125 pg/mL) 710 H Total Protein (6.3 - 8.2 g/dL) 7.0 Albumin (3.5 - 5.0 g/dL) 3.7 Globulin (1.9 - 4.2 gm/dL) 3.3 Albumin/Globulin Ratio (1.1 - 2.2 %) 1.1 Coagulation D-Dimer High Sensitivty (0 - 243 ng/ml) 2663 H Hematology CBC w Diff MAN DIFF ORDERED WBC (4.8 - 10.8 /CUMM) 19.4 H RBC (4.20 - 5.40 /CUMM) 4.00 L Hgb (12.0 - 16.0 G/DL) 11.1 L Hct (37 - 47 %) 34.3 L MCV (81.0 - 99.0 FL) 85.8 MCH (27.0 - 31.0 PG) 27.9 MCHC (33.0 - 37.0 G/DL) 32.5 L RDW (11.5 - 14.5 %) 15.2 H Plt Count (130 - 400 /CUMM) 970 H MPV (7.4 - 10.4 FL) 7.0 L Gran % (42.2 - 75.2 %) 87.9 H Lymphocytes % (20.5 - 51.1 %) 6.4 L Monocytes % (1.7 - 9.3 %) 5.4 Eosinophils % (0 - 5 %) 0.1 Basophils % (0.0 - 2.0 %) 0.2 Absolute Granulocytes (1.4 - 6.5 /CUMM) 17.1 H Segmented Neutrophils (42.2 - 75.2 %) 87 H Absolute Lymphocytes (1.2 - 3.4 /CUMM) 1.2 Lymphocytes (20.5 - 51.1 %) 10 L Monocytes (1.7 - 9.3 %) 3 Absolute Monocytes (0.10 - 0.60 /CUMM) 1.0 H Absolute Eosinophils (0.0 - 0.7 /CUMM) 0 Absolute Basophils (0.0 - 0.2 /CUMM) 0 Platelet Estimate (ADEQUATE) INCREASED Normocytic RBCs VERIFIED Normochromic RBCs VERIFIED Microbiology Date/Time Procedure - Status Source Growth 03/17 163 Legionella Antigen - COMP URINE ROUT 03/17 1630 Streptococcus pneumoniae Antigen (M - COMP URINE ROUT 03/17 1630 Urine Culture - RES URINE ROUT GRAM POSITIVE COCCI 03/17 1625 Blood Culture - RES BLOOD 03/17 1620 Blood Culture - RES BLOOD 03/17 1615 Influenza Virus A & B Rapid Smear - COMP NASOPHARYN Objective Current Medications: Current Medications Sig/Rose Marie Start time Last Medication Dose Route Stop Time Status Admin Albuterol Sulfate 3 ML BID 03/17 2100 AC 03/18 INH 1050 Aspirin Buffered 81 MG DAILY 03/18 900 AC 03/18 PO 0954 Azithromycin 500 MG Q24H 03/18 1630 CAN Sodium Chloride 250 ML IV 03/21 1729 Azithromycin 500 MG DAILY 03/17 1552 DC 03/17 Sodium Chloride 250 ML IV 03/21 959 1632 Ceftriaxone Sodium 1,000 MG Q24H 03/19 0030 CAN IV Ceftriaxone Sodium 1,000 MG DAILY 03/17 2030 DC 03/18 IV 0022 Cefuroxime Sodium 500 MG Q12 03/18 2100 AC PO Cholecalciferol 1,000 IU DAILY 03/18 900 AC 03/18 PO 0956 Ciprofloxacin 500 MG BID 03/17 2100 DC 03/18 PO 03/21 2059 0953 Colchicine 300 MCG TID 03/18 2100 AC PO Colchicine 300 MCG DAILY 03/18 900 DC 03/18 PO 0954 Colchicine 600 MCG BID 03/17 2100 DC PO Enoxaparin Sodium 40 MG DAILY 03/18 900 AC 03/18 SC 0953 Ezetimibe 10 MG DAILY 03/18 900 AC 03/18 PO 0956 Ibuprofen 600 MG TID 03/17 2100 DC 03/17 PO 2224 Ibuprofen 400 MG BID 03/17 2100 DC 03/18 PO 0954 Levothyroxine Sodium 0.0625 MG DAILY AC 03/18 700 AC 03/18 PO 0526 Melatonin 3 MG AT BEDTIME 03/17 2215 AC 03/17 PO 2224 Methylprednisolone 40 MG Q12 03/17 2100 DC IV Methylprednisolone 20 MG ONCE ONE 03/17 2030 CAN IV 03/17 2031 Metoprolol Tartrate 25 MG BID 03/17 2100 AC 03/18 PO 0954 Omeprazole 40 MG DAILY AC 03/18 700 AC 03/18 PO 0525 Patient Medication 1 ED ONE ONE 03/18 1215 DC 03/18 Teaching ED 03/18 1216 1217 Prednisone 20 MG DAILY 03/27 900 CAN PO 03/28 901 Prednisone 30 MG DAILY 03/25 900 CAN PO 03/26 901 Prednisone 40 MG DAILY 03/23 900 CAN PO 03/24 901 Prednisone 50 MG DAILY 03/21 900 CAN PO 03/22 901 Prednisone 60 MG DAILY 03/19 900 CAN PO 03/29 859 Prednisone 60 MG DAILY 03/19 900 CAN PO 03/20 901 Prednisone 40 MG DAILY 03/19 900 AC PO Prednisone 60 MG DAILY 03/18 900 DC 03/18 PO 0956 Vital Signs & I&O Last 24 Hrs of Vitals and I&O: Vital Signs Date Time Temp Pulse Resp B/P B/P Pulse O2 O2 Flow FiO2 Mean Ox Delivery Rate 03/18 1639 97.8 03/18 1600 94 Nasal 1.0L Cannula 03/18 1359 97.4 91 18 100/60 94 Nasal 1.0L Cannula 03/18 1300 Nasal 1.0L Cannula 03/18 1143 95 Nasal 2.0L Cannula 03/18 1050 94 Nasal 3.0L Cannula 03/18 0945 96 20 112/60 95 Nasal 3.0L Cannula 03/18 0557 98.2 98 20 112/64 94 03/18 0000 Nasal 3.0L Cannula 03/17 2230 97.5 103 104/62 93 Room Air 03/17 2226 96 110/62 Intake & Output 03/18 1600 03/18 0800 03/18 0000 Intake Total 580 300 240 Output Total 200 Balance 580 300 40 Intake, IV 20 Intake, Oral 560 300 240 Number 0 Bowel Movements Output, Urine 200 Patient 128 lb Weight Impression/Plan Impression/Plan Impression/Plan: General Appearance Alert, Oriented X3, Cooperative, No Acute Distress Skin face bilateral rash Neck Supple, No JVD, No thryomegaly, +2 Carotid Pulse wo Bruit Cardiovascular Regular Rate, Normal S1, Normal S2, No Murmurs Lungs increased breath sounds on the right side Abdomen Soft, No Tenderness, No Hepatospenomegaly Neurological Normal Speech, Strength at 5/5 X4 Ext, Normal Tone, Sensation Intact CT chest IMPRESSION: - No evidence of pulmonary embolism. - [id number] centrilobular emphysema. - Within the posterior segment of the right upper lobe, there is a new region of subtle, patchy groundglass opacity and peribronchiolar reticular opacity suspicious for a mild pneumonia. - Interval decreased size of bilateral pleural effusions and of the pericardial effusion compared to 03/07/2018. DICTATED BY: Jonatan Garner MD DATE/TIME DICTATED:03/17/181640 This is a lady with radiological evidence suggestive of significant emphysema, recent chest discomfort and pain and clinical evidence suggestive of pericarditis with pericardial effusion recently treated with nonsteroidal anti- inflammatory, previous history of hypertension, hyperlipidemia, significant smoking, previous NSVT versus atrial fibrillation, markedly elevated CRP and ESR with clinical evidence suggestive of serositis, previous history of mildly elevated rheumatoid factor with no clinical evidence osteoarthritis, now has * Shortness of breath with chest discomfort in those lady with previous history of smoking and significant COPD. Patient does not seem to be actively wheezing however mild COPD exacerbation cannot be ruled out * Chest CT scan suggestive one segmental infiltrate suggestive of probable pneumonitis. Needs to be treated with antibiotics * Recent pericardial effusion, pericarditis with thickened pericardium with elevated ESR and CRP with borderline high rheumatoid factor with no clinical evidence suggestive of rheumatoid arthritis. Significant serositis needs to be ruled out. Patient is now on anti-inflammatory. * Slowly progressive thrombocytosis appears to be due to reactionary which needs to be followed RECOMMENDATIONS 40 mg prednisone and taper over 2 weeks Changed to by mouth Ceftin twice a day for total of 5 days Continue other medications as noted Start colchicine 0.6 mg twice a day, if tolerated can increase to 3 times a day Discontinue NSAIDs Continue omeprazole Okay to discharge soon
[2018-03-18 22:10] VITALS: BP 100/60
[2018-03-19 06:41] VITALS: BP 106/66
[2018-03-19 07:38] LABS: ABSOLUTE BASOPHIL COUNT 0 /CUMM (0.0-0.2); ABSOLUTE EOSINOPHIL COUNT 0 /CUMM (0.0-0.7); ABSOLUTE GRANULOCYTE CT 11.7 /CUMM (1.4-6.5); ABSOLUTE MONOCYTE COUNT 0.7 /CUMM (0.10-0.60); BASOPHIL % 0 % (0.0-2.0); EOSINOPHIL % 0.1 % (0-5); GRANULOCYTE % 87.4 % (42.2-75.2); HEMATOCRIT 29.2 % (37-47); MEAN CORPUSCULAR HGB 28.2 PG (27.0-31.0); MEAN CORPUSCULAR HGB CONC 32.7 G/DL (33.0-37.0); MEAN CORPUSCULAR VOLUME 86.1 FL (81.0-99.0); MEAN PLATELET VOLUME 7.4 FL (7.4-10.4); PLATELET COUNT 884 /CUMM (130-400); RBC DISTRIBUTION WIDTH 15.2 % (11.5-14.5); RED BLOOD CELL CT 3.39 /CUMM (4.20-5.40); WHITE BLOOD CELL COUNT 13.3 /CUMM (4.8-10.8)
--- NOTE | 2018-03-19 08:19 | PN-Observation ---
Observation Note Observation Note _ I have personally examined DORIS RESENDEZ. her disposition is uncertain at this time. Before a determination can be made, she requires continued observation for the following reasons [chest pain, shortness of breath]. Assessment/Plan Medical Assessment: 87 YO F ex-smoker with PMH of HTN, HLD and osteoarthritis came to ED with chief complaint of cough, shortness of breath chest pain., Chest x-ray Improving aeration of the left lung base with mild atelectasis or small effusion persisting Chest CT 03/07/2018 New small pleural effusion with bibasilar atelectasis [id number] pericardial effusion new Centrilobular pulmonary emphysema [place] Echocardiogram 03/07/2018 EF 70% with no obvious regional wall motion abnormality. Assessment and plan 1. Pericarditis 2. Pneumonia 3. Reactive thrombocythemia 1. Cough, shortness of breath, chest pain - Patient has a new posterior segment of the right upper lobe groundglass opacity. Patient being treated for pneumonitis with Ceftin. Will continue Ceftin for 4 more days. Patient is being treated with prednisone and colchicine for suspected pericarditis. We'll continue colchicine for 4 more weeks. Patient and her family agrees with the plan. This was discussed with Dr. Campos and Dr. Lainez. Patient will be seen by Dr. Berger today. Patient is a possible discharge today. Patient got her echocardiogram done and awaiting reports. Patient has an ESR of 40 and C- reactive protein of 9. Patient still on 1 L of oxygen. We will try to wean her off. At rest her saturation is 90%. Patient seen by physical therapy was suggested home self care. Code-full code Diet-regular diet Problem List: 1. Pneumonitis 2. Pericardial effusion Subjective Follow-up For: Pneumonitis Pericardial effusion Subjective: Patient seen and examined at bedside. No overnight events. She says she feels comfortable with the oxygen on. No more chest pain. She denies shortness of breath, weakness. Review of Systems Constitutional: Reports: no symptoms, see HPI. Objective Last 24 Hrs of Vital Signs/I&O Vital Signs Date Time Temp Pulse Resp B/P B/P Pulse O2 O2 Flow FiO2 Mean Ox Delivery Rate 03/19 902 94 Room Air 03/19 820 80 110/68 03/19 800 94 Room Air Room Air 05/10 0800 94 Room Air Room Air 03/19 0641 97.8 81 18 106/66 93 05/ 0000 Nasal 1.0L Cannula 03/18 2220 103 100/60 03/18 2210 97.6 103 20 100/60 93 Nasal 2.5L Cannula 03/18 1946 92 Nasal 2.0L Cannula 03/18 1639 97.8 03/18 1600 94 Nasal 1.0L Cannula 03/18 1359 97.4 91 18 100/60 94 Nasal 1.0L Cannula 03/18 1300 Nasal 1.0L Cannula Physical Exam General Appearance: Alert, Oriented X3, Cooperative, No Acute Distress Cardiovascular: Regular Rate, Normal S1, Normal S2, No Murmurs Lungs: Normal Air Movement Abdomen: Soft, No Tenderness, No Hepatospenomegaly Neurological: Normal Speech, Strength at 5/5 X4 Ext, Normal Tone, Sensation Intact Extremities: No Cyanosis, No Edema, Normal Pulses Current Medications: Current Medications Sig/Rose Marie Start time Last Medication Dose Route Stop Time Status Admin Albuterol Sulfate 3 ML BID 03/17 2100 AC 03/19 INH 0858 Aspirin Buffered 81 MG DAILY 03/18 900 AC 03/19 PO 0820 Azithromycin 500 MG Q24H 03/18 1630 CAN Sodium Chloride 250 ML IV 03/21 1729 Ceftriaxone Sodium 1,000 MG Q24H 03/19 0030 CAN IV Cefuroxime Sodium 500 MG Q12 03/18 2100 AC 03/19 PO 0944 Cholecalciferol 1,000 IU DAILY 03/18 900 AC 03/19 PO 0821 Ciprofloxacin 500 MG BID 03/17 2100 DC 03/18 PO 03/2153 Colchicine 300 MCG TID 03/18 2100 AC 03/19 PO 0944 Colchicine 300 MCG DAILY 03/18 900 DC 03/18 PO 0954 Enoxaparin Sodium 40 MG DAILY 03/18 900 AC 03/19 SC 0820 Ezetimibe 10 MG DAILY 03/18 900 AC 03/19 PO 0821 Ibuprofen 400 MG BID 03/17 2100 DC 03/18 PO 0954 Levothyroxine Sodium 0.0625 MG DAILY AC 03/18 700 AC 03/19 PO 0545 Melatonin 3 MG AT BEDTIME 03/175 AC 03/18 PO 2220 Metoprolol Tartrate 25 MG BID 03/17 2100 AC 03/19 PO 0820 Omeprazole 40 MG DAILY AC 03/18 0700 AC 03/19 PO 0545 Patient Medication 1 ED ONE ONE 03/18 1215 DC 03/18 Teaching ED 03/18 1216 1217 Prednisone 20 MG DAILY 03/27 09 CAN PO 03/28 901 Prednisone 30 MG DAILY 03/25 900 CAN PO 03/26 901 Prednisone 40 MG DAILY 03/23 900 CAN PO 03/24 901 Prednisone 50 MG DAILY 03/21 900 CAN PO 03/22 901 Prednisone 60 MG DAILY 03/19 900 CAN PO 03/20 901 Prednisone 40 MG DAILY 03/19 09 AC 03/19 PO 0820 Last 24 Hrs of Labs/Mics: Laboratory Tests 03/19/18 0620: Anion Gap 12, Estimated GFR > 60, BUN/Creatinine Ratio 35.0 H, CBC w Diff NO MAN DIFF REQ, RBC 3.39 L, MCV 86.1, MCH 28.2, MCHC 32.7 L, RDW 15.2 H, MPV 7.4, Gran % 87.4 H, Lymphocytes % 7.6 L, Monocytes % 4.9, Eosinophils % 0.1, Basophils % 0, Absolute Granulocytes 11.7 H, Absolute Lymphocytes 1.0 L, Absolute Monocytes 0.7 H, Absolute Eosinophils 0, Absolute Basophils 0 03/18/18 1454: C-React Prot High Sens Cancelled, ESR Westergren Cancelled
--- NOTE | 2018-03-19 10:46 | Patient Discharge Instructions ---
Discharge Instructions General Discharge Information You were seen/treated for: Pneumonitis Watch for these problems: In case of chest pain, shortness of breath, nausea, vomiting please go to the nearest emergency room. 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 Diet Continue normal diet: Yes Activity Full Activity/No Limits: No Activity Self Limited: Yes Acute Coronary Syndrome Inclusion Criteria At DC or during hospital stay patient has or had the following: ACS DIAGNOSIS No Discharge Core Measures Meds if any: Prescribed or Continued at Discharge Meds if any: NOT Prescribed or Continued at Discharge Congestive Heart Failure Inclusion Criteria At DC or during hospital stay patient has or had the following: CHF DIAGNOSIS No Discharge Core Measures Meds if any: Prescribed or Continued at Discharge Meds if any: NOT Prescribed or Continued at Discharge Cerebrovascular accident Inclusion Criteria At DC or during hospital stay patient has or had the following: CVA/TIA Diagnosis No Discharge Core Measures Meds if any: Prescribed or Continued at Discharge Meds if any: NOT Prescribed or Continued at Discharge Venous thromboembolism Inclusion Criteria VTE Diagnosis No VTE Type NONE VTE Confirmed by (Test) NONE Discharge Core Measures - Per Current guidelines, there needs to be overlap - treatment for the first 5 days of Warfarin therapy. - If discharged on Warfarin prior to 5 days of - overlap therapy, the patient will need to be - assessed for post discharge needs including - *Post discharge parental anticoagulation - *Warfarin and/or parental anticoagulation education - *Follow up date to check INR post discharge At least 5 days overlap therapy as Inpatient No Meds if any: Prescribed or Continued at Discharge Note: Overlap Therapy is Warfarin and Anticoagulant Meds if any: NOT Prescribed or Continued at Discharge
[2018-03-19] MEDS ORDERED: CEFUROXIME250 M1 PO ×2 (10:49→14:40)
[2018-03-19] MEDS ORDERED: PREDNISONE10 M2 PO ×6 (10:56→14:42)
[2018-03-19] MEDS ORDERED: COLCHICINE0.6 M2 PO ×2 (11:16→14:40)
--- NOTE | 2018-03-19 12:14 | PN- Att Addend ---
Attending Addendum Attending Brief Note Patient feeling better, ambulated with the nurse and only for a few seconds her O2 saturation dropped a little bit him otherwise it was fine. Vital signs are stable no fever noted no new changes on physical therapy appreciate Dr. Campos's input and recommendations. Waiting for cardiology to see the patient slowly tapering down the steroids if okay with cardiology then we'll start disposition plans also have cardiology decide about the use of statins in an 87-year-old female Intake & Output 03/190 03/18 0400 03/17 1600 03/17 0400 Intake Total 880 240 Output Total 200 Balance 880 40 Intake, IV 20 Intake, Oral 860 240 Number 0 Bowel Movements Output, Urine 200 Patient 128 lb 128 lb Weight Current Medications Sig/Rose Marie Start time Last Medication Dose Route Stop Time Status Admin Albuterol Sulfate 3 ML BID 03/17 2100 AC 03/19 INH 0858 Aspirin Buffered 81 MG DAILY 03/18 900 AC 03/19 PO 0820 Azithromycin 500 MG Q24H 03/18 1630 CAN Sodium Chloride 250 ML IV 03/21 1729 Ceftriaxone Sodium 1,000 MG Q24H 03/19 0030 CAN IV Cefuroxime Sodium 500 MG Q12 03/18 2100 AC 03/19 PO 0944 Cholecalciferol 1,000 IU DAILY 03/18 900 AC 03/19 PO 0821 Ciprofloxacin 500 MG BID 03/17 2100 DC 03/18 PO 03/2153 Colchicine 300 MCG TID 03/18 2100 AC 03/19 PO 0944 Colchicine 300 MCG DAILY 03/18 900 DC 03/18 PO 0954 Enoxaparin Sodium 40 MG DAILY 03/18 900 AC 03/19 SC 0820 Ezetimibe 10 MG DAILY 03/18 900 AC 03/19 PO 0821 Ibuprofen 400 MG BID 03/17 2100 DC 03/18 PO 0954 Levothyroxine Sodium 0.0625 MG DAILY AC 03/18 700 AC 03/19 PO 0545 Melatonin 3 MG AT BEDTIME 03/17 2215 AC 03/18 PO 2220 Metoprolol Tartrate 25 MG BID 03/17 2100 AC 03/19 PO 0820 Omeprazole 40 MG DAILY AC 03/18 700 AC 03/19 PO 0545 Patient Medication 1 ED ONE ONE 03/18 1215 DC 03/18 Teaching ED 05/09 1216 1217 Prednisone 20 MG DAILY 03/27 900 CAN PO 03/28 901 Prednisone 30 MG DAILY 03/25 900 CAN PO 03/26 901 Prednisone 40 MG DAILY 03/23 900 CAN PO 03/24 901 Prednisone 50 MG DAILY 03/21 900 CAN PO 03/22 901 Prednisone 60 MG DAILY 03/19 900 CAN PO 03/20 901 Prednisone 40 MG DAILY 03/19 09 AC 03/19 PO 0820 Laboratory Tests 03/19/18 0620: Anion Gap 12, Estimated GFR > 60, BUN/Creatinine Ratio 35.0 H, CBC w Diff NO MAN DIFF REQ, RBC 3.39 L, MCV 86.1, MCH 28.2, MCHC 32.7 L, RDW 15.2 H, MPV 7.4, Gran % 87.4 H, Lymphocytes % 7.6 L, Monocytes % 4.9, Eosinophils % 0.1, Basophils % 0, Absolute Granulocytes 11.7 H, Absolute Lymphocytes 1.0 L, Absolute Monocytes 0.7 H, Absolute Eosinophils 0, Absolute Basophils 0 03/18/18 1454: C-React Prot High Sens Cancelled, ESR Westergren Cancelled 03/18/18 1120: Anion Gap 18 H, Estimated GFR 59 L, BUN/Creatinine Ratio 28.9 H, TIBC 300, Ferritin 151.0, Lactate Dehydrogenase 574, C-Reactive Prot, Quant > 9.0 H, C- React Prot High Sens > 15.0 H, Vitamin B12 718, Folate 13.6, CBC w Diff NO MAN DIFF REQ, RBC 3.66 L, MCV 85.9, MCH 28.2, MCHC 32.8 L, RDW 15.2 H, MPV 7.4, Gran % 91.0 H, Lymphocytes % 5.1 L, Monocytes % 3.7, Eosinophils % 0.1, Basophils % 0.1, Absolute Granulocytes 16.8 H, Absolute Lymphocytes 0.9 L, Absolute Monocytes 0.7 H, Absolute Eosinophils 0, Absolute Basophils 0, ESR Westergren 40 H 03/18/18 0800: Haptoglobin Pending 03/18/18 0725: Ref Lab Test Result Pending 03/17/18 1630: Urinalysis LIGHT H, Urine Color YEL, Urine Clarity CLEAR, Urine pH 6.0, Ur Specific [place] 1.020, Urine Protein NEG, Urine Ketones NEG, Urine Nitrite NEG, Urine Bilirubin NEG, Urine Urobilinogen 0.2, Ur Leukocyte Esterase NEG, Ur Microscopic SEDIMENT EXAMINED, Urine RBC 1-3, Urine WBC 1-3 H, Ur Epithelial Cells FEW, Urine Bacteria FEW H, Hyaline Casts RARE H, Urine Mucus MOD H, Urine Hemoglobin SMALL H, Urine Glucose NEG 03/17/18 1030: Anion Gap 15, Estimated GFR > 60, BUN/Creatinine Ratio 17.5, Glucose 96, Calcium 9.1, Total Bilirubin 0.6, AST 20, ALT 31, Alkaline Phosphatase 121, Troponin I < 0.01, Ivu-X-Oaqznrerzej Pept 710 H, Total Protein 7.0, Albumin 3.7, Globulin 3.3, Albumin/Globulin Ratio 1.1, D-Dimer High Sensitivty 2663 H, CBC w Diff MAN DIFF ORDERED, RBC 4.00 L, MCV 85.8, MCH 27.9, MCHC 32.5 L, RDW 15.2 H, MPV 7.0 L, Gran % 87.9 H, Lymphocytes % 6.4 L, Monocytes % 5.4, Eosinophils % 0.1 , Basophils % 0.2, Absolute Granulocytes 17.1 H, Segmented Neutrophils 87 H, Absolute Lymphocytes 1.2, Lymphocytes 10 L, Monocytes 3, Absolute Monocytes 1.0 H, Absolute Eosinophils 0, Absolute Basophils 0, Platelet Estimate INCREASED, Normocytic RBCs VERIFIED, Normochromic RBCs VERIFIED Microbiology 03/17 1630 URINE ROUT: Legionella Antigen - COMP 03/17 1630 URINE ROUT: Streptococcus pneumoniae Antigen (M - COMP 03/17 163 URINE ROUT: Urine Culture - RES ENTEROCOCCUS STAPH SPECIES 03/17 1625 BLOOD: Blood Culture - RES 03/17 162 BLOOD: Blood Culture - RES 03/17 161 NASOPHARYN: Influenza Virus A & B Rapid Smear - COMP Vital Signs Date Time Temp Pulse Resp B/P B/P Pulse O2 O2 Flow FiO2 Mean Ox Delivery Rate 03/19 0902 94 Room Air 03/19 08 80 110/68 03/19 08 94 Room Air Room Air 03/19 800 94 Room Air Room Air 03/19 0641 97.8 81 18 106/66 93 05/ 0000 Nasal 1.0L Cannula 03/18 2220 103 100/60 03/18 2210 97.6 103 20 100/60 93 Nasal 2.5L Cannula 03/18 1946 92 Nasal 2.0L Cannula 03/18 1639 97.8 03/18 1600 94 Nasal 1.0L Cannula 03/18 1359 97.4 91 18 100/60 94 Nasal 1.0L Cannula 03/18 1300 Nasal 1.0L Cannula White count slowly coming down.
--- NOTE | 2018-03-19 13:22 | ECHOCARDIOGRAM REPORT ---
DORIS RESENDEZ Age: 87 : 1930 Gender: F Exam Date: 03/18/2018 19:02 Exam Location: [address] [place] [address] Ht (in): 62 Wt (lb): 128 BSA: 1.60 BP: 100 / 60 Ordering Physician: Gaby Armas MD Referring Physician: Brody Berger MD, PhD Technologist: Vanessa Valentine [facility] Room Number: [id number] Indications: CHEST PAIN Rhythm: Technical Quality: good FINDINGS Left Ventricle Normal left ventricular size, wall thickness and systolic function with no obvious regional wall motion abnormalities. The ejection fraction is visually estimated at 60%. Right Ventricle The right ventricle is normal in size and function. Right Atrium The right atrium is normal in size. Left Atrium The left atrium is normal in size. The interatrial septum is intact. Mitral Valve The mitral valve is normal in structure and function. There is mild mitral regurgitation. Aortic Valve Structurally normal aortic valve without significant sclerosis or stenosis. There is no aortic regurgitation. Tricuspid Valve The tricuspid valve is normal in structure and function. There is mild tricuspid regurgitation. Pulmonary artery systolic pressure is normal. Pulmonic Valve Structurally normal pulmonic valve. There is trace pulmonic regurgitation. Pericardium Normal pericardium with trace/physiologic effusion. No pleural effusion. Great Vessels Normal aortic root dimension. The aortic arch and great vessels are well seen and are normal. CONCLUSIONS 1. Normal EF of 60%. 2. Mild mitral regurgitation. 3. Mild tricuspid regurgitation. 4. Trace pulmonic regurgitation. 5. Trace and physiologic pericardial effusion. Brody Berger M.D. (Electronically Signed) Final Date: 19 Mar 2018 13:22 MEASUREMENTS (Male / Female) Normal Values 2D ECHO LV Diastolic Diameter PLAX 3.6 cm 4.2 - 5.9 / 3.9 - 5.3 cm LV Systolic Diameter PLAX 2.0 cm 2.1 - 4.0 cm LV Fractional Shortening PLAX 45.3 % 25 - 46 % LV Ejection Fraction 2D Teich 77.5 % IVS Diastolic Thickness 0.8 cm LVPW Diastolic Thickness 1.1 cm LV Relative Wall Thickness 0.5 RV Internal Dim ED PLAX 2.3 cm 1.9 - 3.8 cm LVOT Diameter 1.7 cm Aortic Root Diameter 2.7 cm LA Systolic Diameter LX 3.6 cm 3.0 - 4.0 / 2.7 - 3.8 cm LA Volume 30.0 cm 18 - 58 / 22 - 52 cm DOPPLER AV Peak Velocity 116.0 cm/s AV Peak Gradient 5.4 mmHg AV Mean Velocity 85.6 cm/s AV Mean Gradient 3.0 mmHg AV Velocity Time Integral 22.2 cm LVOT Mean Velocity 64.8 cm/s LVOT Mean Gradient 2.0 mmHg LVOT Velocity Time Integral 16.7 cm LVOT Stroke Volume 37.9 cm AV Area Cont Eq vti 1.7 cm MV Peak Velocity 124.0 cm/s MV Peak Gradient 6.2 mmHg MV Mean Velocity 72.3 cm/s MV Mean Gradient 2.0 mmHg Mitral E Point Velocity 98.7 cm/s Mitral A Point Velocity 112.0 cm/s Mitral E to A Ratio 0.9 MV Deceleration [place] 776.0 cm/s MV Deceleration Time 217.0 ms TR Peak Velocity 267.0 cm/s TR Peak Gradient 28.5 mmHg Right Atrial Pressure 5.0 mmHg Pulmonary Artery Systolic Pressu 33.5 mmHg Right Ventricular Systolic Press 33.5 mmHg PV Peak Velocity 82.7 cm/s PV Peak Gradient 2.7 mmHg PV Mean Velocity 56.4 cm/s PV Mean Gradient 1.0 mmHg PV Velocity Time Integral 16.0 cm LV E' Lateral Velocity 12.5 cm/s Mitral E to LV E' Lateral Ratio 7.9 LV E' Septal Velocity 13.4 cm/s Mitral E to LV E' Septal Ratio 7.4
--- NOTE | 2018-03-19 13:53 | PN- Cardiology ---
Subjective Subjective: * No chest discomfort or shortness of breath. A mild cough persists. * Only a physiologic pericardial effusion noted on echo. * platelets remain elevated at 884 Objective Vital Signs and I&Os Vital Signs Date Time Temp Pulse Resp B/P B/P Pulse O2 O2 Flow FiO2 Mean Ox Delivery Rate 03/19 0902 94 Room Air 03/19 0820 80 110/68 03/19 0800 94 Room Air Room Air 03/19 0800 94 Room Air Room Air 03/19 0641 97.8 81 18 106/66 93 03/19 0000 Nasal 1.0L Cannula 03/18 2220 103 100/60 03/18 2210 97.6 103 20 100/60 93 Nasal 2.5L Cannula 03/18 1946 92 Nasal 2.0L Cannula 03/18 1639 97.8 03/18 1600 94 Nasal 1.0L Cannula 03/18 1359 97.4 91 18 100/60 94 Nasal 1.0L Cannula Intake & Output 03/19 1600 03/19 0800 03/19 0000 03/18 1600 03/18 0800 03/18 0000 Intake Total 580 300 240 Output Total 200 Balance 580 300 40 Intake, IV 20 Intake, Oral 560 300 240 Number 0 Bowel Movements Output, Urine 200 Patient 128 lb Weight Physical Exam: General: WD/WN female in NAD; alert and oriented x 3 HEENT: NC/AT, PERRL, EOMI Neck: no JVD, no carotid bruit Heart: RRR with 2/6 systolic murmur at the apex Lungs: no crackles or wheezing Abdomen: soft, NT, +ve bowel sounds Extremties: no edema Assessment/Plan Assessment/Plan * This patient has chest discomfort that is only in the setting of a cough. The chest discomfort has resolved and her cough is minimal. Her chest CT is suspicious for a resolving pneumonia/pneumonitis. Her pericardial effusion was trace on her recent prior echo and a repeat echocardiogram yesterday only shows a trace and physiologic pericardial effusion. Continue colchicine and a steroid taper on the suspicion of pericarditis. 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 Obtain a hematology consult. Check iron studies and serum haptoglobin. * Continue Metoprolol at 25mg BID. Continue telemetry? No
--- NOTE | 2018-03-19 14:16 | PN- Pulmonary ---
Subjective HPI/Critical Care Issues: * No chest discomfort or shortness of breath. A mild cough persists. * Only a physiologic pericardial effusion noted on echo. * platelets remain elevated at 884 much improved Objective Current Medications: Current Medications Sig/Rose Marie Start time Last Medication Dose Route Stop Time Status Admin Albuterol Sulfate 3 ML BID 03/17 2100 AC 03/19 INH 0858 Aspirin Buffered 81 MG DAILY 03/18 900 AC 03/19 PO 0820 Azithromycin 500 MG Q24H 03/18 1630 CAN Sodium Chloride 250 ML IV 03/21 1729 Ceftriaxone Sodium 1,000 MG Q24H 03/19 0030 CAN IV Cefuroxime Sodium 500 MG Q12 03/18 2100 AC 03/19 PO 0944 Cholecalciferol 1,000 IU DAILY 03/18 900 AC 03/19 PO 0821 Ciprofloxacin 500 MG BID 03/17 2100 DC 03/18 PO 03/2153 Colchicine 300 MCG TID 03/18 2100 AC 03/19 PO 1329 Colchicine 300 MCG DAILY 03/18 900 DC 03/18 PO 0954 Enoxaparin Sodium 40 MG DAILY 03/18 900 AC 03/19 SC 0820 Ezetimibe 10 MG DAILY 03/18 900 AC 03/19 PO 0821 Ibuprofen 400 MG BID 03/17 2100 DC 03/18 PO 0954 Levothyroxine Sodium 0.0625 MG DAILY AC 03/18 700 AC 03/19 PO 0545 Melatonin 3 MG AT BEDTIME 03/17 221 AC 03/18 PO 2220 Metoprolol Tartrate 25 MG BID 03/17 2100 AC 03/19 PO 0820 Omeprazole 40 MG DAILY AC 03/18 700 AC 03/19 PO 0545 Prednisone 20 MG DAILY 03/27 900 CAN PO 03/28 901 Prednisone 30 MG DAILY 03/25 900 CAN PO 03/26 901 Prednisone 40 MG DAILY 03/23 900 CAN PO 03/24 901 Prednisone 50 MG DAILY 03/21 900 CAN PO 03/22 901 Prednisone 60 MG DAILY 03/19 900 CAN PO 03/20 901 Prednisone 40 MG DAILY 03/19 900 AC 03/19 PO 0820 Vital Signs & I&O Last 24 Hrs of Vitals and I&O: Vital Signs Date Time Temp Pulse Resp B/P B/P Pulse O2 O2 Flow FiO2 Mean Ox Delivery Rate 03/19 902 94 Room Air 05/10 0820 80 110/68 03/19 0800 94 Room Air Room Air 03/19 0800 94 Room Air Room Air 03/19 0641 97.8 81 18 106/66 93 03/19 0000 Nasal 1.0L Cannula 03/18 2220 103 100/60 03/18 2210 97.6 103 20 100/60 93 Nasal 2.5L Cannula 03/18 1946 92 Nasal 2.0L Cannula 03/18 1639 97.8 03/18 1600 94 Nasal 1.0L Cannula Intake & Output 03/19 1600 03/19 0800 05 0000 Intake Total 800 Output Total Balance 800 Intake, Oral 800 Impression/Plan Impression/Plan Impression/Plan: General Appearance Alert, Oriented X3, Cooperative, No Acute Distress Skin face bilateral rash Neck Supple, No JVD, No thryomegaly, +2 Carotid Pulse wo Bruit Cardiovascular Regular Rate, Normal S1, Normal S2, No Murmurs Lungs increased breath sounds on the right side Abdomen Soft, No Tenderness, No Hepatospenomegaly Neurological Normal Speech, Strength at 5/5 X4 Ext, Normal Tone, Sensation Intact CT chest IMPRESSION: - No evidence of pulmonary embolism. - [id number] centrilobular emphysema. - Within the posterior segment of the right upper lobe, there is a new region of subtle, patchy groundglass opacity and peribronchiolar reticular opacity suspicious for a mild pneumonia. - Interval decreased size of bilateral pleural effusions and of the pericardial effusion compared to 03/07/2018. DICTATED BY: Jonatan Garner MD DATE/TIME DICTATED:03/17/18 / 1641 This is a lady with radiological evidence suggestive of significant emphysema, recent chest discomfort and pain and clinical evidence suggestive of pericarditis with pericardial effusion recently treated with nonsteroidal anti- inflammatory, previous history of hypertension, hyperlipidemia, significant smoking, previous NSVT versus atrial fibrillation, markedly elevated CRP and ESR with clinical evidence suggestive of serositis, previous history of mildly elevated rheumatoid factor with no clinical evidence osteoarthritis, now has * Resolved Shortness of breath with chest discomfort in those lady with previous history of smoking and significant COPD. Patient does not seem to be actively wheezing however mild COPD exacerbation cannot be ruled out * Chest CT scan suggestive one segmental infiltrate suggestive of probable pneumonitis. Needs to be treated with antibiotics * Recent pericardial effusion, pericarditis with thickened pericardium with elevated ESR and CRP with borderline high rheumatoid factor with no clinical evidence suggestive of rheumatoid arthritis. Significant serositis needs to be ruled out. Patient is now on anti-inflammatory. * Slowly improving thrombocytosis appears to be due to reactionary which needs to be followed as out pt RECOMMENDATIONS 40 mg prednisone and taper over 2 weeks Changed to by mouth Ceftin twice a day for total of 4 days Continue other medications as noted Start colchicine 0.6 mg twice a day for one month for pericarditis Continue omeprazole Okay to discharge soon
[2018-03-19 14:19] VITALS: BP 99/57
== END 2018-03-19 15:20 ==
LOC: ERH 09:17 → 2NB 14:30 → ERHI 14:30 → ENRESERV 16:49 → 2NB 17:41 → ENTRNSPT 17:41 → EDTRNSPTSTS 17:49 → EDTRNSPT 17:49 → 2NB 17:56 → CMPTRNSPT 18:19 → ENPENDDIS 03-19 14:38 → ENTRNSPT 03-19 15:00 → EDTRNSPTSTS 03-19 15:10 → EDTRNSPT 03-19 15:10 → 2NB 03-19 15:20 → CMPTRNSPT 03-19 15:22
PROVIDERS: Emergency Medicine; Internal Medicine Hematology & Oncology; Student in an Organized Health Care Education/Training Program
DX: I31.3 Pericardial effusion (noninflammatory) (principal); E03.9 Hypothyroidism, unspecified; I10 Essential (primary) hypertension; E78.5 Hyperlipidemia, unspecified; Z79.82 Long term (current) use of aspirin; Z87.891 Personal history of nicotine dependence; D72.829 Elevated white blood cell count, unspecified; Z79.52 Long term (current) use of systemic steroids; D47.3 Essential (hemorrhagic) thrombocythemia; M19.90 Unspecified osteoarthritis, unspecified site; R07.9 Chest pain, unspecified
CPT/HCPCS: 1263; 1328; 1530; 1748; 6040; 87184; 36592; 71045; 81001; 82436; 83010; 87040; 87086; 87147; 87449; 87450; 87804; 87804-59; 93005; 93010; 93306; 96372; 96374; 96375; 97161-GP; G0378; G8978-GP; G8979-GP; G8980-GP; J0131; J0456; J0696; J1650; J2920; J2930; J7040